=== PATIENT | male | born 1975 | race Caucasian/White ===

== ENCOUNTER 2018-12-03 20:37 | Inpatient (IN) | payer MEDICAID, OTHER ==
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
[2018-12-03] MEDS ORDERED: LORazepam 1 MG TAB PO PRN (23:28)
[2018-12-03] MEDS ORDERED: ACETAMINOPHEN TAB 325 MG TAB PO PRN (23:28)
[2018-12-03] MEDS ORDERED: ZIPRASIDONE 20 MG VIAL IM PRN (23:28)
[2018-12-03] MEDS ORDERED: MAGNESIUM HYDROXIDE 2,400 MG/10 ML CUP PO PRN (23:28)
[2018-12-03] MEDS ORDERED: MAG HYDROX/AL HYDROX/SIMETH 30 ML CUP PO PRN (23:28)
--- NOTE | 2018-12-04 | P.HPIM ---
History of Present Illness H&P Date: 12/03/18 The patient is a 43 yo M with a PMH of HLD, active smoker, depression, and polysubstance abuse presented to the ED for depression and suicidal ideation. The patient reported that he did not wish to be around people any longer and was having thoughts of hurting himself and was thereby admitted to the MHU. The patient was seen in the MHU. He reported feeling somewhat the same since admission. He states poor follow-up with a physician and notes not taking any medications. He did state that he made lifestyle modifications to improve his lipid profile. He however denied any active complaints. Denied chest pain, SOB, fever, chills, abd pain, nausea, vomiting, diarrhea, or sick contacts. Review of Systems Pertinent positives and negatives as discussed in HPI, a complete review of systems was performed and all other systems are negative. Past Medical History Past Medical History: Hyperlipidemia Additional Past Medical History / Comment(s): arthritis, History of Any Multi-Drug Resistant Organisms: None Reported Additional Past Surgical History / Comment(s): corrective srugery to mouth and throat as a child, Past Psychological History: Anxiety, Depression, PTSD Smoking Status: Current every day smoker Past Alcohol Use History: None Reported Past Drug Use History: None Reported Medications and Allergies Home Medications Medication Instructions Recorded Confirmed Type Calcium Carbonate [Tums] 1,000 mg PO TID PRN 12/03/18 12/03/18 History Allergies Allergy/AdvReac Type Severity Reaction Status Date / Time No Known Allergies Allergy Verified 12/03/18 23:15 Physical Exam Vitals: Vital Signs Temp Pulse Resp BP Pulse Ox 12/03/18 23:18 98.9 F 81 16 137/92 95 12/03/18 20:51 98.5 F 108 H 17 138/95 95 Intake and Output 12/03/18 12/03/18 12/04/18 14:59 22:59 06:59 Other: Weight 97.976 kg General: non toxic, no distress, appears at stated age, obese Derm: no unusual rashes/lesions no unusual ecchymoses, warm, dry Head: atraumatic, normocephalic, symmetric Eyes: EOMI, no lid lag, anicteric sclera, pupils equal round reactive to light ENT: Nose and ears atraumatic, no thrush, no pharyngeal erythema Neck: No thyromegaly, no cervical lymphadenopathy, trachea midline, supple Mouth: no lip lesion, mucus membranes moist Cardiovascular: S1S2 reg, no murmur, positive posterior tibial pulse bilateral, no edema, capillary refill less than 2 seconds Lungs: CTA bilateral, no rhonchi, no rales , no accessory muscle use Abdominal: soft, nontender to palpation, no guarding, no appreciable organomegaly, normal bowel sounds Ext: no gross muscle atrophy, muscle strength 5 out of 5 in all 4 extremities grossly, no contractures, Neuro: CN II-XI grossly intact, light touch intact all 4 extremities, finger to nose within normal limits, Psych: Alert, oriented, flat affect Assessment and Plan Plan: Hypertension -Currently borderline BP -Monitor and if continues to be high, will start antihypertensives Active tobacco abuse -Patient advised on the importance of cessation -Nicotine patch as needed Polysubstance abuse -Patient advised on importance of cessation Depression with suicidal ideation -As per psychiatry Thank you for allowing us to participate in the care of this patient. We will follow peripherally. Do not hesitate to contact us with questions. Someone can be reached from the [facility] hospitalist group at all hours of the day at [phone].
[2018-12-04 01:18] VITALS: BMI 29.7
[2018-12-04 09:01] LABS: Basophils % (A) 0 %; Eosinophils # (A) 0.2 k/uL (0-0.7); Eosinophils % (A) 2 %; HCT 47.1 % (39.0-53.0); HGB 15.4 gm/dL (13.0-17.5); Lymphocytes # (A) 1.7 k/uL (1.0-4.8); Lymphocytes % (A) 16 %; MCH 31.2 pg (25.0-35.0); MCHC 32.6 g/dL (31.0-37.0); MCV 95.6 fL (80.0-100.0); Mean Platelet Volume 7.9; Monocytes # (A) 0.7 k/uL (0-1.0); Monocytes % (A) 7 %; Neutrophils # (A) 7.5 k/uL (1.3-7.7); Neutrophils % (A) 73 %; Platelet Count 279 k/uL (150-450); RBC 4.92 m/uL (4.30-5.90); RDW 13.9 % (11.5-15.5); WBC 10.3 k/uL (3.8-10.6)
[2018-12-04 09:19] LABS: ALT 30 U/L (21-72); AST 22 U/L (17-59); African American GFR (CKD) >90 (>60 ml/min/1.73 sqM); Albumin 3.4 g/dL (3.5-5.0); Alkaline Phosphatase 82 U/L (38-126); Anion Gap 3 mmol/L; Blood Urea Nitrogen 15 mg/dL (9-20); Calcium 8.9 mg/dL (8.4-10.2); Carbon Dioxide 32 mmol/L (22-30); Chloride 103 mmol/L (98-107); Cholesterol 181 mg/dL (<200); Glucose 94 mg/dL (74-99); HDL Cholesterol 42 mg/dL (40-60); LDL Cholesterol,Calculated 122 mg/dL (0-99); Potassium 4.7 mmol/L (3.5-5.1); Sodium 138 mmol/L (137-145); Total Bilirubin 0.8 mg/dL (0.2-1.3); Total Protein 5.6 g/dL (6.3-8.2); Triglycerides 87 mg/dL (<150)
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
[2018-12-05 06:42] VITALS: BP 111/70; PULSE 61; RESP 16; TEMP 98.1
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
[2018-12-05 12:25] LABS: Hemoglobin A1C 5.4 % (4.0-6.0)
== END 2018-12-05 11:52 | disposition home or self-care (01) | DRG 881 ==
LOC: EC 20:37 → 3MHU 22:37
PROVIDERS: ADMIT Psychiatry & Neurology Psychiatry; ATTEND Psychiatry & Neurology Psychiatry
DX: F32.9 Major depressive disorder, single episode, unspecified (principal); F43.10 Post-traumatic stress disorder, unspecified; E78.00 Pure hypercholesterolemia, unspecified; E78.5 Hyperlipidemia, unspecified; F17.210 Nicotine dependence, cigarettes, uncomplicated; I10 Essential (primary) hypertension; K21.9 Gastro-esophageal reflux disease without esophagitis; Z65.3 Problems related to other legal circumstances; Z87.730 Personal history of (corrected) cleft lip and palate; Z91.19 Patient's noncompliance with other medical treatment and regimen; Z62.810 Personal history of physical and sexual abuse in childhood; Z91.5 Personal history of self-harm; F60.2 Antisocial personality disorder; M19.90 Unspecified osteoarthritis, unspecified site
CPT/HCPCS: 80053; 80061; 82075; 83036; 84443; 85025; 99285

== ENCOUNTER 2019-01-31 13:03 | Emergency (ER) | payer OTHER ==
--- NOTE | 2019-01-31 14:05 | XR ---
EXAMINATION TYPE: XR foot complete LT DATE OF EXAM: 01/31/2019 CLINICAL HISTORY: Foot pain for one week. TECHNIQUE: Frontal, lateral, and oblique images of the left foot are obtained. COMPARISON: None FINDINGS: There is no acute fracture/dislocation evident in the left foot. Tiny superior calcaneal s pur. Accessory ossicle near the cuboid bone. Mild narrowing and spurring talonavicular articulation. The overlying soft tissue appears unremarkable. IMPRESSION: As above.
--- NOTE | 2019-01-31 14:09 | ED ---
Extremity Problem HPI - General Chief complaint: Extremity Problem,Nontraumatic Stated complaint: Foot pain Time Seen by Provider: 01/31/19 13:30 Source: patient, RN notes reviewed Mode of arrival: ambulatory Limitations: no limitations - History of Present Illness Initial comments: This a 43-year-old male presents emergency from she went left foot pain. Patient states has been bothersome over the last 10-14 days. Patient states that he forces a large amount of large bend at work and states that he feels that this exacerbates it. Patient denies any numbness or tingling. He states the pain is just proximal to his first and second digit. He states he gets swollen after work denies any current redness, increased warmth, numbness or tingling or any pain in his calf. Patient denies any prior fractures no trauma noted. - Related Data Previous Rx's Medication Instructions Recorded Ibuprofen [Motrin] 600 mg PO Q8HR PRN #30 tab 01/31/19 Allergies Allergy/AdvReac Type Severity Reaction Status Date / Time No Known Allergies Allergy Verified 01/31/19 13:41 Review of Systems ROS Statement: Those systems with pertinent positive or pertinent negative responses have been documented in the HPI. ROS Other: All systems not noted in ROS Statement are negative. Past Medical History Past Medical History: Hyperlipidemia Additional Past Medical History / Comment(s): arthritis, History of Any Multi-Drug Resistant Organisms: None Reported Additional Past Surgical History / Comment(s): corrective srugery to mouth and throat as a child, Past Anesthesia/Blood Transfusion Reactions: No Reported Reaction Past Psychological History: Anxiety, Depression, PTSD Smoking Status: Current every day smoker Past Alcohol Use History: Daily, Heavy Past Drug Use History: Marijuana General Exam Limitations: no limitations General appearance: alert, in no apparent distress Head exam: Present: atraumatic, normocephalic, normal inspection Respiratory exam: Present: normal lung sounds bilaterally. Absent: respiratory distress, wheezes, rales, rhonchi, stridor Cardiovascular Exam: Present: regular rate, normal rhythm, normal heart sounds. Absent: systolic murmur, diastolic murmur, rubs, gallop, clicks Extremities exam: Present: other (Left foot there is tenderness the first and second metatarsal region, neurovascular intact, there is no erythema pedal pulses equal bilaterally Refill less than 2 seconds no ankle or calf tenderness) Course Vital Signs 01/31/19 13:23 Temperature 98.0 F Pulse Rate 97 Respiratory 16 Rate Blood Pressure 136/85 O2 Sat by Pulse 98 Oximetry Medical Decision Making - Medical Decision Making 43-year-old male present emergency Department for left foot pain x-rays were obtained which show some spurring, arthritic changes. Patient has no evidence of clinical gallop, no neurovascular issues. Patient symptoms more related to arthritis, tendinitis. Patient was started on anti-inflammatories patient will follow-up Dr. araujo and return for any worsening symptoms. Disposition Clinical Impression: Arthritis of left foot, Left foot pain Disposition: HOME SELF-CARE Condition: Stable Instructions (If sedation given, give patient instructions): Arthralgia (ED) Additional Instructions: Please return to the Emergency Department if symptoms worsen or any other concerns. Prescriptions: Ibuprofen [Motrin] 600 mg PO Q8HR PRN #30 tab PRN Reason: Pain Is patient prescribed a controlled substance at d/c from ED?: No Referrals: None,Stated [Primary Care Provider] - 1-2 days Syed Preciado MD [Medical Doctor] - 1-2 days Time of Disposition: 14:08
[2019-01-31 14:31] VITALS: BP 144/88; PULSE 92; RESP 18; TEMP 97.8
== END 2019-01-31 14:31 | disposition home or self-care (01) ==
LOC: EC 13:03
DX: M19.072 Primary osteoarthritis, left ankle and foot (principal); M77.52 Other enthesopathy of left foot and ankle; F17.200 Nicotine dependence, unspecified, uncomplicated
CPT/HCPCS: 99283

== ENCOUNTER 2019-08-17 17:02 | Emergency (ER) | payer OTHER ==
[2019-08-17] MEDS ORDERED: LORazepam 2 MG/ML INJ IM STA (17:31)
[2019-08-17] MEDS ORDERED: diphenhydrAMINE 50 MG/ML 1 ML VIAL IM STA (17:31)
[2019-08-17] MEDS ORDERED: HALOPERIDOL LACTATE 5 MG/ML 1 ML VIAL IM ONE (17:32)
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
[2019-08-17] MEDS ORDERED: DIPH,PERTUS(ACELL)TETVAC-LF 0.5 ML VIAL IM ONE (17:46)
[2019-08-17 17:47] LABS: Appearance,Urine Clear (Clear); Bilirubin,Urine Negative (Negative); Blood,Urine Negative (Negative); Color,Urine Colorless; Glucose,Urine (UA) Negative (Negative); Ketones,Urine Negative (Negative); Leukocyte Esterase,Urine Negative (Negative); Nitrite,Urine Negative (Negative); PH, Urine 5.5 (5.0-8.0); Protein,Urine Negative (Negative); Specific Gravity,Urine 1.002 (1.001-1.035); Urobilinogen,Urine <2.0 mg/dL (<2.0)
[2019-08-17 17:54] VITALS: BP 146/79; PULSE 86; RESP 16
[2019-08-17 18:03] LABS: Amphetamine Screen,Urine Not Detected (NotDetected); Barbiturate Screen,Urine Not Detected (NotDetected); Benzodiazepines Screen,Urine Not Detected (NotDetected); Cocaine Screen,Urine Not Detected (NotDetected); Methadone Screen, Urine Not Detected (NotDetected); Opiate Screen,Urine Not Detected (NotDetected); Oxycodone Screen, Urine Not Detected (NotDetected); Phencyclidine Screen,Urine Not Detected (NotDetected); Tricyclic Antidepressant,Urine Not Detected (NotDetected); Urn Cannabinoid Scrn Not Detected (NotDetected)
== END 2019-08-18 06:00 | disposition home or self-care (01) ==
LOC: EC 17:02
DX: F10.129 Alcohol abuse with intoxication, unspecified (principal); R45.1 Restlessness and agitation; S81.812A Laceration without foreign body, left lower leg, initial encounter; S81.811A Laceration without foreign body, right lower leg, initial encounter; F22 Delusional disorders; F17.200 Nicotine dependence, unspecified, uncomplicated; Z23 Encounter for immunization; Y90.6 Blood alcohol level of 120-199 mg/100 ml; X58.XXXA Exposure to other specified factors, initial encounter
CPT/HCPCS: 99285 ×2; 96372 ×4; 90471 ×2; 36415; 81003; 80306; 90715; G0480; J2060; J1200; J1630; 80320

== ENCOUNTER 2019-09-28 13:09 | Emergency (ER) | payer OTHER ==
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
[2019-09-28 15:09] VITALS: BP 120/80; PULSE 74; RESP 16; TEMP 98.3
== END 2019-09-28 15:12 | disposition home or self-care (01) ==
LOC: EC 13:09
DX: S93.402A Sprain of unspecified ligament of left ankle, initial encounter (principal); F17.200 Nicotine dependence, unspecified, uncomplicated; Z88.8 Allergy status to other drugs, medicaments and biological substances; V13.4XXA Pedal cycle driver injured in collision with car, pick-up truck or van in traffic accident, initial encounter; Y92.410 Unspecified street and highway as the place of occurrence of the external cause
CPT/HCPCS: 72170; 73590; 73610; 71046; 99284; 29515; L4350

== ENCOUNTER 2020-06-07 00:58 | Emergency (ER) | payer OTHER ==
--- NOTE | 2020-06-07 01:26 | ED ---
Psych HPI - General Chief Complaint: Psychiatric Symptoms Stated Complaint: Mental Health Time Seen by Provider: 06/07/20 01:06 Source: patient, family Mode of arrival: ambulatory - History of Present Illness Initial Comments: Patient is a 44-year-old man who presents with complaint that he is feeling more depressed than his usual. Patient otherwise not forthcoming. MD Complaint: feels depressed -: unknown Associated Psychiatric Symptoms: depression History of same: Yes Quality: getting worse Improves With: none Worsens With: none Context: recent alcohol abuse Associated Symptoms: denies other symptoms - Related Data Previous Rx's Medication Instructions Recorded Ibuprofen [Motrin] 600 mg PO Q8HR PRN #30 tab 01/31/19 Allergies Allergy/AdvReac Type Severity Reaction Status Date / Time lamotrigine [From Lamictal] Allergy Itching Verified 06/07/20 01:05 Review of Systems ROS Statement: Those systems with pertinent positive or pertinent negative responses have been documented in the HPI. ROS Other: All systems not noted in ROS Statement are negative. Constitutional: Denies: fever Respiratory: Denies: cough, dyspnea Cardiovascular: Denies: chest pain, palpitations Gastrointestinal: Denies: abdominal pain, vomiting, diarrhea Genitourinary: Denies: dysuria Musculoskeletal: Denies: back pain Skin: Denies: rash Neurological: Denies: headache, weakness, numbness, confusion Psychiatric: Reports: depression, suicidal thoughts. Denies: auditory hallucinations, visual hallucinations, homicidal thoughts Past Medical History Past Medical History: Hyperlipidemia Additional Past Medical History / Comment(s): arthritis, History of Any Multi-Drug Resistant Organisms: None Reported Additional Past Surgical History / Comment(s): corrective srugery to mouth and throat as a child, Past Anesthesia/Blood Transfusion Reactions: No Reported Reaction Past Psychological History: Anxiety, Depression, PTSD Smoking Status: Current every day smoker Past Alcohol Use History: Abuse, Heavy Past Drug Use History: Cocaine, Marijuana General Exam Limitations: no limitations General appearance: alert, in no apparent distress Head exam: Present: atraumatic, normocephalic Eye exam: Present: normal appearance. Absent: scleral icterus, conjunctival injection ENT exam: Present: normal oropharynx Respiratory exam: Present: normal lung sounds bilaterally. Absent: respiratory distress, wheezes, rales, rhonchi, stridor Cardiovascular Exam: Present: regular rate, normal rhythm, normal heart sounds. Absent: systolic murmur, diastolic murmur, rubs, gallop GI/Abdominal exam: Present: soft. Absent: distended, tenderness, guarding, rebound, rigid Extremities exam: Present: normal inspection, normal capillary refill. Absent: pedal edema Neurological exam: Present: alert, normal gait Skin exam: Present: warm, dry, intact, normal color. Absent: rash Course Vital Signs 06/07/20 06/07/20 01:00 06:04 Temperature 98.9 F 98.5 F Pulse Rate 115 H 100 Respiratory 20 18 Rate Blood Pressure 137/90 127/77 O2 Sat by Pulse 96 95 Oximetry Medical Decision Making - Medical Decision Making The patient is seen by behavioral health after sobriety and is recanting his statements. He does state he feels better. I reviewed with the patient and he is hafsa for safety. - Lab Data Lab Results 06/07/20 Range/Units 01:20 Urine Opiates Screen Not Detected (NotDetected) Ur Oxycodone Screen Not Detected (NotDetected) Urine Methadone Screen Not Detected (NotDetected) Ur Propoxyphene Screen Not Detected (NotDetected) Ur Barbiturates Screen Not Detected (NotDetected) U Tricyclic Antidepress Not Detected (NotDetected) Ur Phencyclidine Scrn Not Detected (NotDetected) Ur Amphetamines Screen Not Detected (NotDetected) U Methamphetamines Scrn Not Detected (NotDetected) U Benzodiazepines Scrn Not Detected (NotDetected) Urine Cocaine Screen Not Detected (NotDetected) U Marijuana (THC) Screen Detected H (NotDetected) Disposition Clinical Impression: Alcohol intoxication Disposition: HOME SELF-CARE Condition: Good Instructions (If sedation given, give patient instructions): Mood Disorders (ED) Is patient prescribed a controlled substance at d/c from ED?: No Referrals: None,Stated [Primary Care Provider] - 1-2 days
[2020-06-07 01:44] LABS: Amphetamine Screen,Urine Not Detected (NotDetected); Barbiturate Screen,Urine Not Detected (NotDetected); Benzodiazepines Screen,Urine Not Detected (NotDetected); Cocaine Screen,Urine Not Detected (NotDetected); Methadone Screen, Urine Not Detected (NotDetected); Opiate Screen,Urine Not Detected (NotDetected); Oxycodone Screen, Urine Not Detected (NotDetected); Phencyclidine Screen,Urine Not Detected (NotDetected); Tricyclic Antidepressant,Urine Not Detected (NotDetected); Urn Cannabinoid Scrn Detected (NotDetected)
[2020-06-07 06:06] VITALS: BP 127/77; PULSE 100; RESP 18; TEMP 98.5
== END 2020-06-07 07:00 | disposition home or self-care (01) ==
LOC: EC 00:58
DX: F10.129 Alcohol abuse with intoxication, unspecified (principal); F17.200 Nicotine dependence, unspecified, uncomplicated; Z88.8 Allergy status to other drugs, medicaments and biological substances; Y90.9 Presence of alcohol in blood, level not specified
CPT/HCPCS: 80306; 82075; 99284

== ENCOUNTER 2020-08-25 09:54 | Emergency (ER) | payer OTHER ==
[2020-08-25 10:00] VITALS: BP 188/110; PULSE 84; RESP 18; TEMP 97.6
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
== END 2020-08-25 10:10 | disposition left against medical advice (07) ==
LOC: EC 09:54
DX: R53.83 Other fatigue (principal); F41.9 Anxiety disorder, unspecified; F32.9 Major depressive disorder, single episode, unspecified; F17.200 Nicotine dependence, unspecified, uncomplicated; E78.5 Hyperlipidemia, unspecified; F12.90 Cannabis use, unspecified, uncomplicated; F14.90 Cocaine use, unspecified, uncomplicated
CPT/HCPCS: 99283

== ENCOUNTER 2020-08-25 11:35 | Inpatient (IN) | payer MEDICAID, OTHER ==
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
[2020-08-25] MEDS ORDERED: ACETAMINOPHEN TAB 325 MG TAB PO PRN (14:03)
[2020-08-25] MEDS ORDERED: MAG HYDROX/AL HYDROX/SIMETH 30 ML CUP PO PRN (14:03)
[2020-08-25] MEDS ORDERED: MAGNESIUM HYDROXIDE 2,400 MG/10 ML CUP PO PRN (14:03)
[2020-08-25] MEDS ORDERED: LORazepam 2 MG/ML INJ IM PRN (14:08)
[2020-08-25] MEDS ORDERED: HALOPERIDOL LACTATE 5 MG/ML 1 ML VIAL IM PRN (14:08)
[2020-08-26] MEDS: LORazepam 1 MG TAB PO PRN ×3 (03:37→18:49)
[2020-08-26] MEDS: haloperidoL 5 MG TAB PO PRN ×2 (03:37→18:49)
--- NOTE | 2020-08-26 03:57 | P.PN ---
Progress Note - Text Progress Note Date: 08/25/20 patient was not appropriate for evaluation at this time
--- NOTE | 2020-08-26 11:52 | P.HP ---
Psychiatric H&P - . H&P Date: 08/26/20 History & Physical: Allergies Allergy/AdvReac Type Severity Reaction Status Date / Time lamotrigine From Lamictal AdvReac Itching Verified 08/25/20 12:20 Vital Signs Temp 96.7 F L 08/25/20 14:33 Pulse 95 08/25/20 14:33 Resp 16 08/25/20 14:33 BP 147/87 08/25/20 14:33 Pulse Ox 99 08/25/20 11:58 Intake & Output 08/25/20 08/26/20 08/26/20 18:59 06:59 18:59 Weight 81.647 kg Laboratory Last Values Carbon Monoxide, Quant 4.8 % (<10.0) 08/25/20 12:17 Coronavirus (PCR) Not Detected (Not Detectd) 08/25/20 12:34 08/26/20 11:41 IDENTIFYING DATA: Patient is a 45-year-old male who is currently homeless has no kids is and is unemployed. HPI: Patient presented to the hospital yesterday after requesting a psychiatric evaluation. Patient initially came earlier yesterday with complaints of being poisoned at carbon monoxide and requested to leave AMA. After patient came back to the hospital he was more delusional and claiming that people were trying to poison him and ER staff was mistreating him. He refused blood draw and UDS. He believed that people were after him and trying to kill him and was fairly paranoid and delusional. He was admitted voluntarily to the mental health unit for evaluation and treatment. She was seen today in the office and appeared to be disheveled in appearance had multiple piercings and tattoos. He states that he came to the hospital "because I was using too much drugs and alcohol". He claims that he has been using cocaine frequently, methamphetamine approximately 1 g a day and alcohol as he states that he has been using approximately one to two fifths of liquor/day or if he drinks beers she'll drink several in one sitting. He states that he sometimes gets the shakes after stopping alcohol ho wever denies any history of DTs or seizures from withdrawal in the past. He claims that currently he is not having any shakes however does claim that he has anxiety. He claims that he came to the hospital because she believed that someone was out to kill him. He states that he is feeling mildly paranoid at this time and was fairly vague about the details of who may be after him and evasive. He states that he feels safer in the hospital. He appeared to be uninterested in the conversation and had poor eye contact. He claims that he does have auditory hallucinations frequently that "don't tell me much but have me listening in on conversations". He states that he also has suicidal thoughts however no intent or plan at this time. Claims that he has been feeling depressed chronically. He admits to poor sleep. Patient denies any homicidal ideations intent or plan. At this time patient denies any auditory or visual hallucinations. Patient denies any flight of ideas racing thoughts and increased in goal directed behavior. Patient admits to using marijuana approximately 1 ounce a day, cigarettes daily and methamphetamine, cocaine and alcohol as described above. He states that he has been in rehab and did outpatient substance use treatment several times in the past however claims that it has failed. PAST PSYCHIATRIC HISTORY: Patient states that he has a history of polysubstance abuse and depression. Patient denies being on any psychiatric medications. Patient was previously admitted to the mental health unit in 12/2018 however was discharged after 2 days as patient was not cooperative with treatment and not taking his medications and also signed AMA. Patient denies any psychiatric outpatient follow-up. He claims that he has attempted suicide approximately 4 times in the past including overdosing and cutting himself. PMH: Hyperlipidemia and arthritis ALLERGIES: as per EMR CHEMICAL DEPENDENCY HISTORY: as per HPI FAMILY PSYCHIATRIC/SUBSTANCE USE HISTORY: He states that his brother has depression and his sister has bipolar disorder. He states that his father is some form of mental illness. SOCIAL HISTORY: Patient was born and raised in [place] and moved between [place] and [place] while growing up. He states that he completed the eighth grade and then came back to get his GED afterwards. 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 He states that he does not have any kids is and is currently homeless. He states that he was arrested and served penitentiary time for breaking and entering, assault and armed robbery. He states that he served 2 sentences in 2003 and also 2006. MENTAL STATUS EXAM: General Appearance: Patient appears to be disheveled in appearance, long schaeffer, several tattoos and facial piercings. He appears to be stated age is alert, evasive and guarded. Patient appears to have poor hygiene and grooming. Behavior: Patient is seated without any agitated behavior. Evasive and guarded Speech: Patient's speech is fluent and nonpressured. Soft tone of voice Mood/Affect: Patient reports their mood is depressed and anxious, affect is congruent and constricted. Suicidality/Homicidality: Patient denies having any homicidal ideation intent or plan. He admits to ongoing suicidal thoughts however no intent or plan. Perceptions: Patient denies any visual hallucinations in claims that he hears auditory hallucinations Though content/process: [place], poverty of content. Guarded/evasive. Endorsing paranoia. Memory and concentration: AOX3, grossly intact for the purposes of this session. Can spell "WORLD" backwards Judgment and insight: poor STRENGTHS/WEAKNESSES: strength is that patient is resilient. Weakness is that patient has poor judgment and is impulsive INTELLECT: average IMPRESSIONS: Major depressive disorder, with psychotic features Methamphetamine abuse Cocaine abuse Cannabis use disorder Alcohol abuse, currently in withdrawal Nicotine dependence Antisocial personality traits PLAN: -Patient is admitted under voluntary status to MHU for stabilization of psychiatric symptoms and safety. Patient has signed adult voluntary form and medication consent and is placed in patient's chart. -Medications : Will start patient on Cymbalta 30 mg daily for mood/anxiety/pain. Started patient on Risperdal 1 mg daily at bedtime for mood stabilization/psychosis. Melatonin 5 mg daily at bedtime when necessary for insomnia. -Ativan and Haldol PRN for agitation/aggression -Started thiamine, MVM for etoh use -WA protocol with Ativan PRN for ETOH withdrawal -Patient was counselled on substance abuse and desired to cut back on use however was fairly superficial about this -Patient was informed of the risks, benefits and side effects of the medication and patient verbally consented to taking the medications. Patient signed med consent form and was placed in chart. -Internal Medicine consult to perform medical evaluation and physical. -NRT - nicotine patch -SW on board for discharge planning. Encourage patient to participate in groups to work on coping skills. At this time patient is ambivalent about going to rehab for his substance use problems. We'll continue to reevaluate and speak with patient about this.
[2020-08-26] MEDS: NICOTINE 14MG/24HR PATCH TRANSDERM SCH (12:31)
[2020-08-26] MEDS: FOLIC ACID 1 MG TAB PO SCH (12:31)
[2020-08-26] MEDS: THIAMINE 100 MG TAB PO SCH (12:31)
[2020-08-26] MEDS: DULoxetine HCL 30 MG CAPSULE.DR PO SCH (12:31)
[2020-08-26] MEDS: MULTIVITAMINS, THERA 1 EACH TAB PO SCH (12:31)
[2020-08-26 12:36] VITALS: TEMP 96.8
[2020-08-26 15:23] VITALS: BMI 24.4
[2020-08-26] MEDS: risperiDONE 1 MG TAB PO SCH (20:59)
[2020-08-27] MEDS: MULTIVITAMINS, THERA 1 EACH TAB PO SCH (08:38)
[2020-08-27] MEDS: DULoxetine HCL 30 MG CAPSULE.DR PO SCH (08:38)
[2020-08-27] MEDS: THIAMINE 100 MG TAB PO SCH (08:38)
[2020-08-27] MEDS: FOLIC ACID 1 MG TAB PO SCH (08:39)
[2020-08-27] MEDS: NICOTINE 14MG/24HR PATCH TRANSDERM SCH (08:41)
--- NOTE | 2020-08-27 10:40 | P.PN ---
Progress Note - Text Progress Note Date: 08/27/20 Interval History: Patient was seen lying in his bed this morning covered in his blankets. He awoke briefly when consumer loan underwriter attempted to speak with patient however patient appeared to be irritable and claims that he did not want to get out of bed and refused to speak to consumer loan underwriter. He turned around and covered his head with the blankets. Patient was noted to have been taking his cymbalta however not taking his risperdal. Mental Status Exam: General Appearance: Patient appears to be disheveled in appearance, long schaeffer, stated age is alert, difficult to redirect and uncooperative/hostile. Behavior: Patient is laying in bed and appears to be irritable and uncooperative Speech: Patient's speech is fluent and nonpressured. Mood/Affect: Unable to assess Suicidality/Homicidality: Unable to assess Perceptions: Unable to assess Though content/process: [place], demanding. Memory and concentration: Unable to assess Judgment and insight: Poor Assessment Major depressive disorder, with psychotic features Methamphetamine abuse Cocaine abuse Cannabis use disorder Alcohol abuse, currently in withdrawal Nicotine dependence Antisocial personality traits Plan: -Patient continues to meet criteria for inpatient psychiatric admission for symptom stabilization and safety. Patient has signed adult voluntary form and medication consent and was placed in patient's chart. -Medications: Continue Cymbalta 30 mg daily for mood/anxiety/pain. Continue with Risperdal 1 mg daily at bedtime for mood stabilization/psychosis. Melatonin 5 mg daily at bedtime when necessary for insomnia. -When necessary Ativan and Haldol for agitation/aggression. -thiamine, MVM for etoh use -CIWA protocol with Ativan PRN for ETOH withdrawal -NRT - nicotine patch -SW on board for discharge planning. Encouraged the patient to participate in milieu. Patient is not willing at this time to go to substance rehab.
[2020-08-27 19:15] VITALS: BP 118/76; PULSE 111; RESP 14
[2020-08-27] MEDS: risperiDONE 1 MG TAB PO SCH (20:10)
[2020-08-27] MEDS: LORazepam 1 MG TAB PO PRN (20:11)
[2020-08-28] MEDS: MULTIVITAMINS, THERA 1 EACH TAB PO SCH (08:25)
[2020-08-28] MEDS: FOLIC ACID 1 MG TAB PO SCH (08:25)
[2020-08-28] MEDS: NICOTINE 14MG/24HR PATCH TRANSDERM SCH ×2 (08:25→08:26)
[2020-08-28] MEDS: THIAMINE 100 MG TAB PO SCH (08:25)
[2020-08-28] MEDS ORDERED: DULoxetine HCL 60 MG CAPSULE.DR PO SCH (09:00)
--- NOTE | 2020-08-28 09:42 | P.DS ---
Providers Date of admission: 08/25/20 14:00 Expected date of discharge: 08/28/20 Attending physician: Oh Engel MD Consults: 08/25/20 14:03 Consult Physician Routine Consulting Provider: Akil Huston Consult Reason/Comments: medical management Do you want consulting provider notified?: Yes Primary care physician: Stated None - Discharge Diagnosis(es) (1) Major depressive disorder with psychotic features Current Visit: Yes Status: Acute Priority: High (2) Methamphetamine abuse Current Visit: Yes Status: Acute Priority: Medium (3) Cocaine abuse Current Visit: Yes Status: Acute Priority: Medium (4) Cannabis use disorder, mild, abuse Current Visit: Yes Status: Acute Priority: Medium (5) Alcohol abuse Current Visit: Yes Status: Acute Priority: Medium (6) Nicotine dependence Current Visit: Yes Status: Acute Priority: Low (7) Antisocial behavior Current Visit: Yes Status: Acute Priority: Medium Hospital Course: Admission HPI: Admission note was completed by consumer loan underwriter "Patient is a 45-year-old male who is currently homeless has no kids is and is unemployed. Patient presented to the hospital yesterday after requesting a psychiatric evaluation. Patient initially came earlier yesterday with complaints of being poisoned at carbon monoxide and requested to leave AMA. After patient came back to the hospital he was more delusional and claiming that people were trying to poison him and ER staff was mistreating him. He refused blood draw and UDS. He be lieved that people were after him and trying to kill him and was fairly paranoid and delusional. He was admitted voluntarily to the mental health unit for evaluation and treatment. She was seen today in the office and appeared to be disheveled in appearance had multiple piercings and tattoos. He states that he came to the hospital "because I was using too much drugs and alcohol". He claims that he has been using cocaine frequently, methamphetamine approximately 1 g a day and alcohol as he states that he has been using approximately one to two fifths of liquor/day or if he drinks beers she'll drink several in one sitting. He states that he sometimes gets the shakes after stopping alcohol however denies any history of DTs or seizures from withdrawal in the past. He claims that currently he is not having any shakes however does claim that he has anxiety. He claims that he came to the hospital because she believed that someone was out to kill him. He states that he is feeling mildly paranoid at this time and was fairly vague about the details of who may be after him and evasive. He states that he feels safer in the hospital. He appeared to be uninterested in the conversation and had poor eye contact. He claims that he does have auditory hallucinations frequently that "don't tell me much but have me listening in on conversations". He states that he also has suicidal thoughts however no intent or plan at this time. Claims that he has been feeling depressed chronically. He admits to poor sleep. Patient denies any homicidal ideations intent or plan. At this time patient denies any auditory or visual hallucinations. Patient denies any flight of ideas racing thoughts and increased in goal directed behavior. Patient admits to using marijuana approximately 1 ounce a day, cigarettes daily and methamphetamine, cocaine and alcohol as described above. He states that he has been in rehab and did outpatient substance use treatment several times in the past however claims that it has failed." Hospital course: Upon admission to the unit patient was initially is hearing voices, depressed and paranoid. Patient was however directable and agreeable to commence treatment and signed adult voluntary form. Patient soon after signed an AMA form on the second day of his hospitalization. Patient selectively took his medications initially then took all his medications on the last day. Patient got along well with other patients on the unit and followed unit protocol however mainly isolated in his room. Patient was compliant with the medications and denied any side effects throughout hospital course. Patient was started on and Risperdal 1 mg daily at bedtime for mood stabilization/psychosis, Cymbalta 60 mg daily for mood/anxiety/pain. Melatonin 5 mg daily at bedtime when necessary for insomnia. Patient spoke vaguely of his stressors however did not engage much in groups or activities during his hospitalization. Patient was also seen by medical team for history and physical exam. Throughout the course of the hospitalization patient gradually improved with regards to mood, anxiety, psychosis/paranoia, sleep. On the day of discharge patient denied any suicidal or homicidal ideations intent or plan denied any auditory or visual hallucinations. Patient endorsed wanting to live for his future and his family. The patient denied any access to guns or weapons. Patient denied any paranoia and did not endorse any delusions. Patient does have a significant history of substance abuse and was counseled on abstaining from all substances including alcohol and marijuana. Patient was offered however declined inpatient substance-abuse rehab. Patient elected to do outpatient substance use treatment program through [facility]. Patient was also counseled on the medications and need for regular compliance and was encouraged to follow-up with their outpatient appointment for mental health and also for primary care. Prior to discharge a family meeting was held over the phone with patient's sister Alexandra at [phone] to discuss disposition and answer any questions. She claims that there are no guns or weapons in the house and will be willing to pick patient up today from the hospital. Mental status exam: General Appearance: Patient appears to have a long schaeffer, glasses, multiple tattoos, stated age is alert, directable, and cooperative. Patient is in no acute distress and has improved hygiene and grooming Behavior: Patient is calmly seated without any agitated behavior. More cooperative today. Speech: Patient's speech is fluent and nonpressured. Mood/Affect: Patient reports their mood is "better", affect is congruent Suicidality/Homicidality: Patient denies having any suicidal or homicidal ideation intent or plan. Perceptions: Patient denies any auditory or visual hallucinations. Though content/process: There is no evidence of any delusional thought content and thought process is linear and goal-directed. more future oriented. Not endorsing any paranoia or delusions. Memory and concentration: AOX3, grossly intact for the purposes of this session. Can spell "WORLD" backwards correctly. Judgment and insight: chronically poor, however has improved with guarded prognosis Impression: Major depressive disorder, with psychotic features Methamphetamine abuse Cocaine abuse Cannabis use disorder Alcohol abuse Nicotine dependence Antisocial behavior Plan: -Continue with discharge today as patient has improved and stabilized psychiatrically and is not currently an imminent threat to himself and/or others. Patient will remain at chronically elevated risk for harm to self and/or others due to his polysubstance abuse. -Continue medications: Risperdal 1 mg daily at bedtime for psychosis/mood stabilization. Cymbalta 60 mg daily for mood/anxiety/pain. -Patient was counseled on the need for medication compliance and appropriate follow-up at mental health and also primary care for medical issues. Patient verbalized understanding and agreed. -Legal Associate had a family meeting with patient's sister Alexandra over the phone to arrange for disposition and to ensure safety upon discharge and answer any questions/concerns. She claims that there are no guns or weapons in the house. Social work also to arrange for patients follow up appointments with [facility] for psychiatric care along with follow up with primary care provider. -Patient counseled on abstaining from recreational drugs and marijuana and alcohol. Was informed/educated on the adverse effects on their physical and mental health. Patient verbally agreed and understood. Patient was offered substance abuse treatment however declined at this time. -Patient was instructed to return to the hospital or seek immediate medical care if their psychiatric or medical symptoms do worsen or reoccur. Allergies Allergy/AdvReac Type Severity Reaction Status Date / Time lamotrigine [From Lamictal] AdvReac Itching Verified 08/25/20 12:20 Laboratory Results Carbon Monoxide, Quant 4.8 % (<10.0) 08/25/20 12:17 Coronavirus (PCR) Not Detected (Not Detectd) 08/25/20 12:34 Vital Signs Temp 96.8 F L 08/26/20 12:35 Pulse 111 H 08/27/20 19:15 Resp 14 08/27/20 19:15 BP 118/76 08/27/20 19:15 Pulse Ox 99 08/25/20 11:58 Patient Condition at Discharge: Stable Plan - Discharge Summary Discharge Rx Participant: Yes New Discharge Prescriptions: New Folic Acid 1 mg PO DAILY 30 Days tab Multivitamins, Thera [Multivitamin (formulary)] 1 each PO DAILY 30 Days tab Acetaminophen Tab [Tylenol] 650 mg PO Q4HR PRN tab PRN Reason: Pain/Discomfort hydrOXYzine pamoate [Vistaril] 25 mg PO BID PRN 30 Days cap PRN Reason: Anxiety Thiamine [Vitamin B-1] 100 mg PO DAILY 30 Days tab DULoxetine HCL [Cymbalta] 60 mg PO DAILY 30 Days capsule. Nicotine 14Mg/24Hr Patch [Habitrol] 1 patch TRANSDERM DAILY 14 Days patch risperiDONE [RisperDAL] 1 mg PO HS 30 Days tab Discharge Medication List Acetaminophen Tab [Tylenol] 650 mg PO Q4HR PRN tab 08/28/20 [Rx] DULoxetine HCL [Cymbalta] 60 mg PO DAILY 30 Days capsule. 08/28/20 [Rx] Folic Acid 1 mg PO DAILY 30 Days tab 08/28/20 [Rx] Multivitamins, Thera [Multivitamin (formulary)] 1 each PO DAILY 30 Days tab 08/28/20 [Rx] Nicotine 14Mg/24Hr Patch [Habitrol] 1 patch TRANSDERM DAILY 14 Days patch 08/28/20 [Rx] Thiamine [Vitamin B-1] 100 mg PO DAILY 30 Days tab 08/28/20 [Rx] hydrOXYzine pamoate [Vistaril] 25 mg PO BID PRN 30 Days cap 08/28/20 [Rx] risperiDONE [RisperDAL] 1 mg PO HS 30 Days tab 08/28/20 [Rx] Follow up Appointment(s)/Referral(s): None,Stated [Primary Care Provider] - 1-2 days Activity/Diet/Wound Care/Special Instructions: Activity and diet as tolerated. Avoid the use of street drugs and alcohol. Take all medications as prescribed. When you are in need of refills on your medications please contact your medical provider and/or outpatient psychiatrist to have this done. Please go to scheduled outpatient appointment for aftercare treatment. If symptoms return or become worse, call the crisis line at and/or go to the nearest emergency room for evaluation. Discharge Disposition: HOME SELF-CARE
== END 2020-08-28 12:15 | disposition home or self-care (01) | DRG 885 ==
LOC: EC 11:35 → 3MHU 14:00
PROVIDERS: ADMIT Psychiatry & Neurology Psychiatry; ATTEND Psychiatry & Neurology Psychiatry
DX: F32.3 Major depressive disorder, single episode, severe with psychotic features (principal); R45.851 Suicidal ideations; F10.130 Alcohol abuse with withdrawal, uncomplicated; F15.10 Other stimulant abuse, uncomplicated; F14.10 Cocaine abuse, uncomplicated; Z20.822 Contact with and (suspected) exposure to COVID-19; F60.2 Antisocial personality disorder; F43.10 Post-traumatic stress disorder, unspecified; F41.9 Anxiety disorder, unspecified; E78.5 Hyperlipidemia, unspecified; F12.10 Cannabis abuse, uncomplicated; M19.90 Unspecified osteoarthritis, unspecified site; F17.210 Nicotine dependence, cigarettes, uncomplicated; G47.00 Insomnia, unspecified; Z71.3 Dietary counseling and surveillance; Z56.0 Unemployment, unspecified; Z59.0 Homelessness; Z88.8 Allergy status to other drugs, medicaments and biological substances; Z81.8 Family history of other mental and behavioral disorders
CPT/HCPCS: 82075; 82375; 87635; 99284

== ENCOUNTER 2020-09-04 11:16 | Emergency (ER) | payer OTHER ==
[2020-09-04 11:33] VITALS: BP 135/85; PULSE 117; RESP 20; TEMP 99.4
[2020-09-04 12:07] LABS: Appearance,Urine Clear (Clear); Bilirubin,Urine Negative (Negative); Blood,Urine Negative (Negative); Color,Urine Yellow; Glucose,Urine (UA) Negative (Negative); Ketones,Urine 1+ (Negative); Leukocyte Esterase,Urine Negative (Negative); Nitrite,Urine Negative (Negative); PH, Urine 6.5 (5.0-8.0); Protein,Urine Trace (Negative); Specific Gravity,Urine 1.021 (1.001-1.035)
[2020-09-04 12:25] LABS: Amphetamine Screen,Urine Detected (NotDetected); Barbiturate Screen,Urine Not Detected (NotDetected); Benzodiazepines Screen,Urine Not Detected (NotDetected); Cocaine Screen,Urine Not Detected (NotDetected); Methadone Screen, Urine Not Detected (NotDetected); Opiate Screen,Urine Not Detected (NotDetected); Oxycodone Screen, Urine Not Detected (NotDetected); Phencyclidine Screen,Urine Not Detected (NotDetected); Tricyclic Antidepressant,Urine Not Detected (NotDetected); Urn Cannabinoid Scrn Detected (NotDetected)
[2020-09-04] MEDS ORDERED: ASPIRIN 81 MG PO STA (12:25)
--- NOTE | 2020-09-04 12:28 | ED ---
Psych HPI - General Chief Complaint: Psychiatric Symptoms Stated Complaint: EPS eval Time Seen by Provider: 09/04/20 12:17 Source: patient, RN notes reviewed Mode of arrival: ambulatory - History of Present Illness Initial Comments: This is a 45-year-old male history depression who apparently was just recently discharged from the psychiatric unit who is back today with complaints of feeling anxious somewhat paranoid and suspicious of other people additionally he complains of left-sided burning chest pain is been going on since last evening. He did admit to doing alcohol and methamphetamine last evening. He states the pain is fairly constant feels also like heartburn only on the left side of his chest. He has no known history of heart or lung disease. He does have high cholesterol he states. He states the pain is low-grade at this time. No fevers chills nausea vomiting sweats cough shortness breath or other symptoms reported at this time. He does not seem to have a plan with respect to his suicidal ideation. He states his medications recently change in her not helping. MD Complaint: suicidal ideation, feels depressed, other - Related Data Home Medications Medication Instructions Recorded Confirmed Multivitamins, Thera [Multivitamin 1 tab PO DAILY 09/04/20 09/04/20 (formulary)] Previous Rx's Medication Instructions Recorded Acetaminophen Tab [Tylenol] 650 mg PO Q4HR PRN tab 08/28/20 DULoxetine HCL [Cymbalta] 60 mg PO DAILY 30 Days capsule. 08/28/20 Folic Acid 1 mg PO DAILY 30 Days tab 08/28/20 Nicotine 14Mg/24Hr Patch [Habitrol] 1 patch TRANSDERM DAILY 14 Days 08/28/20 patch Thiamine [Vitamin B-1] 100 mg PO DAILY 30 Days tab 08/28/20 hydrOXYzine pamoate [Vistaril] 25 mg PO BID PRN 30 Days cap 08/28/20 risperiDONE [RisperDAL] 1 mg PO HS 30 Days tab 08/28/20 Allergies Allergy/AdvReac Type Severity Reaction Status Date / Time lamotrigine [From Lamictal] AdvReac Itching Verified 09/04/20 13:26 Review of Systems ROS Statement: Those systems with pertinent positive or pertinent negative responses have been documented in the HPI. ROS Other: All systems not noted in ROS Statement are negative. Past Medical History Past Medical History: Hyperlipidemia Additional Past Medical History / Comment(s): arthritis, History of Any Multi-Drug Resistant Organisms: None Reported Additional Past Surgical History / Comment(s): corrective srugery to mouth and throat as a child, Past Anesthesia/Blood Transfusion Reactions: No Reported Reaction Past Psychological History: Anxiety, Depression, PTSD Smoking Status: Current every day smoker Past Alcohol Use History: Abuse, Heavy Past Drug Use History: Cocaine, Marijuana, Methamphetamine General Exam - General Exam Comments Initial Comments: Is a well-developed well-nourished awake alert oriented 3 male Limitations: no limitations General appearance: alert, in no apparent distress Head exam: Present: atraumatic, normocephalic, normal inspection Eye exam: Present: normal appearance, PERRL, EOMI. Absent: scleral icterus, conjunctival injection, periorbital swelling ENT exam: Present: normal exam, mucous membranes moist, other (Multiple ear piercings) Neck exam: Present: normal inspection, full ROM, other (No stridor JVD or bruits). Absent: tenderness, meningismus, lymphadenopathy Respiratory exam: Present: normal lung sounds bilaterally. Absent: respiratory distress, wheezes, rales, rhonchi, stridor Cardiovascular Exam: Present: regular rate, normal rhythm, normal heart sounds. Absent: systolic murmur, diastolic murmur, rubs, gallop, clicks GI/Abdominal exam: Present: soft, normal bowel sounds. Absent: distended, tenderness, guarding, rebound, rigid Extremities exam: Present: normal inspection, full ROM, normal capillary refill. Absent: tenderness, pedal edema, joint swelling, calf tenderness Back exam: Present: normal inspection Neurological exam: Present: alert, oriented X3, CN II-XII intact Psychiatric exam: Present: depressed, flat affect, suicidal ideation Skin exam: Present: warm, dry, intact, normal color, other (Multiple tattoos). Absent: rash Course Vital Signs 09/04/20 11:30 Temperature 99.4 F Pulse Rate 117 H Respiratory 20 Rate Blood Pressure 135/85 O2 Sat by Pulse 97 Oximetry Medical Decision Making - Medical Decision Making I did reevaluate patient several occasions he pain-free at this time. After follow-up the patient decided he did not want stay in hospital he reevaluated he denies any thoughts of suicide or homicidal ideation or plans at this time. He does agree that he will be following up with his Drs. outpatient. These refrain from alcohol and methamphetamine use. - Lab Data Result diagrams: 09/04/20 12:43 09/04/20 12:43 Lab Results 09/04/20 09/04/20 09/04/20 Range/Units 11:38 12:43 12:43 WBC 13.0 H (3.8-10.6) k/uL RBC 4.60 (4.30-5.90) m/uL Hgb 15.0 (13.0-17.5) gm/dL Hct 43.5 (39.0-53.0) % MCV 94.5 (80.0-100.0) fL MCH 32.6 (25.0-35.0) pg MCHC 34.5 (31.0-37.0) g/dL RDW 13.2 (11.5-15.5) % Plt Count 389 (150-450) k/uL MPV 8.6 Neutrophils % 81 % Lymphocytes % 12 % Monocytes % 5 % Eosinophils % 1 % Basophils % 0 % Neutrophils # 10.5 H (1.3-7.7) k/uL Lymphocytes # 1.6 (1.0-4.8) k/uL Monocytes # 0.6 (0-1.0) k/uL Eosinophils # 0.1 (0-0.7) k/uL Basophils # 0.0 (0-0.2) k/uL PT 10.2 (9.0-12.0) sec INR 0.9 (<1.2) APTT 22.8 (22.0-30.0) sec D-Dimer 0.29 (<0.60) mg/L FEU Sodium (137-145) mmol/L Potassium (3.5-5.1) mmol/L Chloride (98-107) mmol/L Carbon Dioxide (22-30) mmol/L Anion Gap mmol/L BUN (9-20) mg/dL Creatinine (0.66-1.25) mg/dL Est GFR (CKD-EPI)AfAm (>60 ml/min/1.73 sqM) Est GFR (CKD-EPI)NonAf (>60 ml/min/1.73 sqM) Glucose (74-99) mg/dL Calcium (8.4-10.2) mg/dL Magnesium (1.6-2.3) mg/dL Total Bilirubin (0.2-1.3) mg/dL AST (17-59) U/L ALT (4-49) U/L Alkaline Phosphatase (38-126) U/L Creatine Kinase (55-170) U/L Troponin I (0.000-0.034) ng/mL NT-Pro-B Natriuret Pep pg/mL Total Protein (6.3-8.2) g/dL Albumin (3.5-5.0) g/dL Lipase (23-300) U/L Urine Color Yellow Urine Appearance Clear (Clear) Urine pH 6.5 (5.0-8.0) Ur Specific [place] 1.021 (1.001-1.035) Urine Protein Trace H (Negative) Urine Glucose (UA) Negative (Negative) Urine Ketones 1+ H (Negative) Urine Blood Negative (Negative) Urine Nitrite Negative (Negative) Urine Bilirubin Negative (Negative) Urine Urobilinogen 2.0 (<2.0) mg/dL Ur Leukocyte Esterase Negative (Negative) Urine Opiates Screen Not Detected (NotDetected) Ur Oxycodone Screen Not Detected (NotDetected) Urine Methadone Screen Not Detected (NotDetected) Ur Propoxyphene Screen Not Detected (NotDetected) Ur Barbiturates Screen Not Detected (NotDetected) U Tricyclic Antidepress Not Detected (NotDetected) Ur Phencyclidine Scrn Not Detected (NotDetected) Ur Amphetamines Screen Detected H (NotDetected) U Methamphetamines Scrn Detected H (NotDetected) U Benzodiazepines Scrn Not Detected (NotDetected) Urine Cocaine Screen Not Detected (NotDetected) U Marijuana (THC) Screen Detected H (NotDetected) 09/04/20 09/04/20 09/04/20 Range/Units 12:43 12:43 12:43 WBC (3.8-10.6) k/uL RBC (4.30-5.90) m/uL Hgb (13.0-17.5) gm/dL Hct (39.0-53.0) % MCV (80.0-100.0) fL MCH (25.0-35.0) pg MCHC (31.0-37.0) g/dL RDW (11.5-15.5) % Plt Count (150-450) k/uL MPV Neutrophils % % Lymphocytes % % Monocytes % % Eosinophils % % Basophils % % Neutrophils # (1.3-7.7) k/uL Lymphocytes # (1.0-4.8) k/uL Monocytes # (0-1.0) k/uL Eosinophils # (0-0.7) k/uL Basophils # (0-0.2) k/uL PT (9.0-12.0) sec INR (<1.2) APTT (22.0-30.0) sec D-Dimer (<0.60) mg/L FEU Sodium 135 L (137-145) mmol/L Potassium 5.3 H (3.5-5.1) mmol/L Chloride 105 (98-107) mmol/L Carbon Dioxide 23 (22-30) mmol/L Anion Gap 7 mmol/L BUN 8 L (9-20) mg/dL Creatinine 0.90 (0.66-1.25) mg/dL Est GFR (CKD-EPI)AfAm >90 (>60 ml/min/1.73 sqM) Est GFR (CKD-EPI)NonAf >90 (>60 ml/min/1.73 sqM) Glucose 93 (74-99) mg/dL Calcium 9.8 (8.4-10.2) mg/dL Magnesium 2.1 (1.6-2.3) mg/dL Total Bilirubin 0.7 (0.2-1.3) mg/dL AST 34 (17-59) U/L ALT 43 (4-49) U/L Alkaline Phosphatase 155 H (38-126) U/L Creatine Kinase 94 (55-170) U/L Troponin I <0.012 (0.000-0.034) ng/mL NT-Pro-B Natriuret Pep 40 pg/mL Total Protein 7.3 (6.3-8.2) g/dL Albumin 4.5 (3.5-5.0) g/dL Lipase 27 (23-300) U/L Urine Color Urine Appearance (Clear) Urine pH (5.0-8.0) Ur Specific [place] (1.001-1.035) Urine Protein (Negative) Urine Glucose (UA) (Negative) Urine Ketones (Negative) Urine Blood (Negative) Urine Nitrite (Negative) Urine Bilirubin (Negative) Urine Urobilinogen (<2.0) mg/dL Ur Leukocyte Esterase (Negative) Urine Opiates Screen (NotDetected) Ur Oxycodone Screen (NotDetected) Urine Methadone Screen (NotDetected) Ur Propoxyphene Screen (NotDetected) Ur Barbiturates Screen (NotDetected) U Tricyclic Antidepress (NotDetected) Ur Phencyclidine Scrn (NotDetected) Ur Amphetamines Screen (NotDetected) U Methamphetamines Scrn (NotDetected) U Benzodiazepines Scrn (NotDetected) Urine Cocaine Screen (NotDetected) U Marijuana (THC) Screen (NotDetected) - EKG Data -: EKG Interpreted by Me EKG shows normal: sinus rhythm, axis, intervals, QRS complexes, ST-T waves Rate: normal EKG Comments: Sinus rhythm 92. Interval 148 QRS duration 96 QT since QTC 350/[address]- T wave changes - Radiology Data Radiology results: report reviewed (Image reviewed no acute findings.), image reviewed Disposition Clinical Impression: Non-cardiac chest pain, Adjustment disorder, Substance abuse Disposition: HOME SELF-CARE Condition: Good Instructions (If sedation given, give patient instructions): Noncardiac Chest Pain (ED), Methamphetamine Abuse (ED), Abuse of Alcohol (ED) Additional Instructions: Follow-up with her doctors as discussed. Is patient prescribed a controlled substance at d/c from ED?: No Referrals: None,Stated [Primary Care Provider] - 1-2 days
[2020-09-04] MEDS ORDERED: KETOROLAC 15 MG/ML 1 ML VIAL IVP STA (12:53)
[2020-09-04 13:04] LABS: Basophils % (A) 0 %; Eosinophils # (A) 0.1 k/uL (0-0.7); Eosinophils % (A) 1 %; HCT 43.5 % (39.0-53.0); Lymphocytes # (A) 1.6 k/uL (1.0-4.8); Lymphocytes % (A) 12 %; MCH 32.6 pg (25.0-35.0); MCHC 34.5 g/dL (31.0-37.0); MCV 94.5 fL (80.0-100.0); Mean Platelet Volume 8.6; Monocytes # (A) 0.6 k/uL (0-1.0); Monocytes % (A) 5 %; Neutrophils # (A) 10.5 k/uL (1.3-7.7); Neutrophils % (A) 81 %; Platelet Count 389 k/uL (150-450); RDW 13.2 % (11.5-15.5)
[2020-09-04 13:15] LABS: ALT 43 U/L (4-49); African American GFR (CKD) >90 (>60 ml/min/1.73 sqM); Albumin 4.5 g/dL (3.5-5.0); Anion Gap 7 mmol/L; Blood Urea Nitrogen 8 mg/dL (9-20); Calcium 9.8 mg/dL (8.4-10.2); Carbon Dioxide 23 mmol/L (22-30); Chloride 105 mmol/L (98-107); Creatine Kinase 94 U/L (55-170); Glucose 93 mg/dL (74-99); Lipase 27 U/L (23-300); Non-African American GFR(CKD) >90 (>60 ml/min/1.73 sqM); Sodium 135 mmol/L (137-145); Total Bilirubin 0.7 mg/dL (0.2-1.3); Total Protein 7.3 g/dL (6.3-8.2)
[2020-09-04 13:17] LABS: AST 34 U/L (17-59); Alkaline Phosphatase 155 U/L (38-126); Magnesium 2.1 mg/dL (1.6-2.3); Potassium 5.3 mmol/L (3.5-5.1)
[2020-09-04 13:21] LABS: D-Dimer 0.29 mg/L FEU (<0.60); INR 0.9 (<1.2); Partial Thromboplastin Time 22.8 sec (22.0-30.0); Prothrombin Time 10.2 sec (9.0-12.0)
--- NOTE | 2020-09-04 13:32 | XR ---
EXAMINATION TYPE: XR chest 2V DATE OF EXAM: 09/04/2020 COMPARISON: Chest x-ray 09/28/2019 HISTORY: Chest pain TECHNIQUE: Frontal and lateral views of the chest are obtained. FINDINGS: There is no focal air space opacity, pleural effusion, or pneumothorax seen. The cardiac silhouette size is within normal limits. The osseous structures are intact. IMPRESSION: No acute cardiopulmonary process.
== END 2020-09-04 15:21 | disposition home or self-care (01) ==
LOC: EC 11:16
DX: F19.10 Other psychoactive substance abuse, uncomplicated (principal); F43.20 Adjustment disorder, unspecified; R07.89 Other chest pain; E78.00 Pure hypercholesterolemia, unspecified; E78.5 Hyperlipidemia, unspecified; F17.200 Nicotine dependence, unspecified, uncomplicated; F41.9 Anxiety disorder, unspecified; F32.9 Major depressive disorder, single episode, unspecified
CPT/HCPCS: 82075; 36415; 93005; 85379; 83880; 80053; 82550; 83690; 83735; 84484; 85025; 85610; 85730; 81003; 80306; 71046; 99285; 96374; J1885

== ENCOUNTER → 2021-05-21 | Outpatient (CLI) | payer OTHER ==
--- NOTE | 2021-05-21 09:24 | US ---
EXAMINATION TYPE: US abdomen complete DATE OF EXAM: 05/21/2021 COMPARISON: NONE CLINICAL HISTORY: R74.01 elevation of liver levels. Elevated transaminase; Patient stated takes 8 typ es medication for high cholesterol and psychiatric diagnoses. EXAM MEASUREMENTS: Liver Length: 16.1 cm Gallbladder Wall: 0.2 cm CBD: 0.5 cm Spleen: 9.2 cm Right Kidney: 10.7 x 5.6 x 5.0 cm Left Kidney: 10.5 x 5.8 x 5.5 cm Pancreas: hyperechoic; tail obscured by overlying bowel gas Liver: attenuated posteriorly and is hyperechoic to right renal cortex which suggests fatty liver. Gallbladder: wnl Evidence for sonographic Watts's sign: no CBD: wnl Spleen: wnl Right Kidney: No hydronephrosis or masses seen Left Kidney: No hydronephrosis or masses seen Upper IVC: wnl Abd Aorta: wnl IMPRESSION: 1. Nonspecific pattern to the liver can be seen with hepatic steatosis or hepatocellular disease nelli elate clinically.
== END | disposition home or self-care (01) ==
LOC: RADUSWWP 07:36
PROVIDERS: ATTEND Internal Medicine
DX: K76.0 Fatty (change of) liver, not elsewhere classified (principal)
CPT/HCPCS: 76700

== ENCOUNTER 2023-06-23 10:05 | Emergency (ER) | payer OTHER ==
[2023-06-23 10:26] VITALS: RESP 18
--- NOTE | 2023-06-23 10:40 | ED ---
Extremity Problem HPI - General Chief complaint: Extremity Problem,Nontraumatic Stated complaint: Elbow pain/Swelling Time Seen by Provider: 06/23/23 10:38 Source: patient Mode of arrival: ambulatory Limitations: no limitations - History of Present Illness Initial comments: The patient is a 47-year-old gentleman with a remote history of substance abuse including methamphetamine and Imitrex he presents emergency room with complaints of right posterior elbow pain that started 2 days ago. 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 He states the pain is worse when he pulse down objects at work however he denies any sudden onset of pain or popping. The swelling is worse over the posterior aspect of the elbow in the distal humerus region. He denies any ascending redness warmth or fevers. Denies any IV drug use. Pain is worse with certain movements. - Related Data Home Medications Medication Instructions Recorded Confirmed Multivitamins, Thera [Multivitamin 1 tab PO DAILY 09/04/20 09/04/20 (formulary)] Previous Rx's Medication Instructions Recorded Acetaminophen Tab [Tylenol] 650 mg PO Q4HR PRN tab 08/28/20 DULoxetine HCL [Cymbalta] 60 mg PO DAILY 30 Days capsule. 08/28/20 Folic Acid 1 mg PO DAILY 30 Days tab 08/28/20 Nicotine 14Mg/24Hr Patch [Habitrol] 1 patch TRANSDERM DAILY 14 Days 08/28/20 patch Thiamine [Vitamin B-1] 100 mg PO DAILY 30 Days tab 08/28/20 hydrOXYzine pamoate [Vistaril] 25 mg PO BID PRN 30 Days cap 08/28/20 risperiDONE [RisperDAL] 1 mg PO HS 30 Days tab 08/28/20 Ketorolac [Toradol] 10 mg PO Q8HR #15 tab 06/23/23 Lidocaine 5% Patch [Lidoderm] 1 each TP DAILY #12 patch 06/23/23 Allergies Allergy/AdvReac Type Severity Reaction Status Date / Time lamotrigine [From Lamictal] AdvReac Itching Verified 06/23/23 10:21 Review of Systems ROS Statement: Those systems with pertinent positive or pertinent negative responses have been documented in the HPI. ROS Other: All systems not noted in ROS Statement are negative. Past Medical History Past Medical History: Hyperlipidemia Additional Past Medical History / Comment(s): arthritis, History of Any Multi-Drug Resistant Organisms: None Reported Additional Past Surgical History / Comment(s): corrective srugery to mouth and throat as a child, Past Anesthesia/Blood Transfusion Reactions: No Reported Reaction Past Psychological History: Anxiety, Depression, PTSD Smoking Status: Current every day smoker Past Alcohol Use History: Abuse, Heavy Past Drug Use History: Cocaine, Marijuana, Methamphetamine General Exam - General Exam Comments Initial Comments: Visual Physical Exam Vital signs reviewed General: Well-appearing, nontoxic, no acute distress. Head: Normocephalic, atraumatic Eyes: PERRLA, EOMI ENT: Airway patent Chest: Nonlabored breathing Skin: No visual rash, normal skin tone Neuro: Alert and oriented 3 Musculoskeletal: Posterior right elbow pain worsened. The distal humerus without any obvious erythema or warmth. No abscess formation. Since. Pain is worse with flexion. Neurologically intact Limitations: no limitations General appearance: alert Head exam: Present: atraumatic, normocephalic Eye exam: Present: normal appearance ENT exam: Present: normal exam, normal oropharynx Neck exam: Present: full ROM Respiratory exam: Present: normal lung sounds bilaterally Cardiovascular Exam: Present: regular rate, normal rhythm Extremities exam: Present: tenderness (pain over distal humerus. pain with R elbow flexion. no pain with pronation or supination.), joint swelling (swelling over distal right humerus without erythema or warmth. no abscess. no cellulitis. no obvious signs fo septic joint. palpable distal pulses), other (palpable distal pulses. compartments are soft.) Back exam: Present: full ROM Neurological exam: Present: alert, oriented X3 Skin exam: Present: warm, dry, intact Course Vital Signs 06/23/23 06/23/23 06/23/23 10:19 13:38 14:46 Temperature 98 F 98.1 F 97.8 F Pulse Rate 99 87 81 Respiratory 18 18 18 Rate Blood Pressure 156/100 145/87 139/87 O2 Sat by Pulse 95 97 96 Oximetry - Reevaluation(s) Reevaluation #1: 06/23/23 14:36 Discussed patient's lab and imaging results with him including the effusion on the elbow x-ray. Ultrasound negative for any DVT. Patient shows mild inflammatory changes without any obvious signs of infection however I did discuss the patient is to return to the emergency room for any worsening redness warmth, development of fevers or new concerning symptoms. Discussed following up with strategic planning specialist, compression and ice as well. Recommended decreased activity in this extremity if possible. Medical Decision Making - Medical Decision Making Quick note portion completed by myself, electronically signed ALLEN Vazquez. Was pt. sent in by a medical professional or institution ([facility], AIRCRAFT POWERPLANT REPAIRER, urgent care, hospital, or correction...) When possible be specific @ -[No] Did you speak to anyone other than the patient for history (EMS, parent, family, police, friend...)? What history was obtained from this source @ -[No] Did you review nursing and triage notes (agree or disagree)? Why? @ -[I reviewed and agree with nursing and triage notes] Were old charts reviewed (outside hosp., previous admission, EMS record, old EKG, old radiological studies, urgent care reports/EKG's, correction records)? Report findings @ -Yes old charts were reviewed including history of diabetes Differential Diagnosis (chest pain, altered mental status, abdominal pain women, abdominal pain men, vaginal bleeding, weakness, fever, dyspnea, syncope, headache, dizziness, GI bleed, back pain, seizure, CVA, palpatations, mental health, musculoskeletal)? @ -Bursitis, Arthritis, tendinitis, septic joint, fractured elbow EKG interpreted by me (3pts min.). @ -[As above] X-rays interpreted by me (1pt min.). @ -SHOWED effusion of the elbow without any obvious fracture or dislocation. CT interpreted by me (1pt min.). @ -[None done] U/S interpreted by me (1pt. min.). @ -Ultrasound showed the elbow effusions without any DVT What testing was considered but not performed or refused? (CT, X-rays, U/S, labs)? Why? @ -[None] What meds were considered but not given or refused? Why? @ -[None] Did you discuss the management of the patient with other professionals (professionals i.e. [facility], AIRCRAFT POWERPLANT REPAIRER, lab, RT, psych nurse, older adult social work specialist, welding machine assembler, teacher, chief environmental commitment officer, bilingual case manager)? Give summary @ -[No] Was smoking cessation discussed for >3mins.? @ -[No] Was critical care preformed (if so, how long)? @ -[No] Were there social determinants of health that impacted care today? How? (Homelessness, low income, unemployed, alcoholism, drug addiction, transportation, low edu. Level, literacy, decrease access to med. care, custodial, rehab)? @ -[No] Was there de-escalation of care discussed even if they declined (Discuss DNR or withdrawal of care, Hospice)? DNR status @ -[No] What co-morbidities impacted this encounter? (DM, HTN, Smoking, COPD, CAD, Cancer, CVA, ARF, Chemo, Hep., AIDS, mental health diagnosis, sleep apnea, morbid obesity)? @ -[No history of substance abuse] Was patient admitted / discharged? Hospital course, mention meds given and route, prescriptions, significant lab abnormalities, going to OR and other pertinent info. @ -Patient stable to follow up as an outpatient. He has no significant signs of a septic joint on the labs or imaging studies. The has no erythema or warmth in the elbow joint and compartments are soft. He is stable to follow up as an outpatient with PCP or ortho. Undiagnosed new problem with uncertain prognosis? @ -[No] Drug Therapy requiring intensive monitoring for toxicity (Heparin, Nitro, Insulin, Cardizem)? @ -[No] Were any procedures done? @ -[No] Diagnosis/symptom? @ -[Right elbow tendonitis Acute, or Chronic, or Acute on Chronic? @ Acute Uncomplicated (without systemic symptoms) or Complicated (systemic symptoms)? @ -[default] Side effects of treatment? @ -[No] Exacerbation, Progression, or Severe Exacerbation? @ -[No] Poses a threat to life or bodily function? How? (Chest pain, [place], [place], pneumonia, PE, COPD, DKA, ARF, appy, cholecystitis, CVA, Diverticulitis, Homicidal, Suicidal, threat to staff... and all critical care pts) @ -[No] - Lab Data Result diagrams: 06/23/23 11:34 06/23/23 11:34 Lab Results 06/23/23 06/23/23 Range/Units 11:34 11:34 WBC 12.5 H (3.8-10.6) k/uL RBC 4.43 (4.30-5.90) m/uL Hgb 15.2 (13.0-17.5) gm/dL Hct 44.9 (39.0-53.0) % MCV 101.3 H (80.0-100.0) fL MCH 34.3 (25.0-35.0) pg MCHC 33.9 (31.0-37.0) g/dL RDW 12.6 (11.5-15.5) % Plt Count 365 (150-450) k/uL MPV 7.9 Neutrophils % 78 % Lymphocytes % 12 % Monocytes % 5 % Eosinophils % 3 % Basophils % 0 % Neutrophils # 9.7 H (1.3-7.7) k/uL Lymphocytes # 1.4 (1.0-4.8) k/uL Monocytes # 0.7 (0-1.0) k/uL Eosinophils # 0.3 (0-0.7) k/uL Basophils # 0.1 (0-0.2) k/uL ESR 41 H (0-15) mm/Hr Sodium 135 L (137-145) mmol/L Potassium 5.0 (3.5-5.1) mmol/L Chloride 104 (98-107) mmol/L Carbon Dioxide 24 (22-30) mmol/L Anion Gap 7 mmol/L BUN 9 (9-20) mg/dL Creatinine 0.71 (0.66-1.25) mg/dL Est GFR (CKD-EPI)AfAm >90 (>60 ml/min/1.73 sqM) Est GFR (CKD-EPI)NonAf >90 (>60 ml/min/1.73 sqM) Glucose 113 H (74-99) mg/dL Calcium 9.6 (8.4-10.2) mg/dL Total Bilirubin 0.6 (0.2-1.3) mg/dL AST 72 H (17-59) U/L ALT 83 H (4-49) U/L Alkaline Phosphatase 196 H (38-126) U/L C-Reactive Protein 4.0 H (<1.0) mg/dL Total Protein 7.2 (6.3-8.2) g/dL Albumin 4.1 (3.5-5.0) g/dL - Radiology Data Radiology results: report reviewed, image reviewed Disposition Clinical Impression: Tendonitis of elbow, right Disposition: HOME SELF-CARE Condition: Fair Instructions (If sedation given, give patient instructions): Tendinitis (ED), P.R.I.C.E. Treatment (ED) Prescriptions: Lidocaine 5% Patch [Lidoderm] 1 each TP DAILY #12 patch Ketorolac [Toradol] 10 mg PO Q8HR #15 tab Is patient prescribed a controlled substance at d/c from ED?: No If prescribed controlled substance>3 days was MAPS reviewed?: No Referrals: None,Stated [Primary Care Provider] - 1-2 days Time of Disposition: 14:39
--- NOTE | 2023-06-23 11:16 | XR ---
EXAMINATION TYPE: XR elbow complete RT DATE OF EXAM: 06/23/2023 COMPARISON: NONE HISTORY: Pain FINDINGS: Three views of the elbow demonstrate pathologic displacement anterior and posterior fat pads compatib le joint effusion. There is an olecranon spur.. The osseous structures are intact. There is no acut e fracture or dislocation. IMPRESSION: 1. There is a pathologic joint effusion. This could be on the basis of postinflammatory\post arthriti c or occult fracture. Correlate clinically.
[2023-06-23 11:48] LABS: Basophils # (A) 0.1 k/uL (0-0.2); Basophils % (A) 0 %; Eosinophils # (A) 0.3 k/uL (0-0.7); Eosinophils % (A) 3 %; HCT 44.9 % (39.0-53.0); HGB 15.2 gm/dL (13.0-17.5); Lymphocytes # (A) 1.4 k/uL (1.0-4.8); Lymphocytes % (A) 12 %; MCH 34.3 pg (25.0-35.0); MCHC 33.9 g/dL (31.0-37.0); MCV 101.3 fL (80.0-100.0); Mean Platelet Volume 7.9; Monocytes # (A) 0.7 k/uL (0-1.0); Monocytes % (A) 5 %; Neutrophils # (A) 9.7 k/uL (1.3-7.7); Neutrophils % (A) 78 %; Platelet Count 365 k/uL (150-450); RBC 4.43 m/uL (4.30-5.90); RDW 12.6 % (11.5-15.5); WBC 12.5 k/uL (3.8-10.6)
[2023-06-23 12:53] LABS: ALT 83 U/L (4-49); AST 72 U/L (17-59); African American GFR (CKD) >90 (>60 ml/min/1.73 sqM); Albumin 4.1 g/dL (3.5-5.0); Alkaline Phosphatase 196 U/L (38-126); Anion Gap 7 mmol/L; Blood Urea Nitrogen 9 mg/dL (9-20); Calcium 9.6 mg/dL (8.4-10.2); Carbon Dioxide 24 mmol/L (22-30); Chloride 104 mmol/L (98-107); Glucose 113 mg/dL (74-99); Non-African American GFR(CKD) >90 (>60 ml/min/1.73 sqM); Sodium 135 mmol/L (137-145); Total Bilirubin 0.6 mg/dL (0.2-1.3); Total Protein 7.2 g/dL (6.3-8.2)
--- NOTE | 2023-06-23 13:31 | US ---
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 There is normal flow, compressibility and vascular waveforms.
[2023-06-23 14:59] VITALS: BP 139/87; PULSE 81; TEMP 97.8
[2023-06-23 15:46] LABS: Erythrocyte Sedimentation Rate 41 mm/Hr (0-15)
== END 2023-06-23 14:48 | disposition home or self-care (01) ==
LOC: EC 10:05
DX: M67.823 Other specified disorders of tendon, right elbow (principal); M25.421 Effusion, right elbow; F17.200 Nicotine dependence, unspecified, uncomplicated; F14.90 Cocaine use, unspecified, uncomplicated; F12.90 Cannabis use, unspecified, uncomplicated; F15.90 Other stimulant use, unspecified, uncomplicated; Z88.8 Allergy status to other drugs, medicaments and biological substances
CPT/HCPCS: 36415; 80053; 85025; 85652; 86140; 99284

== ENCOUNTER 2023-07-04 14:58 | Emergency (ER) | payer OTHER ==
[2023-07-04 15:33] VITALS: TEMP 99.9
[2023-07-04 17:03] LABS: Basophils # (A) 0.1 k/uL (0-0.2); Basophils % (A) 1 %; Eosinophils # (A) 0.4 k/uL (0-0.7); Eosinophils % (A) 4 %; HCT 45.7 % (39.0-53.0); HGB 15.7 gm/dL (13.0-17.5); Lymphocytes # (A) 1.4 k/uL (1.0-4.8); Lymphocytes % (A) 12 %; MCH 34.6 pg (25.0-35.0); MCHC 34.4 g/dL (31.0-37.0); MCV 100.5 fL (80.0-100.0); Mean Platelet Volume 7.6; Monocytes # (A) 0.6 k/uL (0-1.0); Monocytes % (A) 5 %; Neutrophils # (A) 9.1 k/uL (1.3-7.7); Neutrophils % (A) 78 %; Platelet Count 505 k/uL (150-450); RBC 4.55 m/uL (4.30-5.90); RDW 12.2 % (11.5-15.5); WBC 11.7 k/uL (3.8-10.6)
[2023-07-04 17:04] LABS: Appearance,Urine Clear (Clear); Bilirubin,Urine Negative (Negative); Blood,Urine Negative (Negative); Color,Urine Yellow; Glucose,Urine (UA) Negative (Negative); Ketones,Urine Negative (Negative); Leukocyte Esterase,Urine Negative (Negative); Nitrite,Urine Negative (Negative); Protein,Urine Negative (Negative); Specific Gravity,Urine 1.018 (1.001-1.035); Urobilinogen,Urine <2.0 mg/dL (<2.0)
[2023-07-04 17:13] LABS: ALT 52 U/L (4-49); AST 38 U/L (17-59); African American GFR (CKD) >90 (>60 ml/min/1.73 sqM); Albumin 4.3 g/dL (3.5-5.0); Alkaline Phosphatase 199 U/L (38-126); Anion Gap 7 mmol/L; Blood Urea Nitrogen 12 mg/dL (9-20); Carbon Dioxide 24 mmol/L (22-30); Chloride 103 mmol/L (98-107); Glucose 101 mg/dL (74-99); Non-African American GFR(CKD) >90 (>60 ml/min/1.73 sqM); Potassium 4.8 mmol/L (3.5-5.1); Sodium 134 mmol/L (137-145); Total Bilirubin 0.7 mg/dL (0.2-1.3); Total Protein 7.6 g/dL (6.3-8.2)
[2023-07-04 17:15] LABS: INR 0.9 (<1.2); Prothrombin Time 9.8 sec (10.0-12.5)
--- NOTE | 2023-07-04 17:59 | XR ---
EXAMINATION TYPE: XR chest 2V DATE OF EXAM: 07/04/2023 5:55 PM CLINICAL INDICATION:Male, 48 years old with history of r/o mass; [facility] COMPARISON: Chest radiographs from 09/04/2020 TECHNIQUE: XR chest 2V Frontal and lateral views of the chest. FINDINGS: Lungs/Pleura: There is no evidence of pleural effusion, focal consolidation, or pneumothorax. Pulmonary vascularity: Unremarkable. Heart/mediastinum: Cardiomediastinal silhouette is unremarkable. Musculoskeletal: No acute osseous pathology. IMPRESSION: No acute cardiopulmonary disease/process.
--- NOTE | 2023-07-04 18:07 | CT ---
EXAMINATION TYPE: CT angio upper extremity LT CT DLP: 263.6 mGycm, Automated exposure control for dose reduction was used. DATE OF EXAM: 07/04/2023 5:53 PM COMPARISON: INDICATION: Patient age:Male; 48 years old; Reason for study: discoloration of bilateral fingertips worse; PHH. COMPARISON: No. TECHNIQUE: Multiple thin slice sub-millimeter images were obtained through the left upper extremity a fter administration of contrast. Patient was given Isovue 350, 100 cc intravenously. 3-D reconstruc leatha images and maximum intensity projection images were obtained. One or more CT dose reduction strat egies were utilized during this examination. Total DLP administered 234 mGycm. FINDINGS: The left subclavian artery, left axillary artery, left brachial artery, are intact. The radial artery can be seen crossing the wrist joint and extending into the palmar arches. The ulnar artery is sligh tly diminished in appearance with contrast seen extending through the wrist joint. Multifocal areas o f narrowing are present distally There is no CT evidence to suggest vascular injury. The great vessels do have a normal appearance. A soft tissue edema can be seen along the ulnar aspect Osseous structures are grossly intact. IMPRESSION 1. No evidence of large vessel occlusion. 2. Multifocal areas of narrowing of the distal ulnar artery crossing the wrist joint. Findings may r elate to combination of contrast bolus timing as well as atherosclerotic disease. Consider dedicated ultrasound for further evaluation 3. Mild soft tissue edema along the lateral forearm.
--- NOTE | 2023-07-04 18:42 | US ---
EXAMINATION TYPE: US arterial UE multi level DATE OF EXAM: 07/04/2023 6:33 PM CLINICAL INDICATION: Male, 48 years old with history of RUE cyanosis of fingers; Discoloration, numbn ess left index finger History of: Smoker: current Hypertension: no Diabetic: no Hyperlipidemia: no TIA/CVA: no Previous Vascular Surgery: no MA: no Vascular Ulcers: no Numbness: left index finger Doppler Waveforms: Waveforms are monophasic throughout the bilateral hands. Triphasic waveforms are within the brachial arteries radial ulnar arteries. Ratios are within normal limits. Wrist Brachial Indices: Right: 0.95 Left: 0.99 IMPRESSION: No suspicious stenosis upper extremity arterial system
--- NOTE | 2023-07-04 19:56 | ED ---
General Adult HPI - General Chief complaint: Extremity Injury, Lower Stated complaint: L finger no circulation Time Seen by Provider: 07/04/23 16:02 Source: patient Mode of arrival: ambulatory Limitations: no limitations - History of Present Illness Initial comments: 48-year-old male with a past medical history significant for tobacco use presenting to the ED with a chief complaint of discoloration to his fingers. Patient states for the past week and a half has had some discoloration to his fingertips especially his left second finger. 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 States symptoms are often provoked by going into the cold which point patient reports that his finger turned purple. Denies chest pain or shortness of breath. Denies fever or chills. No other complaints. - Related Data Home Medications Medication Instructions Recorded Confirmed Multivitamins, Thera [Multivitamin 1 tab PO DAILY 09/04/20 09/04/20 (formulary)] Previous Rx's Medication Instructions Recorded Acetaminophen Tab [Tylenol] 650 mg PO Q4HR PRN tab 08/28/20 DULoxetine HCL [Cymbalta] 60 mg PO DAILY 30 Days capsule. 08/28/20 Folic Acid 1 mg PO DAILY 30 Days tab 08/28/20 Nicotine 14Mg/24Hr Patch [Habitrol] 1 patch TRANSDERM DAILY 14 Days 08/28/20 patch Thiamine [Vitamin B-1] 100 mg PO DAILY 30 Days tab 08/28/20 hydrOXYzine pamoate [Vistaril] 25 mg PO BID PRN 30 Days cap 08/28/20 risperiDONE [RisperDAL] 1 mg PO HS 30 Days tab 08/28/20 Ketorolac [Toradol] 10 mg PO Q8HR #15 tab 06/23/23 Lidocaine 5% Patch [Lidoderm] 1 each TP DAILY #12 patch 06/23/23 Aspirin 81 mg PO DAILY #60 tab 07/04/23 Allergies Allergy/AdvReac Type Severity Reaction Status Date / Time lamotrigine [From Lamictal] AdvReac Itching Verified 07/04/23 15:20 Review of Systems ROS Statement: Those systems with pertinent positive or pertinent negative responses have been documented in the HPI. ROS Other: All systems not noted in ROS Statement are negative. Past Medical History Past Medical History: Hyperlipidemia Additional Past Medical History / Comment(s): arthritis, History of Any Multi-Drug Resistant Organisms: None Reported Additional Past Surgical History / Comment(s): corrective srugery to mouth and throat as a child, Past Anesthesia/Blood Transfusion Reactions: No Reported Reaction Past Psychological History: Anxiety, Depression, PTSD Smoking Status: Current every day smoker Past Alcohol Use History: Abuse, Heavy Past Drug Use History: Cocaine, Marijuana, Methamphetamine General Exam Limitations: no limitations General appearance: alert, in no apparent distress Respiratory exam: Present: normal lung sounds bilaterally Cardiovascular Exam: Present: regular rate Extremities exam: Present: other (Distal tip of left second finger does appear somewhat cooler compared to the rest of his fingers. Capillary refill present. Good strength and sensation. Radial pulses 2+.) Neurological exam: Present: alert, oriented X3 Skin exam: Present: warm, dry Course Vital Signs 07/04/23 15:16 Temperature 99.9 F H Pulse Rate 96 Respiratory 16 Rate Blood Pressure 151/95 O2 Sat by Pulse 97 Oximetry Medical Decision Making - Medical Decision Making Was pt. sent in by a medical professional or institution (, PA, RETAIL PHARMACY MANAGER, urgent care, hospital, or [place] health care facility...) When possible be specific @ -No Did you speak to anyone other than the patient for history (EMS, parent, family, police, friend...)? What history was obtained from this source @ -No Did you review nursing and triage notes (agree or disagree)? Why? @ -I reviewed and agree with nursing and triage notes Were old charts reviewed (outside hosp., previous admission, EMS record, old EKG, old radiological studies, urgent care reports/EKG's, [place] health care facility records)? Report findings @ -No old charts were reviewed Differential Diagnosis (chest pain, altered mental status, abdominal pain women, abdominal pain men, vaginal bleeding, weakness, fever, dyspnea, syncope, headache, dizziness, GI bleed, back pain, seizure, CVA, palpatations, mental health, musculoskeletal)? @ -Differential Musculoskeletal Muscular strain, contusion, ligament sprain, fracture, arthritis, septic arthritis, bursitis, cellulitis, muscle spasm, nerve compression, DVT, arterial occlusion, herpes zoster, electrolyte abnormality, tumor.... This is not meant to be in all inclusive list EKG interpreted by me (3pts min.). @ -None X-rays interpreted by me (1pt min.). @ -None done CT interpreted by me (1pt min.). @ -CT of the upper extremity interpreted by me showing multifocal areas of narrowing of the distal ulnar artery crossing at the wrist joint. These findings may relate to a combination of contrast bolus timing as well as atherosclerotic disease. Advised to consider dedicated ultrasound. U/S interpreted by me (1pt. min.). @ -ultrasound interpreted by me showing no suspicious stenosis of the upper extremity arterial system. What testing was considered but not performed or refused? (CT, X-rays, U/S, labs)? Why? @ -None What meds were considered but not given or refused? Why? @ -None Did you discuss the management of the patient with other professionals (professionals i.e. , PA, RETAIL PHARMACY MANAGER, lab, RT, psych nurse, rn social services, wind tunnel mechanic, teacher, precinct commanding officer, egg caser)? Give summary @ -Case discussed with Dr. Calvillo who at this time recommend demand starting aspirin and outpatient follow-up with himself. No other recommendations for workup at this time. Was smoking cessation discussed for >3mins.? @ -No Was critical care preformed (if so, how long)? @ -No Were there social determinants of health that impacted care today? How? (Homelessness, low income, unemployed, alcoholism, drug addiction, transportation, low edu. Level, literacy, decrease access to med. care, intermediate, rehab)? @ -No Was there de-escalation of care discussed even if they declined (Discuss DNR or withdrawal of care, Hospice)? DNR status @ -No What co-morbidities impacted this encounter? (DM, HTN, Smoking, COPD, CAD, Cancer, CVA, ARF, Chemo, Hep., AIDS, mental health diagnosis, sleep apnea, morbid obesity)? @ -None Was patient admitted / discharged? Hospital course, mention meds given and route, prescriptions, significant lab abnormalities, going to OR and other pertinent info. @ -Discharge 48-year-old male presenting to the ED with intermittent discoloration to his fin gertips for the past week and a half especially his left second finger. Imaging studies unable to reveal any suspicious stenosis of the upper extremity arterial system. After discussion with Dr. Calvillo of vascular, recommended starting patient on aspirin and having him follow-up with him outpatient. At this time vital signs stable afebrile. Patient discharged home in stable condition. Discussed strict return precautions with patient who verbalized agreement. Undiagnosed new problem with uncertain prognosis? @ -No Drug Therapy requiring intensive monitoring for toxicity (Heparin, Nitro, Insulin, Cardizem)? @ -No Were any procedures done? @ -No Diagnosis/symptom? @ -Finger pain/discoloration Acute, or Chronic, or Acute on Chronic? @ -Acute Uncomplicated (without systemic symptoms) or Complicated (systemic symptoms)? @ -Uncomplicated Side effects of treatment? @ -No Exacerbation, Progression, or Severe Exacerbation? @ -No Poses a threat to life or bodily function? How? (Chest pain, USA, MS, pneumonia, PE, COPD, DKA, ARF, appy, cholecystitis, CVA, Diverticulitis, Homicidal, Suicidal, threat to staff... and all critical care pts) @ -No - Lab Data Result diagrams: 07/04/23 16:47 07/04/23 16:47 Lab Results 07/04/23 07/04/23 07/04/23 Range/Units 16:47 16:47 16:47 WBC 11.7 H (3.8-10.6) k/uL RBC 4.55 (4.30-5.90) m/uL Hgb 15.7 (13.0-17.5) gm/dL Hct 45.7 (39.0-53.0) % MCV 100.5 H (80.0-100.0) fL MCH 34.6 (25.0-35.0) pg MCHC 34.4 (31.0-37.0) g/dL RDW 12.2 (11.5-15.5) % Plt Count 505 H (150-450) k/uL MPV 7.6 Neutrophils % 78 % Lymphocytes % 12 % Monocytes % 5 % Eosinophils % 4 % Basophils % 1 % Neutrophils # 9.1 H (1.3-7.7) k/uL Lymphocytes # 1.4 (1.0-4.8) k/uL Monocytes # 0.6 (0-1.0) k/uL Eosinophils # 0.4 (0-0.7) k/uL Basophils # 0.1 (0-0.2) k/uL PT 9.8 L (10.0-12.5) sec INR 0.9 (<1.2) APTT 26.0 (22.0-30.0) sec Sodium (137-145) mmol/L Potassium (3.5-5.1) mmol/L Chloride (98-107) mmol/L Carbon Dioxide (22-30) mmol/L Anion Gap mmol/L BUN (9-20) mg/dL Creatinine (0.66-1.25) mg/dL Est GFR (CKD-EPI)AfAm (>60 ml/min/1.73 sqM) Est GFR (CKD-EPI)NonAf (>60 ml/min/1.73 sqM) Glucose (74-99) mg/dL Calcium (8.4-10.2) mg/dL Total Bilirubin (0.2-1.3) mg/dL AST (17-59) U/L ALT (4-49) U/L Alkaline Phosphatase (38-126) U/L Total Protein (6.3-8.2) g/dL Albumin (3.5-5.0) g/dL Urine Color Yellow Urine Appearance Clear (Clear) Urine pH 6.0 (5.0-8.0) Ur Specific [place]burn 1.018 (1.001-1.035) Urine Protein Negative (Negative) Urine Glucose (UA) Negative (Negative) Urine Ketones Negative (Negative) Urine Blood Negative (Negative) Urine Nitrite Negative (Negative) Urine Bilirubin Negative (Negative) Urine Urobilinogen <2.0 (<2.0) mg/dL Ur Leukocyte Esterase Negative (Negative) 07/04/23 Range/Units 16:47 WBC (3.8-10.6) k/uL RBC (4.30-5.90) m/uL Hgb (13.0-17.5) gm/dL Hct (39.0-53.0) % MCV (80.0-100.0) fL MCH (25.0-35.0) pg MCHC (31.0-37.0) g/dL RDW (11.5-15.5) % Plt Count (150-450) k/uL MPV Neutrophils % % Lymphocytes % % Monocytes % % Eosinophils % % Basophils % % Neutrophils # (1.3-7.7) k/uL Lymphocytes # (1.0-4.8) k/uL Monocytes # (0-1.0) k/uL Eosinophils # (0-0.7) k/uL Basophils # (0-0.2) k/uL PT (10.0-12.5) sec INR (<1.2) APTT (22.0-30.0) sec Sodium 134 L (137-145) mmol/L Potassium 4.8 (3.5-5.1) mmol/L Chloride 103 (98-107) mmol/L Carbon Dioxide 24 (22-30) mmol/L Anion Gap 7 mmol/L BUN 12 (9-20) mg/dL Creatinine 0.69 (0.66-1.25) mg/dL Est GFR (CKD-EPI)AfAm >90 (>60 ml/min/1.73 sqM) Est GFR (CKD-EPI)NonAf >90 (>60 ml/min/1.73 sqM) Glucose 101 H (74-99) mg/dL Calcium 10.0 (8.4-10.2) mg/dL Total Bilirubin 0.7 (0.2-1.3) mg/dL AST 38 (17-59) U/L ALT 52 H (4-49) U/L Alkaline Phosphatase 199 H (38-126) U/L Total Protein 7.6 (6.3-8.2) g/dL Albumin 4.3 (3.5-5.0) g/dL Urine Color Urine Appearance (Clear) Urine pH (5.0-8.0) Ur Specific [place] (1.001-1.035) Urine Protein (Negative) Urine Glucose (UA) (Negative) Urine Ketones (Negative) Urine Blood (Negative) Urine Nitrite (Negative) Urine Bilirubin (Negative) Urine Urobilinogen (<2.0) mg/dL Ur Leukocyte Esterase (Negative) Disposition Clinical Impression: Finger pain Disposition: HOME SELF-CARE Condition: Good Additional Instructions: Please return to the Emergency Department if symptoms worsen or any other concerns. Please follow-up with vascular surgery. Take the aspirin prescribed daily. Prescriptions: Aspirin 81 mg PO DAILY #60 tab Is patient prescribed a controlled substance at d/c from ED?: No Referrals: None,Stated [Primary Care Provider] - 1-2 days Time of Disposition: 20:03
[2023-07-04 20:29] VITALS: BP 170/111; PULSE 90; RESP 18
== END 2023-07-04 20:12 | disposition home or self-care (01) ==
LOC: EC 14:58
DX: M79.645 Pain in left finger(s) (principal); R23.8 Other skin changes; F17.200 Nicotine dependence, unspecified, uncomplicated; F12.90 Cannabis use, unspecified, uncomplicated; F14.90 Cocaine use, unspecified, uncomplicated; F15.90 Other stimulant use, unspecified, uncomplicated; Z88.8 Allergy status to other drugs, medicaments and biological substances
CPT/HCPCS: 36415; 80053; 85025; 85610; 85730; 81003; 71046; 93923; 73206; 99284; Q9967

== ENCOUNTER → 2023-08-26 | Outpatient (CLI) | payer OTHER ==
--- NOTE | 2023-08-26 20:43 | CT ---
EXAMINATION TYPE: CT chest w con DATE OF EXAM: 08/26/2023 COMPARISON: NONE HISTORY: fluid around the heart CT DLP: 517 mGycm. Automated Exposure Control for Dose Reduction was Utilized. TECHNIQUE: CT scan of the thorax is performed following with IV Contrast, patient injected with 100 m L of Isovue 300. FINDINGS: LUNGS: The airways are clear. There is no acute pulmonary process. PLEURAL SPACES: There is a [id number] right pleural effusion and a scant left pleural effusion. MEDIASTINUM: There is subtle smooth prominence of the pericardium circumferentially, measuring 3 mm t hickness, without pericardial effusion without pericardial calcifications. There is no cardiomegaly. The interventricular septum has normal morphology. Aorta is not dilated. Pulmonary arteries are not dilated. There are no greater than 1 cm short axis hilar or mediastinal lymph nodes. Thyroid and esophagus are unremarkable. OTHER: No additional significant abnormality is seen. IMPRESSION: Subtle circumferential pericardial prominence. Pleural effusions, greater on the right.
--- NOTE | 2023-08-27 04:33 | MR ---
MRI CERVICAL SPINE: CLINICAL HISTORY: No prior, bilateral hand numbness and swelling, no injury, no surgery, no CA. cervi landon radiculopathy. TECHNIQUE: Multiplanar, multisequence imaging of the cervical spine is performed without IV contrast. COMPARISON: None. FINDINGS: Sagittal images of the cervical spine show the craniocervical junction to appear within nor mal limits. The cervical and upper thoracic spinal cord is normal in course, caliber, and signal. Sl ight grade 1 retrolisthesis C3 on C4. The vertebral body and intravertebral disk heights are normal. The bone marrow signal intensity is within normal limits. Axial images show C2-C3 level to appear within normal limits. Axial images at C3-C4 level show uncovertebral facet degenerative changes bilaterally with spondyloli sthesis and broad-based left paracentral disc protrusion minimally effacing the anterior thecal sac a nd causing moderate bilateral neural foraminal narrowing. Axial images at C4-C5 level show uncovertebral facet degenerative change and left foraminal disc prot rusion causing asymmetric [id number] left-sided neural foraminal narrowing. Axial images at C5-C6 level uncovertebral facet degenerative changes bilaterally causing mild bilater al neural foraminal narrowing. Axial images at C6-C7 and C7-T1 levels appear within normal limits. IMPRESSION: Mild multilevel degenerative changes most prominently at C3-C4 level as detailed above.
== END | disposition home or self-care (01) ==
LOC: RADMRIMAIN 15:56
PROVIDERS: ATTEND Internal Medicine Rheumatology
DX: M47.812 Spondylosis without myelopathy or radiculopathy, cervical region (principal); J90 Pleural effusion, not elsewhere classified; F17.210 Nicotine dependence, cigarettes, uncomplicated
CPT/HCPCS: 71260; 72141; Q9967

== ENCOUNTER → 2023-10-11 | Outpatient (CLI) | payer OTHER ==
[2023-10-12 11:42] LABS: Alt. alternata IgE Class CLASS 0; Alternaria alternata IgE <0.10 kU/L (<0.10); Asperg. fumagatus IgE <0.10 kU/L (<0.10); Asperg. fumagatus IgE Class CLASS 0; Candida albicans IgE Class CLASS 0; Clad herbarum IgE <0.10 kU/L (<0.10); Clad herbarum IgE Class CLASS 0; Mucor racemosus IgE <0.10 kU/L (<0.10); Mucor racemosus IgE Class CLASS 0; Penicillium chrysogenum IgE <0.10 kU/L (<0.10); Penicillium chrysogenum IgE Cl CLASS 0
== END | disposition home or self-care (01) ==
LOC: LABWHC1 13:26
PROVIDERS: ATTEND Family Medicine
DX: M25.40 Effusion, unspecified joint (principal); R20.2 Paresthesia of skin
CPT/HCPCS: 36415; 86003; 86480

== ENCOUNTER → 2023-12-02 | Outpatient (CLI) | payer OTHER ==
--- NOTE | 2023-12-02 12:45 | P.PAINPG ---
PQRS Measure Charge Sheet Comment: HISTORY OF PRESENT ILLNESS: A 48 yr old male as a referral from Vidhya BERRY presents today w severe and chronic neck pain secondary to DDD, spondylosis and facet arthropathy without myelopathy for evaluation. Pt states pain level is provoked at 7 /10 in intensity, constant, localized in the cervical spine, predominantly axial, burning in character w occasional shooting pain towards the BL shoulders. Pain is provoked by hyperextension. Pain is alleviated by PT x 6 wks which ended in 2020, physician guided home exercises every morning since 2020, repositioning and rest . Cervical disability score at 23. PMH: OA, Hyperlipidemia, MDD/ Anxiety/ PTSD PSH: Childhood mouth/ throat surgery SH: Daily tobacco use, Hx of ETOH abuse, Hx of Cocaine/ Methamphetamine Abuse, Cannabis use FH: Non contributory All: See list Meds: See list REVIEW OF ORGAN SYSTEMS: CONSTITUTIONAL: No fevers or chills. No recent weight loss. NEUROLOGICAL: + numbness and tingling along the distal extremities. No seizure disorders or headaches. MUSCULOSKELETAL: + pain PSYCHIATRIC: Denies current depression or suicidal thoughts. Physical Examinations : Constitutional : Cooperative , not in acute distress . Neurologic : Cranial nerve II to XII intact. No focal neurological deficits. Psychiatric : alert & oriented x 3. Matching mood & appropriate affect. Judgment & insight intact. Musculoskeletal : Cervical Spine Motor strength in the deltoid and biceps: Normal right side. Normal Left side Motor strength biceps and the wrist extensors: Normal right side . Normal left side Motor strength in the triceps muscle: Normal right side. Normal left side Deep tendon reflexes: Normal at the biceps. Normal at Brachioradialis. Normal at triceps Vertebral body tenderness to deep palpation over Cervical facet loading test: positive bilaterally C4-C5, C5-C6 Spurling test: positive bilaterally Neck distraction test: positive bilaterally Johnnie sign: positive bilaterally Lumbar spine Motor strength lower extremities ,thigh and legs 5/5 Right side , 5/5 Left side Deep tendon reflexes : Normal Knee Jerk. Normal Ankle Jerk Vertebral body tenderness over Escalante Test positive Lumbar facet Loading Test: positive Right / positive Left Range of motion of the lumbar spine Flexion 30 degrees, extension 10 degrees Straight Leg Raise test: Left/ Right positive at degrees Anderson test: positive right / positive left. Severe tenderness over the Sacroiliac joint on the Right / Left sides Gaenslen test: positive bilaterally Seated flexion test: positive bilaterally. Sacral spine : Severe tenderness over the Sacroiliac joint: right side / left side Range of motion: Flexion of the lumbar spine <60 degrees Range of motion: Extension of the lumbar spine <20 degrees Gaenslen's Test positive Anderson test: positive right side / left side Thigh Thrust Test Sacral Thrust Test Imaging: MRI cervical spine from 08/26/23 reviewed Assessment/ Plan : Cervical DDD Recommendation of BL MBB C4-C6 #1. May need a series of injections, up until RFA, for optimal pain relief. Risks, benefits of procedure discussed and patient verbalized understanding. Admits to anti- coagulant use or medical history of diabetes. Protocol for discontinuation/ continuation of medications evelyn procedure discussed. Minimal anesthesia provided, if clinically indicated, consisting of Versed and Fentanyl. All questions answered. I have spent greater than 30 minutes on patient care today. Dr Lee was available by phone for the evaluation of this patient. The time was used to review the medical records including relevant urine studies and Prescription history (MAPs), review of the available imaging, evaluation and examination of the patient, coordination of care with the medical staff and if applicable referring physicians, as well as creation of the medical record PQRS Narrative: Smoking Status Current every day smoker Home Medications: Ambulatory Orders Colchicine [Colcrys] 0.6 mg PO BID 12/02/23 Indomethacin [Indocin] 50 mg PO BID 12/02/23 Pantoprazole [Protonix] 40 mg PO DAILY 12/02/23 Rosuvastatin Calcium [Crestor] 5 mg PO DAILY 12/02/23 amLODIPine [Norvasc] 5 mg PO DAILY 12/02/23 Controlled Substance Measures - Controlled Substance Measures Is patient prescribed a controlled substance at discharge?: No
[2023-12-02 13:37] VITALS: BP 125/87; PULSE 87; RESP 16
== END ==
LOC: PNWHC3 11:45
PROVIDERS: ATTEND Specialist
DX: M50.321 Other cervical disc degeneration at C4-C5 level (principal); R20.2 Paresthesia of skin; M50.322 Other cervical disc degeneration at C5-C6 level; F17.200 Nicotine dependence, unspecified, uncomplicated; M47.812 Spondylosis without myelopathy or radiculopathy, cervical region; Z88.8 Allergy status to other drugs, medicaments and biological substances
CPT/HCPCS: 99211

== ENCOUNTER 2023-12-14 12:26 | Day surgery (SDC) | payer OTHER ==
[2023-12-14 13:55] VITALS: TEMP 97.4
[2023-12-14] MEDS: IV FLUID CONTINUATION 1,000 ML IV ONE (14:03)
[2023-12-14] MEDS: LACTATED RINGERS 1,000 ML IV SCH (14:03)
[2023-12-14] MEDS ORDERED: fentaNYL (PF) 50 MCG/ML 2 ML AMP ONE (14:22)
[2023-12-14] MEDS ORDERED: MIDAZOLAM 2 MG/2 ML VIAL ONE (14:22)
[2023-12-14] MEDS ORDERED: ROPIVACAINE 5MG/ML 20ML VIAL ONE (14:22)
--- NOTE | 2023-12-14 14:43 | P.PCN ---
Date of Procedure: 12/14/23 Procedure(s) Performed: PREOPERATIVE DIAGNOSIS: 1-Cervical Spondylosis with Facet Arthropathy.without myelopathy. 2-cervical degenerative disc disease POSTOPERATIVE DIAGNOSIS:1-cervical spondylosis with facet arthropathy without myelopathy. 2-cervical degenerative disc disease PROCEDURES: Diagnostic bilateral C4 , C5 , and C6 medial branch blocks, with fluoroscopic guidance (fluoroscopy images available in radiology department ) ( to target the facet joint at bilateral C4- 5 ,C5- 6 )# 1st ANESTHESIA: moderate sedation with Versed 2 mg , and fentanyl 50 micrograms (sedation started at 1422,ended at 1439 ) EBL: Minimal PROCEDURE INDICATION: The patient with neck pain secondary to cervical arthropathy unresponsive to more conservative treatments. PROCEDURE DESCRIPTION / TECHNIQUE: The patient was seen and identified in the preoperative area. Risks, benefits, complications, and alternatives were discussed with the patient, the patient agreed to proceed with the procedure and signed the consent. IV was started. Vital signs remained stable throughout the procedure. Patient was taken to the OR and time out was completed. The patient was placed in the prone position on the procedure table. A pillow was placed under the patients chest to increase the cervical interlaminar space. The cervical area was prepped and draped in the usual sterile fashion. Critical pause was taken. Vital signs were closely monitored during the procedure. Conscious sedation was used during the procedure to decrease patients anxiety. Using cross-table lateral fluoroscopy, the centroid of the trapezoid of right C4 , C5 and C6, was identified, marked, and localized with 1% lidocaine 1 ml at each level for skin and Sub Q infiltrations . Subsequently, a 22 G 3 spinal needle was advanced guided by fluoroscopy to the centroid of the trapezoid of Right C3, C4 , C5, C6 . [place] tip position was confirmed at the centroid of the trapezoids of Right C4 , C5 ,C6 with anteroposterior fluoroscopy. Subsequently, 1.5 ml of preservative-free Ropivacaine 0.5% , and half ml was injected after negative aspiration for blood and CSF. [place] was then removed intact the same procedure was repeated at the left C4 , C5 , and C6 levels. COMPLICATIONS: No acute complications. COMMENTS: DISPOSITION / PLANS: The patient was placed in a supine position and transferred to the recovery area in a stable condition for observation and was discharged from the recovery room after meeting discharge criteria. Home discharge instructions given to the patient by the staff. The patient was reexamined prior to discharge. The patient will schedule a follow up in the clinic in 2-4 weeks.
[2023-12-14] MEDS: IV FLUID CONTINUATION 650 ML IV ONE (14:45)
[2023-12-14 14:51] VITALS: PULSE 90
[2023-12-14 15:06] VITALS: BP 126/83; RESP 20
--- NOTE | 2023-12-14 15:33 | FL ---
Intraoperative/procedural fluoroscopic services were provided for cervical pain management. Total flu oroscopy time is 17.8 seconds with a total of 5 submitted images to PACS. Total DAP [id number] mGym2. P lease see the operative note for further details.
== END 2023-12-14 15:17 | disposition home or self-care (01) ==
LOC: ORPAIN 12:26
PROVIDERS: ATTEND Specialist
DX: M50.30 Other cervical disc degeneration, unspecified cervical region (principal); M47.812 Spondylosis without myelopathy or radiculopathy, cervical region; Z88.8 Allergy status to other drugs, medicaments and biological substances; F17.200 Nicotine dependence, unspecified, uncomplicated; Z79.899 Other long term (current) drug therapy
CPT/HCPCS: 64490; 64491; J2250; J3010; J2795; 99152

== ENCOUNTER → 2023-12-27 | Outpatient (CLI) | payer OTHER ==
[2023-12-27 14:29] VITALS: BP 122/85; PULSE 86; RESP 16; TEMP 97.6
--- NOTE | 2023-12-27 15:04 | P.PAINPG ---
PQRS Measure Charge Sheet Comment: HISTORY OF PRESENT ILLNESS: A 48 yr old male presents today w severe and chronic neck pain secondary to DDD, spondylosis and facet arthropathy without myelopathy for evaluation s/p BL MBB C4-C5, C5-C6 #1. Pt states he experienced 80 % pain relief x 18 hrs s/p procedure. Pt states pain level is provoked at 7 /10 in intensity, constant, localized in the cervical spine, predominantly axial, burning in character w occasional shooting pain towards the BL shoulders. Pain is provoked by hyperextension. Pain is alleviated by PT x 6 wks which ended in 2020, physician guided home exercises every morning since 2020, repositioning and rest . Cervical disability score at 22. Interventional procedures include BL MBB C4-C5/C5-C6 x1 Medications include Cannabis REVIEW OF ORGAN SYSTEMS: CONSTITUTIONAL: No fevers or chills. No recent weight loss. NEUROLOGICAL: + numbness and tingling along the distal extremities. No seizure disorders or headaches. MUSCULOSKELETAL: + pain PSYCHIATRIC: Denies current depression or suicidal thoughts. Physical Examinations : Constitutional : Cooperative , not in acute distress . Neurologic : Cranial nerve II to XII intact. No focal neurological deficits. Psychiatric : alert & oriented x 3. Matching mood & appropriate affect. Judgment & insight intact. Musculoskeletal : Cervical Spine Motor strength in the deltoid and biceps: Normal right side. Normal Left side Motor strength biceps and the wrist extensors: Normal right side . Normal left side Motor strength in the triceps muscle: Normal right side. Normal left side Deep tendon reflexes: Normal at the biceps. Normal at Brachioradialis. Normal at triceps Vertebral body tenderness to deep palpation over Cervical facet loading test: positive bilaterally C4-C5, C5-C6 Spurling test: positive bilaterally Neck distraction test: positive bilaterally Johnnie sign: positive bilaterally Lumbar spine Motor strength lower extremities ,thigh and legs 5/5 Right side , 5/5 Left side Deep tendon reflexes : Normal Knee Jerk. Normal Ankle Jerk Vertebral body tenderness over Escalante Test positive Lumbar facet Loading Test: positive Right / positive Left Range of motion of the lumbar spine Flexion 30 degrees, extension 10 degrees Straight Leg Raise test: Left/ Right positive at degrees Anderson test: positive right / positive left. Severe tenderness over the Sacroiliac joint on the Right / Left sides Gaenslen test: positive bilaterally Seated flexion test: positive bilaterally. Sacral spine : Severe tenderness over the Sacroiliac joint: right side / left side Range of motion: Flexion of the lumbar spine <60 degrees Range of motion: Extension of the lumbar spine <20 degrees Gaenslen's Test positive Anderson test: positive right side / left side Thigh Thrust Test Sacral Thrust Test Imaging: MRI cervical spine from 08/26/23 reviewed Assessment/ Plan : Cervical DDD Recommendation of BL MBB C4-C5, C5-C6 #2. Would benefit from a series of injections, up until RFA, for optimal pain relief. Risks, benefits of procedure discussed and patient verbalized understanding. Admits to anti- coagulant use or medical history of diabetes. Protocol for discontinuation/ continuation of medications evelyn procedure discussed. Minimal anesthesia provided, if clinically indicated, consisting of Versed and Fentanyl. All questions answered. I have spent greater than 30 minutes on patient care today. Dr Lee was available by phone for the evaluation of this patient. The time was used to review the medical records including relevant urine studies and Prescription history (MAPs), review of the available imaging, evaluation and examination of the patient, coordination of care with the medical staff and if applicable referring physicians, as well as creation of the medical record - Pain Location Right Neck Pharmacological Interventions: PRN Medication PQRS Narrative: Smoking Status Current every day smoker Hx Alcohol Use (MH) No Home Medications: Ambulatory Orders Colchicine [Colcrys] 0.6 mg PO BID 12/02/23 Indomethacin [Indocin] 50 mg PO BID 12/02/23 Pantoprazole [Protonix] 40 mg PO DAILY 12/02/23 Rosuvastatin Calcium [Crestor] 5 mg PO DAILY 12/02/23 amLODIPine [Norvasc] 5 mg PO DAILY 12/02/23 Ibuprofen [Motrin Ib] 800 mg PO Q8H 12/10/23 Gabapentin [Neurontin] 100 mg PO BID 30 Days #60 cap 12/16/23 Lidocaine 4% Patch 1 patch TOPICAL DAILY 30 Days #30 patch 12/16/23 Controlled Substance Measures - Controlled Substance Measures Is patient prescribed a controlled substance at discharge?: No
== END ==
LOC: PNWHC3 13:58
PROVIDERS: ATTEND Specialist
DX: M50.321 Other cervical disc degeneration at C4-C5 level (principal); M50.322 Other cervical disc degeneration at C5-C6 level; F17.200 Nicotine dependence, unspecified, uncomplicated; Z88.8 Allergy status to other drugs, medicaments and biological substances
CPT/HCPCS: 99211

== ENCOUNTER 2024-01-07 12:34 | Day surgery (SDC) | payer OTHER ==
[2024-01-07] MEDS: IV FLUID CONTINUATION 1,000 ML IV ONE ×2 (13:07→13:52)
[2024-01-07 13:17] VITALS: TEMP 97.3
[2024-01-07] MEDS: LACTATED RINGERS 1,000 ML IV SCH (13:25)
[2024-01-07] MEDS ORDERED: ROPIVACAINE 5MG/ML 20ML VIAL ONE (13:30)
[2024-01-07] MEDS ORDERED: fentaNYL (PF) 50 MCG/ML 2 ML AMP ONE (13:30)
[2024-01-07] MEDS ORDERED: MIDAZOLAM 2 MG/2 ML VIAL ONE (13:30)
--- NOTE | 2024-01-07 13:47 | P.PCN ---
Date of Procedure: 01/07/24 Procedure(s) Performed: PREOPERATIVE DIAGNOSIS: 1-Cervical Spondylosis with Facet Arthropathy.without myelopathy. 2-cervical degenerative disc disease POSTOPERATIVE DIAGNOSIS:1-cervical spondylosis with facet arthropathy without myelopathy. 2-cervical degenerative disc disease PROCEDURES: Diagnostic bilateral C4 , C5 , and C6 medial branch blocks, with fluoroscopic guidance (fluoroscopy images available in radiology department ) ( to target the facet joint at bilateral C4- 5 ,C5- 6 )# 2nd ANESTHESIA: moderate sedation with Versed 2 mg , and fentanyl 100 micrograms (sedation started at 13:30,ended at 13:44 ) EBL: Minimal PROCEDURE INDICATION: The patient with neck pain secondary to cervical arthropathy unresponsive to more conservative treatments. PROCEDURE DESCRIPTION / TECHNIQUE: The patient was seen and identified in the preoperative area. Risks, benefits, complications, and alternatives were discussed with the patient, the patient agreed to proceed with the procedure and signed the consent. IV was started. Vital signs remained stable throughout the procedure. Patient was taken to the OR and time out was completed. The patient was placed in the prone position on the procedure table. A pillow was placed under the patients chest to increase the cervical interlaminar space. The cervical area was prepped and draped in the usual sterile fashion. Critical pause was taken. Vital signs were closely monitored during the procedure. Conscious sedation was used during the procedure to decrease patients anxiety. Using cross-table lateral fluoroscopy, the centroid of the trapezoid of right C4 , C5 and C6, was identified, marked, and localized with 1% lidocaine 1 ml at each level for skin and Sub Q infiltrations . Subsequently, a 22 G 3 spinal needle was advanced guided by fluoroscopy to the centroid of the trapezoid of Right C4 , C5, C6 . [place] tip position was confirmed at the centroid of the trapezoids of Right C4 , C5 ,C6 with anteroposterior fluoroscopy. Subsequently, 1.5 ml of preservative-free Ropivacaine 0.5% , and half ml was injected after negative aspiration for blood and CSF. [place] was then removed intact the same procedure was repeated at the left C4 , C5 , and C6 levels. COMPLICATIONS: No acute complications. DISPOSITION / PLANS: The patient was placed in a supine position and transferred to the recovery area in a stable condition for observation and was discharged from the recovery room after meeting discharge criteria. Home discharge instructions given to the patient by the staff. The patient was reexamined prior to discharge. The patient will schedule a follow up in the clinic in 2-4 weeks.
[2024-01-07 13:56] VITALS: RESP 16
[2024-01-07 14:08] VITALS: BP 102/70; PULSE 82
--- NOTE | 2024-01-07 14:08 | FL ---
EXAMINATION TYPE: FL guided pain mgmt statistic Intraoperative/procedural fluoroscopic services were provided. Total fluoroscopy time is 14.1 seconds with a total of 4 submitted images to PACS. Please s ee the operative/procedural note for further details. DAP: [id number] mGym2
== END 2024-01-07 14:23 | disposition home or self-care (01) ==
LOC: ORPAIN 12:34
PROVIDERS: ATTEND Specialist
DX: M47.812 Spondylosis without myelopathy or radiculopathy, cervical region (principal); M50.30 Other cervical disc degeneration, unspecified cervical region; Z88.8 Allergy status to other drugs, medicaments and biological substances; F17.200 Nicotine dependence, unspecified, uncomplicated; Z79.899 Other long term (current) drug therapy
CPT/HCPCS: 99152

== ENCOUNTER → 2024-01-17 | Outpatient (CLI) | payer OTHER | LOC: PNWHC3 12:00 | PROVIDERS: ATTEND Specialist | DX: M47.812 Spondylosis without myelopathy or radiculopathy, cervical region | CPT/HCPCS: 99211 ==

== ENCOUNTER 2024-02-03 12:25 | Day surgery (SDC) | payer OTHER ==
[2024-02-03 13:53] VITALS: TEMP 97.5
[2024-02-03] MEDS: LACTATED RINGERS 1,000 ML IV SCH (13:55)
[2024-02-03] MEDS: IV FLUID CONTINUATION 1,000 ML IV ONE (13:56)
[2024-02-03] MEDS ORDERED: ROPIVACAINE 5MG/ML 20ML VIAL ONE (14:34)
[2024-02-03] MEDS ORDERED: methylPREDNISolone ACETATE 40 MG/ML 1 ML VIAL ONE (14:34)
[2024-02-03] MEDS ORDERED: MIDAZOLAM 2 MG/2 ML VIAL ONE (14:34)
[2024-02-03] MEDS ORDERED: fentaNYL (PF) 50 MCG/ML 2 ML AMP ONE (14:34)
--- NOTE | 2024-02-03 14:53 | P.PCN ---
Date of Procedure: 02/03/24 Procedure(s) Performed: PREOPERATIVE DIAGNOSIS: Cervical spondylosis with Facet Arthropathy without myelopathy. POSTOPERATIVE DIAGNOSIS: Cervical spondylosis with Facet Arthropathy without myelopathy. PROCEDURES: Radiofrequency thermocoagulation, Left C4, C5, C6 medial branch with Fluroscopy Guidence(fluoroscopy was available in Radiology department ) (to denervate the facet joint at Left C4- 5 , C5- 6 ) ANESTHESIA: moderate sedation with fentanyl 100 micrograms and Versed 2 mg ( sedation started at 14:34 ,end at 14:50 ) EBL: Minimal PROCEDURE INDICATION: The patient with neck pain secondary to cervical arthropathy who had more than 50% relief of her pain with previous diagnostic cervical medial branch block. PROCEDURE DESCRIPTION / TECHNIQUE: The patient was seen and identified in the preoperative area. Risks, benefits, complications, and alternatives were discussed with the patient, the patient agreed to proceed with the procedure and signed the consent. IV was started. Vital signs remained stable throughout the procedure. Patient was taken to the OR and time out was completed. The patient was placed in the prone position on the procedure table. A pillow was placed under the patients chest to increase the cervical interlaminar space. The cervical area was prepped and draped in the usual sterile fashion. Critical pause was taken. Vital signs were closely monitored during the procedure. Conscious sedation was used during the procedure to decrease patients anxiety. Using cross-table lateral fluoroscopy, the centroid of the trapezoid of Left C4, C5, and C6 were identified, marked, and localized with 1% lidocaine. Subsequently, a 20 [id number] radiofrequency cannula with a 10-mm active tip was advanced guided by fluoroscopy to the centroid of the trapezoid of Left , C4, C5, and C6 . Needle tip position was confirmed at the centroid of the trapezoids of Left C4, C5, and C6 with anteroposterior fluoroscopy. Each site then underwent sensory testing at 50 Hz and 0 to 1 volt and motor testing at 2 Hz and 0 to 3 volt with local stimulation, but no radicular symptoms down the arm. Thereafter each sites underwent radiofrequency thermocoagulation at 80 degrees celsius for 90 seconds after injecting 0.5 ml of PF Ropivacaine 0.5 %. After thermocoagulation, 1 ml of the block solution containing Depo-Medrol 40 mg and 5 mL of preservative-free normal saline was injected at the Left C4, C5, and C6 levels after negative aspiration of CSF and blood and with no paresthesias. Cannulas were retracted while injecting lidocaine 1% until the needle is out. Skin was cleansed and bandages were applied. COMPLICATIONS: No acute complications. DISPOSITION / PLANS: The patient was placed in a supine position and transferred to the recovery area in a stable condition for observation and was discharged from the recovery room after meeting discharge criteria. Home discharge instructions given to the patient by the staff. The patient was reexamined prior to discharge. The patient will schedule a follow up in the clinic in 2-4 weeks.
[2024-02-03] MEDS: IV FLUID CONTINUATION 800 ML IV ONE (15:00)
[2024-02-03 15:02] VITALS: RESP 16
[2024-02-03 15:19] VITALS: BP 117/78; PULSE 88
== END 2024-02-03 15:31 | disposition home or self-care (01) ==
LOC: ORPAIN 12:25
PROVIDERS: ATTEND Specialist
DX: M47.812 Spondylosis without myelopathy or radiculopathy, cervical region (principal)
CPT/HCPCS: 64633; 64634; 99152

== ENCOUNTER 2024-02-17 12:32 | Day surgery (SDC) | payer OTHER ==
[2024-02-15 10:15] VITALS: BMI 28.5
[~2024-02-17 12:32] MED LIST: LACTATED RINGERS 1,000 ML IV SCH
[2024-02-17] MEDS: IV FLUID CONTINUATION 1,000 ML IV ONE (12:43)
[2024-02-17 12:52] VITALS: TEMP 97.1
[2024-02-17] MEDS ORDERED: ROPIVACAINE 5MG/ML 20ML VIAL ONE (13:27)
[2024-02-17] MEDS ORDERED: fentaNYL (PF) 50 MCG/ML 2 ML AMP ONE (13:27)
[2024-02-17] MEDS ORDERED: methylPREDNISolone ACETATE 40 MG/ML 1 ML VIAL ONE (13:27)
[2024-02-17] MEDS ORDERED: MIDAZOLAM 2 MG/2 ML VIAL ONE (13:27)
--- NOTE | 2024-02-17 13:55 | P.PCN ---
Date of Procedure: 02/17/24 Procedure(s) Performed: PREOPERATIVE DIAGNOSIS: Cervical spondylosis with Facet Arthropathy without myelopathy. POSTOPERATIVE DIAGNOSIS: Cervical spondylosis with Facet Arthropathy without myelopathy. PROCEDURES: Radiofrequency thermocoagulation,Right C4, C5, C6 medial branch with Fluroscopy Guidence(fluoroscopy was available in Radiology department ) (to denervate the facet joint at Right C4- 5 , C5- 6 ) ANESTHESIA: moderate sedation with fentanyl 100 micrograms and Versed 2 mg ( sedation started at 13:27 ,end at 13:51 ) EBL: Minimal PROCEDURE INDICATION: The patient with neck pain secondary to cervical arthropathy who had more than 50% relief of her pain with previous diagnostic cervical medial branch block. PROCEDURE DESCRIPTION / TECHNIQUE: The patient was seen and identified in the preoperative area. Risks, benefits, complications, and alternatives were discussed with the patient, the patient agreed to proceed with the procedure and signed the consent. IV was started. Vital signs remained stable throughout the procedure. Patient was taken to the OR and time out was completed. The patient was placed in the prone position on the procedure table. A pillow was placed under the patients chest to increase the cervical interlaminar space. The cervical area was prepped and draped in the usual sterile fashion. Critical pause was taken. Vital signs were closely monitored during the procedure. Conscious sedation was used during the procedure to decrease patients anxiety. Using cross-table lateral fluoroscopy, the centroid of the trapezoid of Right C4, C5, and C6 were identified, marked, and localized with 1% lidocaine. Subsequently, a 20 [id number] radiofrequency cannula with a 10-mm active tip was advanced guided by fluoroscopy to the centroid of the trapezoid of Right , C4, C5, and C6 . Needle tip position was confirmed at the centroid of the trapezoids of Right C4, C5, and C6 with anteroposterior fluoroscopy. Each site then underwent sensory testing at 50 Hz and 0 to 1 volt and motor testing at 2 Hz and 0 to 3 volt with local stimulation, but no radicular symptoms down the arm. Thereafter each sites underwent radiofrequency thermocoagulation at 80 degrees celsius for 90 seconds after injecting 0.5 ml of PF Ropivacaine 0.5 %. After thermocoagulation, 1 ml of the block solution containing Depo-Medrol 40 mg and 5 mL of preservative-free normal saline was injected at the Right C4, C5, and C6 levels after negative aspiration of CSF and blood and with no paresthesias. Cannulas were retracted while injecting lidocaine 1% until the needle is out. Skin was cleansed and bandages were applied. COMPLICATIONS: No acute complications. DISPOSITION / PLANS: The patient was placed in a supine position and transferred to the recovery area in a stable condition for observation and was discharged from the recovery room after meeting discharge criteria. Home discharge instructions given to the patient by the staff. The patient was reexamined prior to discharge. The patient will schedule a follow up in the clinic in 2-4 weeks.
[2024-02-17] MEDS: IV FLUID CONTINUATION 500 ML IV ONE (14:03)
[2024-02-17 14:06] VITALS: RESP 16
[2024-02-17 14:24] VITALS: BP 118/73; PULSE 79
--- NOTE | 2024-02-17 14:46 | FL ---
EXAMINATION TYPE: FL guided pain mgmt statistic DATE OF EXAM: 02/17/2024 FLUOROSCOPY RFA FACET BLOCK CERVICAL IN PAIN MANAGEMENT WITH DR. CONNELLY FL TIME 28.6 DAP [id number] 2 images provided
== END 2024-02-17 14:48 | disposition home or self-care (01) ==
LOC: ORPAIN 12:32
PROVIDERS: ATTEND Specialist
DX: M47.812 Spondylosis without myelopathy or radiculopathy, cervical region (principal)
CPT/HCPCS: 64633; 64634; J2250; J3010; J2795; J1010; 99152

== ENCOUNTER → 2024-03-13 | Outpatient (CLI) | payer OTHER ==
[2024-03-13 14:15] VITALS: BP 137/88; PULSE 75; RESP 16
--- NOTE | 2024-03-13 15:08 | P.PAINPG ---
Objective - Vital Signs Vital signs: Vital Signs Temp Pulse 75 03/13/24 14:13 Resp 16 03/13/24 14:13 BP 137/88 03/13/24 14:13 Pulse Ox 97 03/13/24 14:13 FiO2 Intake & Output 03/12/24 03/13/24 03/13/24 18:59 06:59 18:59 Weight 92.986 kg PQRS Measure Charge Sheet Mode of Arrival: Ambulatory Comment: HISTORY OF PRESENT ILLNESS: A 48 yr old male presents today w severe and chronic neck & back pain > 6 mo secondary to radiculopathy, spondylosis and facet arthropathy without myelopathy for evaluation s/p BL RFA C4-C5, C5-C6. Pt states he experienced 90 % pain relief s/p procedure. Pt states pain level is provoked at 6 /10 in intensity, constant, localized in the lumbar spine, predominantly axial, burning in character w occasional shooting pain towards the BL hips and knees. Pain is provoked by bending. Pain is alleviated by PT x 6 wks which ended in 2020 (cervical), physician guided home exercises every morning since 2020 (cervical, lumbar), medications, THC use, repositioning and rest . Interventional procedures include BL RFA C4-C5/C5-C6 (Feb 2024) Medications include Neurontin 300mg #90, Cannabis REVIEW OF ORGAN SYSTEMS: CONSTITUTIONAL: No fevers or chills. No recent weight loss. NEUROLOGICAL: + numbness and tingling along the distal extremities. No seizure disorders or headaches. MUSCULOSKELETAL: + pain PSYCHIATRIC: Denies current depression or suicidal thoughts. Physical Examinations : Constitutional : Cooperative , not in acute distress . Neurologic : Cranial nerve II to XII intact. No focal neur ological deficits. Psychiatric : alert & oriented x 3. Matching mood & appropriate affect. Judgment & insight intact. Musculoskeletal : Cervical Spine Motor strength in the deltoid and biceps: Normal right side. Normal Left side Motor strength biceps and the wrist extensors: Normal right side . Normal left side Motor strength in the triceps muscle: Normal right side. Normal left side Deep tendon reflexes: Normal at the biceps. Normal at Brachioradialis. Normal at triceps Vertebral body tenderness to deep palp ation over Cervical facet loading test: positive bilaterally C4-C5, C5-C6 Spurling test: positive bilaterally Neck distraction test: positive bilaterally Johnnie sign: positive bilaterally Lumbar spine Motor strength lower extremities ,thigh and legs 5/5 Right side , 5/5 Left side Deep tendon reflexes : Normal Knee Jerk. Normal Ankle Jerk Vertebral body tenderness over Escalante Test positive Lumbar facet Loading Test: positive Right / positive Left Range of motion of the lumbar spine Flexion 30 degrees, extension 10 degrees Straight Leg Raise test: Left/ Right positive at degrees Anderson test: positive right / positive left. Severe tenderness over the Sacroiliac joint on the Right / Left sides Gaenslen test: positive bilaterally Seated flexion test: positive bilaterally. Sacral spine : Severe tenderness over the Sacroiliac joint: right side / left side Range of motion: Flexion of the lumbar spine <60 degrees Range of motion: Extension of the lumbar spine <20 degrees Gaenslen's Test positive Anderson test: positive right side / left side Thigh Thrust Test Sacral Thrust Test Imaging: MRI cervical spine from 08/26/23 reviewed Assessment/ Plan : Cervical radiculopathy, Lumbar radiculopathy Recommendation of lumbar x ray M54.16 Neurontin 300mg #90, add Zanaflex 4mg #90 w 1 RF. Use, side effects, adverse reactions, safe storage discussed. All questions answered. I have spent greater than 30 minutes on patient care today. Dr Lee was available by phone for the evaluation of this patient. The time was used to review the medical records including relevant urine studies and Prescription history (MAPs), review of the available imaging, evaluation and examination of the patient, coordination of care with the medical staff and if applicable referring physicians, as well as creation of the medical record - Pain Location Bilateral Lower Back Non-Pharmacological Interventions: Home Exercise, Inactivity, Position/Reposition, Stretching Pharmacological Interventions: PRN Medication, Topical Medication PQRS Narrative: Smoking Status Current every day smoker Blood Pressure 137/88 Pain Intensity [Bilateral 6 Lower Back] Scale Used Numeric (1 - 10) Hx Alcohol Use (MH) No Home Medications: Ambulatory Orders Colchicine [Colcrys] 0.6 mg PO BID 12/02/23 Indomethacin [Indocin] 50 mg PO BID 12/02/23 Pantoprazole [Protonix] 40 mg PO DAILY 12/02/23 Rosuvastatin Calcium [Crestor] 5 mg PO DAILY 12/02/23 amLODIPine [Norvasc] 5 mg PO DAILY 12/02/23 Ibuprofen [Motrin Ib] 800 mg PO Q8H PRN 12/10/23 Lidocaine 4% Patch 1 patch TOPICAL DAILY 30 Days #30 patch 12/16/23 Diclofenac Sodium Gel [Voltaren 1% Gel] 100 gm TOPICAL DAILY PRN 01/06/24 Gabapentin [Neurontin] 300 mg PO TID 30 Days #90 cap 03/13/24 tiZANidine [Zanaflex] 4 mg PO TID PRN 30 Days #90 tab 03/13/24 Controlled Substance Measures - Controlled Substance Measures Is patient prescribed a controlled substance at discharge?: No
== END | disposition home or self-care (01) ==
LOC: PNWHC3 13:56
PROVIDERS: ATTEND Specialist
DX: M47.26 Other spondylosis with radiculopathy, lumbar region (principal); F17.200 Nicotine dependence, unspecified, uncomplicated; Z88.8 Allergy status to other drugs, medicaments and biological substances
CPT/HCPCS: 99211

== ENCOUNTER → 2024-03-28 | Outpatient (CLI) | payer OTHER ==
--- NOTE | 2024-03-29 14:15 | MR ---
EXAMINATION TYPE: MR lumbar spine wo con DATE OF EXAM: 03/28/2024 9:38 PM CLINICAL INDICATION: Male, 48 years old with history of M54.16, Low back pain into both sides of butt ocks, Inflamed joints since Jun 2023 COMPARISON: None TECHNIQUE: Multi planar, multi sequence imaging was performed utilizing: T1-weighted, T2-weighted, a nd turbo inversion recovery imaging of the lumbar spine. IV Contrast: cc . (None if empty) FINDINGS: Alignment: The lumbar vertebral bodies have preserved heights and alignment. Cord: The conus medullaris and the distal spinal cord appear unremarkable with regards to their signa l intensity and morphology. Bones/Discs: Mild degeneration changes throughout the spine with osteophyte formation and facet joint arthropathy. Multilevel disc desiccation is present. No abnormal inversion recovery signal to sugges t bony edema. L1 vertebral body height T2 high T1 signal probable vertebral body hemangioma. T12-L1: No evidence of significant spinal canal stenosis or neural foraminal stenosis. L1-L2: No evidence of significant spinal canal stenosis or neural foraminal stenosis. L2-L3: No evidence of significant spinal canal stenosis or neural foraminal stenosis. L3-L4: No evidence of significant spinal canal stenosis or neural foraminal stenosis. L4-L5: Disc bulge and facet joint arthropathy result in mild spinal canal and moderate to severe bila teral neural foraminal stenosis. L5-S1: The disc has a rounded posterior morphology without significant spinal canal stenosis. Facet j oint arthropathy with mild bilateral neural foraminal stenosis. No significant spinal canal or neural foraminal stenosis in the remainder of the visualized levels. Other findings: None. IMPRESSION: 1. L4-L5 moderate to severe bilateral neural foraminal stenosis. 2. No definitive evidence of disc herniation or significant spinal canal stenosis. 3. Mild disc degeneration with associated osteoarthritic changes. [facility], , 03/29/2024 2:13 PM
== END | disposition home or self-care (01) ==
LOC: RADMRIMAIN 20:00
PROVIDERS: ATTEND Specialist
DX: M54.16 Radiculopathy, lumbar region
CPT/HCPCS: 72148

== ENCOUNTER → 2024-03-30 | Outpatient (CLI) | payer OTHER ==
[2024-03-30 12:58] VITALS: BP 118/85; PULSE 82; RESP 16
--- NOTE | 2024-03-30 15:04 | P.PAINPG ---
Objective - Vital Signs Vital signs: Vital Signs Temp Pulse 82 03/30/24 12:54 Resp 16 03/30/24 12:54 BP 118/85 03/30/24 12:54 Pulse Ox 97 03/30/24 12:54 FiO2 Intake & Output 03/29/24 03/30/24 03/30/24 18:59 06:59 18:59 Weight 92.986 kg PQRS Measure Charge Sheet Mode of Arrival: Cane Comment: HISTORY OF PRESENT ILLNESS: A 48 yr old male presents today w severe and chronic neck & back pain > 6 mo s econdary to radiculopathy, spondylosis and facet arthropathy without myelopathy for MRI results. Pt states pain level is provoked at 6 /10 in intensity, constant, localized in the lumbar spine, predominantly axial, burning in character w occasional shooting pain towards the BL hips and knees. Pain is provoked by bending. Pain is alleviated by PT x 6 wks which ended in 2020 (cervical), physician guided home exercises every morning since 2020 (cervical, lumbar), use of a cane for ambulatory assistance, medications, repositioning and rest . Pt states he discontinued THC use for 1 month and doesn't plan on returning on cannabis. Interventional procedures include BL RFA C4-C5/C5-C6 (Feb 2024) Medications include Neurontin 300mg #90. Discontinued Cannabis use. REVIEW OF ORGAN SYSTEMS: CONSTITUTIONAL: No fevers or chills. No recent weight loss. NEUROLOGICAL: + numbness and tingling along the distal extremities. No seizure disorders or headaches. MUSCULOSKELETAL: + pain PSYCHIATRIC: Denies current depression or suicidal thoughts. Physical Examinations : Constitutional : Cooperative , not in acute distress . Neurologic : Cranial nerve II to XII intact. No focal neurological deficits. Psychiatric : alert & oriented x 3. Matching mood & appropriate affect. Judgment & insight intact. Musculoskeletal : Cervical Spine Motor strength in the deltoid and biceps: Normal right side. Normal Left side Motor strength biceps and the wrist extensors: Normal right side . Normal left side Motor strength in the triceps muscle: Normal right side. Normal left side Deep tendon reflexes: Normal at the biceps. Normal at Brachioradialis. Normal at triceps Vertebral body tenderness to deep palpation over Cervical facet loading test: positive bilaterally C4-C5, C5-C6 Spurling test: positive bilaterally Neck distraction test: positive bilaterally Johnnie sign: positive bilaterally Lumbar spine Motor strength lower extremities ,thigh and legs 5/5 Right side , 5/5 Left side Deep tendon reflexes : Normal Knee Jerk. Normal Ankle Jerk Vertebral body tenderness over L4 Escalante Test positive BL L4-L5 Lumbar facet Loading Test: positive Right / positive Left Range of motion of the lumbar spine Flexion 30 degrees, extension 10 degrees Straight Leg Raise test: Left/ Right positive at degrees Anderson test: positive right / positive left. Severe tenderness over the Sacroiliac joint on the Right / Left sides Gaenslen test: positive bilaterally Seated flexion test: positive bilaterally. Sacral spine : Severe tenderness over the Sacroiliac joint: right side / left side Range of motion: Flexion of the lumbar spine <60 degrees Range of motion: Extension of the lumbar spine <20 degrees Gaenslen's Test positive Anderson test: positive right side / left side Thigh Thrust Test Sacral Thrust Test Imaging: MRI non contrast cervical spine from 08/26/23 reviewed MRI non contrast lumbar spine from 03/28/24 reviewed Assessment/ Plan : Cervical radiculopathy, L4-L5 mild stenosis, Recommendation of TRINY L4-L5 #1. Risks, benefits of procedure discussed and pt verbalized understanding. Protocol for discontinuation/continuation of medications evelyn procedure discussed. Opiate/ narcotic agreement signed 03/30/24. [place] 7.5/325mg #90 w 1 RF. Use, side effects, adverse reactions, safe storage discussed. All questions answered. I have spent greater than 30 minutes on patient care today. Dr Lee was available by phone for the evaluation of this patient. The time was used to review the medical records including relevant urine studies and Prescription history (MAPs), review of the available imaging, evaluation and examination of the patient, coordination of care with the medical staff and if applicable referring physicians, as well as creation of the medical record - Pain Location Bilateral Lower Back Non-Pharmacological Interventions: Heat, Home Exercise, Inactivity, Physical Therapy, Stretching Pharmacological Interventions: PRN Medication, Topical Medication PQRS Narrative: Smoking Status Current every day smoker Blood Pressure 118/85 Pain Intensity [Bilateral 7 Lower Back] Scale Used Numeric (1 - 10) Hx Alcohol Use (MH) No Home Medications: Ambulatory Orders Colchicine [Colcrys] 0.6 mg PO BID 12/02/23 Indomethacin [Indocin] 50 mg PO BID 12/02/23 Pantoprazole [Protonix] 40 mg PO DAILY 12/02/23 Rosuvastatin Calcium [Crestor] 5 mg PO DAILY 12/02/23 amLODIPine [Norvasc] 5 mg PO DAILY 12/02/23 Ibuprofen [Motrin Ib] 800 mg PO Q8H PRN 12/10/23 Lidocaine 4% Patch 1 patch TOPICAL DAILY 30 Days #30 patch 12/16/23 Diclofenac Sodium Gel [Voltaren 1% Gel] 100 gm TOPICAL DAILY PRN 01/06/24 Gabapentin 300 mg PO TID 30 Days #90 cap 03/13/24 tiZANidine [Zanaflex] 4 mg PO TID PRN 30 Days #90 tab 03/13/24 HYDROcodone/APAP 7.5-325MG [[place] 7.5-325] 1 tab PO TID PRN 30 Days #90 tab 03/30/24 HYDROcodone/APAP 7.5-325MG [[place] 7.5-325] 1 tab PO TID PRN 30 Days #90 tab 03/30/24 Controlled Substance Measures - Controlled Substance Measures Is patient prescribed a controlled substance at discharge?: Yes When asked, does pt state using other controlled substances?: No If prescribed controlled substance>3 days was MAPS reviewed?: Yes If Rx opioid, was Start Talking consent form obtained?: Yes Was information provided regarding opioid addiction?: Yes
== END ==
LOC: PNWHC3 12:33
PROVIDERS: ATTEND Specialist
CPT/HCPCS: 99211

== ENCOUNTER 2024-04-18 12:11 | Day surgery (SDC) | payer OTHER ==
[2024-04-18] MEDS ORDERED: LACTATED RINGERS 1,000 ML IV SCH (13:23)
[2024-04-18 13:30] VITALS: RESP 16; TEMP 97.2
[2024-04-18] MEDS ORDERED: IOPAMIDOL M200 10 ML VIAL ONE (13:56)
[2024-04-18] MEDS ORDERED: methylPREDNISolone ACETATE 80 MG/ML 1 ML VIAL ONE (13:56)
--- NOTE | 2024-04-18 14:03 | P.PCN ---
Date of Procedure: 04/18/24 Procedure(s) Performed: PREOPERATIVE DIAGNOSIS: 1- Lumbar Degenerative Disc Diseases 2-Lumbar spondylosis with Facet arthropathy without myelopathy. 3-lumbar spinal stenosis 4-lumbar radiculopathy POSTOPERATIVE DIAGNOSIS: 1-lumbar degenerative disc disease. 2-lumbar spondylosis with facet arthropathy without myelopathy. 3-lumbar spinal stenosis. 4-lumbar radiculopathy PROCEDURE 1. Lumbar epidural steroid injection under fluoroscopic guidance at the L4-5 level. (Fluoroscopy imaging was available in radiology department) 2. Lumbar epidurogram. ANESTHESIA: Lidocaine 1% 3 and then only. EBL: Minimal PROCEDURE INDICATION: The patient with low back pain and radiculitis symptoms unresponsive to conservative treatment. Fluoroscopy was used to optimize visualization of the needle placement and to maximize safety. PROCEDURE DESCRIPTION / TECHNIQUE: The patient was seen and identified in the preoperative area. Risks, benefits, complications including but not limited to infections ,bleeding ,allergic reaction to the medications ,nerve damage and not complete pain releife , and alternatives were discussed with the patient. The patient agreed to proceed with the procedure and signed the consent, and vital signs were stable. Patient was taken to the OR and time out was completed. The patient was placed in the prone position on procedure table and a pillow was placed under the abdomen to reduce lumbar lordosis. The lumbosacral area was prepped and draped in the usual sterile fashion.ere closely monitored during the procedure. Vital signs was monitered during the entire procedure. Using anterior-posterior fluoroscopy, the L4-5 interlaminar space was identified and the skin over this site was marked and then infiltrated with 1% lidocaine subcutaneously. Subsequently, a 20-gauge Tuohy epidural needle was inserted and advanced toward the epidural space using the ``Loss of resistance technique and guided by AP and lateral fluoroscopy. The correct needle position in the epidural space was verified with the injection of 2 mL of the water soluble contrast dye Isovue 200 contrast and observing an excellent epidurogram with the epidural spread of the dye, after negative aspiration for blood and CSF and in the absence of paresthesias. Again after negative aspiration, a 6 ml mixture containing 80 mg of Depo-medrol ( Preservetive Free ), and 2 ml of preservative free Normal Saline, and 2 ml of preservative free lidocaine 1% solution was injected and a washout of epidurogram was seen. Needle was withdrawn intact, skin was cleansed, and bandages were applied. COMPLICATIONS: None DISPOSITION / PLANS: The patient was placed in a supine position and transferred to the recovery area in a stable condition for observation. There was no evidence of lower extremity motor or sensory deficit after the procedure. Patient was discharged from the recovery room after meeting discharge criteria. Home discharge instructions were given to the patient by the staff. The patient was reexamined prior to discharge. The patient will schedule a follow up in the clinic in 2-4 weeks.
[2024-04-18 14:20] VITALS: BP 114/76; PULSE 81
--- NOTE | 2024-04-18 14:31 | FL ---
EXAMINATION TYPE: FL guided pain mgmt statistic DATE OF EXAM: 04/18/2024 2:09 PM COMPARISON: Pre Operative Images if available both CT/MRI or plain film CLINICAL INDICATION: Male, 48 years old with history of M54.16; TECHNIQUE: FL guided pain mgmt statistic, multiple fluoroscopic images provided for procedure. Total fluoroscopy time: 2.6 seconds Total submitted images to PACS: 1 DAP: [id number] mGym2 Gycm2 uGym2 cGycm2 or equivalent. FINDINGS: Fluoroscopic images during injection for pain management demonstrate multilevel degeneration changes throughout the spine. No evidence for fracture. No acute process identified. IMPRESSION: 1. No evidence for intraoperative complication. 2. Please see the operative/procedural note for further details. [facility], , 04/18/2024 2:28 PM
== END 2024-04-18 14:24 | disposition home or self-care (01) ==
LOC: ORPAIN 12:11
PROVIDERS: ATTEND Specialist
DX: M47.26 Other spondylosis with radiculopathy, lumbar region (principal); M48.061 Spinal stenosis, lumbar region without neurogenic claudication; Z88.8 Allergy status to other drugs, medicaments and biological substances
CPT/HCPCS: 62323; Q9966; J1010

== ENCOUNTER → 2024-05-19 | Outpatient (CLI) | payer OTHER ==
--- NOTE | 2024-05-19 16:48 | XR ---
EXAMINATION TYPE: XR Hip Bilateral Complete, XR femur bilateral, XR knee standing AP BILAT DATE OF EXAM: 05/19/2024 1:28 PM COMPARISON: None CLINICAL INDICATION: Male, 48 years old with history of M19.90 UNSPECIFIED OSTEOARTHRITIS, UNSPECIFIE D SIT; PHH, pain TECHNIQUE: XR Hip Bilateral Complete, XR femur bilateral, XR knee standing AP BILAT; Frontal and lat eral views 2 views of the bilateral hips. 2 views of the bilateral femora's. 3 views of the bilateral knees. FINDINGS Right: Deformity to the right femoral head suggestive of avascular necrosis with collapse. There is s evere degeneration changes right hip with loss of joint space, sclerosis and osteophytes. At the femu r is intact. There is mild degeneration changes of the right knee with osteophyte formation and joint space narrowing. Left: Complete loss of joint space of the left hip with osteophyte formation. There is subchondral sc lerosis suggested involving the left femoral head. The left knee dose is mild osteophyte formation an d minimal joint space narrowing. There is a fabella present. IMPRESSION: Right: 1. Deformity to the right femoral head suggestive of avascular necrosis with collapse. 2. degeneration changes right hip with loss of joint space, sclerosis and osteophytes. 3. Severe right hip degeneration secondary to likely avascular necrosis of the femoral head. 4. No evidence of fracture. Left: 1. Left hip severe joint space narrowing with osteophyte formation. 2. Mild left knee osteoarthrosis of the knee. 3. No evidence of fracture. 4. [facility], , 05/19/2024 4:46 PM
== END | disposition home or self-care (01) ==
LOC: RADXRMAIN 12:47
PROVIDERS: ATTEND Internal Medicine
DX: M17.12 Unilateral primary osteoarthritis, left knee (principal); M25.752 Osteophyte, left hip; M16.11 Unilateral primary osteoarthritis, right hip
CPT/HCPCS: 73521; 73565

== ENCOUNTER → 2024-05-25 | Outpatient (CLI) | payer OTHER ==
[2024-05-25 14:04] VITALS: BP 124/80; PULSE 96; RESP 16
--- NOTE | 2024-05-25 15:17 | P.PAINPG ---
PQRS Measure Charge Sheet Comment: HISTORY OF PRESENT ILLNESS: A 48 yr old male presents today w severe and chronic neck & back pain > 6 mo secondary to BL Hip DJD, R Hip Avascular Necrosis, radiculopathy, spondylosis and facet arthropathy without myelopathy for evaluation. Pt states pain level is provoked at 6 /10 in intensity, constant, localized in the lumbar spine, predominantly axial, burning in character w occasional shooting pain towards the BL hips and knees. Pain is provoked by bending. Pain is alleviated by PT x 6 wks which ended in 2020 (cervical), physician guided home exercises every morning since 2020 (cervical, lumbar), use of a cane for ambulatory assistance, medications, repositioning and rest . Pt states he discontinued THC use for 1 month and doesn't plan on returning on cannabis. Interventional procedures include BL RFA C4-C5/C5-C6 (Feb 2024), TRINY L4-L5 x1 Medications include Neurontin 300mg #90. Discontinued Cannabis use. REVIEW OF ORGAN SYSTEMS: CONSTITUTIONAL: No fevers or chills. No recent weight loss. NEUROLOGICAL: + numbness and tingling along the distal extremities. No seizure disorders or headaches. MUSCULOSKELETAL: + pain PSYCHIATRIC: Denies current depression or suicidal thoughts. Physical Examinations : Constitutional : Cooperative , not in acute distress . Neurologic : Cranial nerve II to XII intact. No focal neurological deficits. Psychiatric : alert & oriented x 3. Matching mood & appropriate affect. Judgment & insight intact. Musculoskeletal : Cervical Spine Motor strength in the deltoid and bicep s: Normal right side. Normal Left side Motor strength biceps and the wrist extensors: Normal right side . Normal left side Motor strength in the triceps muscle: Normal right side. Normal left side Deep tendon reflexes: Normal at the biceps. Normal at Brachioradialis. Normal at triceps Vertebral body tenderness to deep palpation over Cervical facet loading test: positive bilaterally C4-C5, C5-C6 Spurling test: positive bilaterally Neck distraction test: positive bilaterally Johnnie sign: positive bilaterally Lumbar spine Motor strength lower extremities ,thigh and legs 5/5 Right side , 5/5 Left side Deep tendon reflexes : Normal Knee Jerk. Normal Ankle Jerk Vertebral body tenderness over L4 Escalante Test positive BL L4-L5 Lumbar facet Loading Test: positive Right / positive Left Range of motion of the lumbar spine Flexion 30 degrees, extension 10 degrees Straight Leg Raise test: Left/ Right positive at degrees Anderson test: positive right / positive left. Severe tenderness over the Sacroiliac joint on the Right / Left sides Gaenslen test: positive bilaterally Seated flexion test: positive bilaterally. Sacral spine : Severe tenderness over the Sacroiliac joint: right side / left side Range of motion: Flexion of the lumbar spine <60 degrees Range of motion: Extension of the lumbar spine <20 degrees Gaenslen's Test positive Anderson test: positive right side / left side Thigh Thrust Test Sacral Thrust Test Imaging: X ray BL hip from 05/19/24 MRI non contrast cervical spine from 08/26/23 reviewed MRI non contrast lumbar spine from 03/28/24 reviewed Assessment/ Plan : Cervical radiculopathy, L4-L5 mild stenosis, R Hip DJF w Avascular Necrosis, L Hip DJD Recommendation of followup w OA for R hip avascular necrosis and medication management. Script provided. Fold out seat walker M87.059, G89.4. UDS collected 05/25/24. Opiate/ narcotic agreement signed 05/25/24. Incr [place] 10/325mg #90 w 1 RF. Use, side effects, adverse reactions, safe storage discussed. All questions answered. I have spent greater than 30 minutes on patient care today. Dr Lee was available by phone for the evaluation of this patient. The time was used to review the medical records including relevant urine studies and Prescription history (MAPs), review of the available imaging, evaluation and examination of the patient, coordination of care with the medical staff and if applicable referring physicians, as well as creation of the medical record - Pain Location Bilateral Lower Back Non-Pharmacological Interventions: Heat, Home Exercise, Inactivity, Physical Therapy, Position/Reposition, Sitting, Stretching Pharmacological Interventions: Epidural, PRN Medication, Scheduled Medication, Topical Medication PQRS Narrative: Smoking Status Current every day smoker Hx Alcohol Use (MH) No Home Medications: Ambulatory Orders Colchicine [Colcrys] 0.6 mg PO BID 12/02/23 Indomethacin [Indocin] 50 mg PO BID 12/02/23 Pantoprazole [Protonix] 40 mg PO DAILY 12/02/23 Rosuvastatin Calcium [Crestor] 5 mg PO DAILY 12/02/23 amLODIPine [Norvasc] 5 mg PO DAILY 12/02/23 Ibuprofen [Motrin Ib] 800 mg PO Q8H PRN 12/10/23 Lidocaine 4% Patch 1 patch TOPICAL DAILY 30 Days #30 patch 12/16/23 Diclofenac Sodium Gel [Voltaren 1% Gel] 100 gm TOPICAL DAILY PRN 01/06/24 Gabapentin 300 mg PO TID 30 Days #90 cap 05/25/24 HYDROcodone/APAP 10-325MG [[place] 10-325] 1 tab PO TID PRN 30 Days #90 tab 05/25/24 HYDROcodone/APAP 10-325MG [[place] 10-325] 1 tab PO TID PRN 30 Days #90 tab 05/25/24 tiZANidine [Zanaflex] 4 mg PO TID PRN 30 Days #90 tab 05/25/24 Controlled Substance Measures - Controlled Substance Measures Is patient prescribed a controlled substance at discharge?: Yes When asked, does pt state using other controlled substances?: Yes If prescribed controlled substance>3 days was MAPS reviewed?: Yes
== END ==
LOC: PNWHC3 13:18
PROVIDERS: ATTEND Specialist
DX: M87.059 Idiopathic aseptic necrosis of unspecified femur (principal); M47.816 Spondylosis without myelopathy or radiculopathy, lumbar region; M54.12 Radiculopathy, cervical region; G89.4 Chronic pain syndrome; M48.061 Spinal stenosis, lumbar region without neurogenic claudication; M87.9 Osteonecrosis, unspecified; M16.0 Bilateral primary osteoarthritis of hip; F17.200 Nicotine dependence, unspecified, uncomplicated; Z88.8 Allergy status to other drugs, medicaments and biological substances
CPT/HCPCS: 99212

== ENCOUNTER → 2024-07-05 | Outpatient (CLI) | payer OTHER ==
--- NOTE | 2024-07-05 12:33 | NM ---
INDICATION: Patient age:Male; 49 years old; Reason for study: M19.90 OA; PHH. COMPARISON: Bilateral hip radiograph 05/19/2024. TECHNIQUE: Intravenous administration of 23.3 mCi of Technetium 99m-Medronate followed by multiple sc intigraphic images of the appendicular and axial skeleton. Small hdduh-sf-stvy dorsal, palmar, latera l, and medial images were obtained of both hands. Additionally, small field of view planar anterior a nd posterior images of the lumbosacral spine and pelvis. Small dfsou-nl-pelt medial and lateral imag es were obtained of the bilateral ankle and feet. Small ubvbk-ns-msjn medial and lateral images were obtained of the bilateral knees. FINDINGS: No abnormal uptake is identified within the appendicular or axial skeleton to suggest metastatic dise ase. There is increased uptake within the bilateral shoulder, bilateral knee, sternoclavicular, bilateral wrists/carpal bones, left ankle, right foot and ankle, and bilateral sacroiliac joints consistent wi th degenerative changes. Most pronounced within the bilateral SI joints, left ankle, bilateral wrists /carpal bones. No other photopenic areas or areas of increased activity are identified. Physiologic radiotracer activity is demonstrated in the kidneys and bladder. IMPRESSION: 1. Nothing to suggest metastatic disease. 2. Multi joint radiotracer uptake consistent with degenerative changes as described above. [facility], , 07/05/2024 12:31 PM
== END | disposition home or self-care (01) ==
LOC: RADNMMAIN 07:21
PROVIDERS: ATTEND Internal Medicine
DX: M19.90 Unspecified osteoarthritis, unspecified site (principal)
CPT/HCPCS: 78306; A9503

== ENCOUNTER → 2024-08-03 | Outpatient (CLI) | payer OTHER ==
[2024-08-03 10:17] LABS: INR 0.9 (<1.2); Partial Thromboplastin Time 26.7 sec (22.0-30.0); Prothrombin Time 10.2 sec (10.0-12.5)
[2024-08-03 15:21] LABS: HCT 41.9 % (39.6-50.0); HGB 13.1 g/dL (13.0-17.0); MCH 27.2 pg (27.0-32.0); MCHC 31.3 g/dL (32.0-37.0); MCV 87.1 FL (80.0-97.0); Mean Platelet Volume 9.9 FL (9.5-12.2); NRBC Per 100 WBC 0 X 10*3/uL (0.00-0.01); Platelet Count 683 X 10*3/uL (140-440); RBC 4.81 X 10*6/uL (4.40-5.60); RDW 15.8 % (11.5-14.5)
[2024-08-03 16:04] LABS: BUN/Creat Ratio 13.38 Ratio (12.00-20.00); Blood Urea Nitrogen 10.7 mg/dL (9.0-27.0); Carbon Dioxide 22.5 mmol/L (21.6-31.8); Chloride 102 mmol/L (96-109); Glucose 116 mg/dL (70-110); Potassium 5.2 mmol/L (3.5-5.5); Sodium 138 mmol/L (135-145)
[2024-08-03 16:05] LABS: ALT 37 U/L (10-49); AST 21 U/L (14-35); Albumin 3.9 g/dL (3.8-4.9); Albumin/Globulin Ratio 1.15 Ratio (1.60-3.17); Alkaline Phosphatase 283 U/L (41-126); Calcium 10.1 mg/dL (8.7-10.3); Globulin 3.4 g/dL (1.6-3.3); Total Bilirubin 0.3 mg/dL (0.3-1.2); Total Protein 7.3 g/dL (6.2-8.2)
== END | disposition home or self-care (01) ==
LOC: LABWHC1 09:09
PROVIDERS: ATTEND Orthopaedic Surgery
DX: Z01.812 Encounter for preprocedural laboratory examination (principal); Z22.322 Carrier or suspected carrier of Methicillin resistant Staphylococcus aureus; E11.9 Type 2 diabetes mellitus without complications; M16.11 Unilateral primary osteoarthritis, right hip
CPT/HCPCS: 36415; 80053; 83036; 85027; 85610; 85730; 86850; 86900; 86901; 87070

== ENCOUNTER 2024-08-11 05:42 | Day surgery (SDC) | payer OTHER ==
[2024-08-11] MEDS ORDERED: TRANEXAMIC 1,000 MG/100ML-NACL 1,000 MG in SALINE 1 100ML.BAG IVPB PRN (06:00)
[2024-08-11] MEDS ORDERED: TRANEXAMIC 1,000 MG/100ML-NACL 1,000 MG in SALINE 1 100ML.BAG IV PRN (06:00)
[2024-08-11] MEDS: LACTATED RINGERS 1,000 ML IV ONE ×2 (06:19→08:13)
[2024-08-11] MEDS: DOCUSATE 100 MG CAP PO PRN (06:20)
[2024-08-11] MEDS: ACETAMINOPHEN TAB 500 MG TAB PO PRN (06:21)
[2024-08-11] MEDS: oxyCODONE ER 10 MG TAB.ER.12H PO PRN (06:21)
[2024-08-11] MEDS: DEXAMETHASONE SOD PHOSPHATE 10 MG/ML 1 ML VIAL IV PRN (06:22)
[2024-08-11] MEDS: FAMOTIDINE 20 MG/2 ML VIAL IVP PRN (06:23)
[2024-08-11] MEDS: ONDANSETRON 4 MG/2 ML VIAL IVP PRN (06:23)
[2024-08-11] MEDS: KETOROLAC 15 MG/ML 1 ML VIAL IVP PRN (06:24)
[2024-08-11] MEDS: fentaNYL (PF) 50 MCG/ML 2 ML AMP IVP ONE (06:43)
[2024-08-11] MEDS: MIDAZOLAM 2 MG/2 ML VIAL IVP ONE (06:43)
--- NOTE | 2024-08-11 06:59 | P.HPOR ---
History of Present Illness H&P Date: 08/11/24 Patient presents with severe right hip pain secondary to arthritis. He has failed nonsurgical treatment. Past Medical History Past Medical History: GERD/Reflux, Hyperlipidemia, Hypertension, Liver Disease, Osteoarthritis (OA), Pneumonia Additional Past Medical History / Comment(s): arthritis, fluid build up in lungs took anbx 07/2023 , fluid build up around heart 06/2023. fatty liver disease History of Any Multi-Drug Resistant Organisms: None Reported Additional Past Surgical History / Comment(s): corrective srugery to mouth and throat as a child, PAIN CLINIC PROCEDURES Past Anesthesia/Blood Transfusion Reactions: No Reported Reaction Smoking Status: Current every day smoker - Past Family History Father Family Medical History: Coronary Artery Disease (CAD), Myocardial Infarction (ND) Additional Family Medical History / Comment(s): Medications and Allergies Home Medications Medication Instructions Recorded Confirmed Type Colchicine [Colcrys] 0.6 mg PO BID 12/02/23 08/08/24 History Indomethacin [Indocin] 50 mg PO BID 12/02/23 08/08/24 History Pantoprazole [Protonix] 40 mg PO DAILY 12/02/23 08/08/24 History Rosuvastatin Calcium [Crestor] 5 mg PO DAILY 12/02/23 08/08/24 History amLODIPine [Norvasc] 5 mg PO DAILY 12/02/23 08/08/24 History Ibuprofen [Motrin Ib] 800 mg PO Q8H PRN 12/10/23 08/08/24 History Diclofenac Sodium Gel [Voltaren 1% 100 gm TOPICAL DAILY PRN 01/06/24 08/08/24 History Gel] HYDROcodone/APAP 10-325MG [[place] 1 tab PO TID PRN 30 Days #90 tab 05/25/24 08/08/24 Rx 10-325] Gabapentin [Neurontin] 300 mg PO TID 30 Days #90 cap 07/19/24 08/08/24 Rx tiZANidine [Zanaflex] 4 mg PO TID PRN 30 Days #90 tab 07/19/24 08/08/24 Rx Lidocaine 4% Patch 1 patch TOPICAL DAILY PRN 08/08/24 08/08/24 History [place] Carbonate 300 mg PO DAILY 08/08/24 08/08/24 History Mupirocin 2% Oint [Bactroban 2% 1 applic NASAL DIRECTED 08/08/24 08/08/24 History Oint] buPROPion XL [Wellbutrin XL] 300 mg PO DAILY 08/08/24 08/08/24 History busPIRone HCL 30 mg PO DAILY 08/08/24 08/08/24 History risperiDONE [RisperDAL] 2 mg PO DAILY 08/08/24 08/08/24 History Allergies Allergy/AdvReac Type Severity Reaction Status Date / Time lamotrigine [From Lamictal] AdvReac Itching Verified 08/11/24 05:53 Physical Examination Exam is unchanged. The patient is alert. He has pain with passive range of motion of the right hip. Motor and sensory function is intact in the right leg. Results Severe right hip arthritis Assessment and Plan Assessment: Severe right hip arthritis Plan: Patient presents today for elective right total hip replacement. Risks and complications were discussed with the patient in the office. He is well aware of this.
[2024-08-11] MEDS ORDERED: SUCCINYLCHOLINE CHLORIDE 200 MG/10 ML VIAL IV ONE (07:00)
[2024-08-11] MEDS ORDERED: NEOSTIGMINE 1 MG/ML 10 ML VIAL ONE (07:00)
[2024-08-11] MEDS ORDERED: LIDOCAINE 1% INJ 10MG/ML (20 ML MDV) ONE (07:00)
[2024-08-11] MEDS ORDERED: DEXAMETHASONE SOD PHOSPHATE 4 MG/ML 1 ML VIAL ONE (07:00)
[2024-08-11] MEDS ORDERED: PHENYLEPHRINE-0.9% NACL SYG 1,000 MCG/10 ML SYRINGE ONE (07:00)
[2024-08-11] MEDS ORDERED: GLYCOPYRROLATE 0.2 MG/ML 2 ML VIAL ONE (07:00)
[2024-08-11] MEDS ORDERED: HYDROmorphone 0.5 MG/0.5 ML SYRINGE IVP PRN ×3 (07:00→08:42)
[2024-08-11] MEDS ORDERED: fentaNYL (PF) 50 MCG/ML 2 ML AMP ONE (07:00)
[2024-08-11] MEDS ORDERED: PROPOFOL 10 MG/ML 20 ML VIAL IV ONE (07:00)
[2024-08-11] MEDS ORDERED: MIDAZOLAM 2 MG/2 ML VIAL IV PRN (07:00)
[2024-08-11] MEDS ORDERED: ROCURONIUM 10 MG/ML (5 ML VIAL) IV ONE (07:00)
[2024-08-11] MEDS ORDERED: TRANEXAMIC 1,000 MG/100ML-NACL PREMIX BAG ONE (07:00)
[2024-08-11] MEDS ORDERED: MIDAZOLAM 2 MG/2 ML VIAL ONE (07:00)
[2024-08-11] MEDS ORDERED: ROPIVACAINE 5 MG/ML 30 ML VIAL ONE (07:00)
[2024-08-11] MEDS ORDERED: KETAMINE HCL IN 0.9 % NACL 50 MG/5 ML SYRINGE ONE (07:00)
[2024-08-11] MEDS ORDERED: VANCOMYCIN IV PER PHARMACY 1 EACH MISC MISCELLANE PRN (07:14)
[2024-08-11] MEDS: VANCOMYCIN 1,250 MG in SODIUM CHLORIDE 0.9% 250 ML IVPB PRN (07:35)
[2024-08-11] MEDS: ROPIVACAINE/EPI/CLONIDINE/KET 50 ML SYRINGE MISCELLANE PRN (07:46)
[2024-08-11] MEDS: VANCOMYCIN 1,000 MG VIAL MISCELLANE ONE (08:25)
[2024-08-11] MEDS ORDERED: HYDROmorphone 1 MG/ML 1 ML SYRINGE IVP PRN (08:42)
[2024-08-11] MEDS ORDERED: HYDROcodone/APAP 5-325MG 1 EACH TAB PO PRN (08:42)
[2024-08-11] MEDS ORDERED: TEMAZEPAM 15 MG CAP PO PRN (08:42)
[2024-08-11] MEDS ORDERED: hydrOXYzine pamoate 25 MG CAP PO PRN (08:42)
[2024-08-11] MEDS ORDERED: MAGNESIUM HYDROXIDE 2,400 MG/30 ML CUP PO PRN (08:42)
[2024-08-11] MEDS ORDERED: NALOXONE 0.4 MG/ML 1 ML VIAL IV PRN (08:42)
[2024-08-11] MEDS ORDERED: diazePAM 5 MG TAB PO PRN ×2 (08:42)
--- NOTE | 2024-08-11 08:42 | P.OP ---
Date of Procedure: 08/11/24 Preoperative Diagnosis: 1. Severe right hip arthritis, possible AVN and collapse 2. Current everyday cigarette smoker Postoperative Diagnosis: 1. Severe right hip arthritis with likely avascular necrosis and collapse of the femoral head 2. Current everyday cigarette smoker Procedure(s) Performed: Right direct anterior total hip arthroplasty Implants: 1. Hope Trident II Acetabular Cup, Size #54 2. Hope Insignia Size #6 Femoral Stem, Standard Offset 3. Biolox delta femoral head, 36 mm, - 2.5 mm neck Anesthesia: CURTIS, regional Surgeon: Syed Preciado Senior Project Manager #1: Jn Ortiz Estimated Blood Loss (ml): 300 IV fluids (ml): 800 Pathology: none sent Condition: stable Disposition: PACU Indications for Procedure: The patient is a very pleasant 49-year-old male who had incapacitating right hip pain and presented to my office. His x-rays showed severe arthritic changes with likely collapse of the femoral head from presumed avascular necrosis. He was incapacitated by pain and had a difficult time walking. He was a current cigarette smoker and I counseled him about the elevated risk of infection. Due to the severity of his arthritis and collapse of the femoral head I felt that his need for surgery was no longer elective due to the collapse of the femoral head despite his smoking. I strongly advised him to quit smoking. He understands his elevated risk of complication particularly delayed wound healing and infection. Due to his severe and incapacitating pain he excepted a slightly higher risk of complication and agreed to proceed with surgery. I strongly recommended that he quit smoking. I had a long discussion with the patient in the office on the potential risks and complications of an elective total hip replacement through a direct anterior approach. Risks discussed include, but are certainly not limited to, risks from anesthesia, superficial infection requiring local wound care or antibiotics, deep evelyn-prosthetic joint infection and the treatment required to eradicate infection, intraoperative fracture, postoperative periprosthetic fracture, damage to local blood vessels or nerves particularly the lateral femoral cutaneous nerve, delayed wound healing requiring local wound care or possibly surgical debridement, hip dislocation, leg length discrepancy, soft tissue irritation around the total hip implant such as iliopsoas tendinitis or troch anteric bursitis, wear and osteolysis from the implants, squeaking or audible noises, groin pain, thigh pain, heterotopic ossification, stiffness, aseptic loosening of the implants, dissatisfaction with surgical outcome, need for revision surgery, DVT, PE, swelling of the operative extremity, acute coronary event, stroke, failure to thrive, and possibly loss of life or limb. The patient understands that while these are the most common complications after an elective hip replacement there are certainly other less common complications possible. They were given ample time to ask questions regarding the potential complications of a hip replacement. Following our discussion the patient provided their verbal and written consent to go forward with an elective total hip replacement. Operative Findings: Severe arthritic changes throughout the femoral head and acetabulum. There was a large area of collapse of the femoral head consistent with avascular necrosis. Description of Procedure: The patient was identified in the preoperative holding area and the correct hip was marked with my initials. I reviewed the procedure and consent with the patient. All of their questions were answered. The patient was then brought back into the operating room by anesthesia. While on the [facility] anesthesia was administered by the anesthesia team. Preoperative antibiotics and tranexamic acid were also given. After the patient was under anesthesia I examined their ankles to determine their preoperative leg length discrepancy. The skin over the anterior aspect of the hip was shaved to remove hair over the site of planned incision. Both feet and ankles were padded with webril and boots for the Duffield were applied. The patient was then carefully transferred onto the Duffield table. A perineal post was immediately placed. The arms were placed on arm holders and were well-padded. Both boots were secured to the spars on the Duffield table. The patient was positioned so that the pelvis was centered over the post. Nonsterile drapes were applied. A timeout was performed identifying the correct patient, operative extremity, and procedure. At this point fluoroscopy was brought in to take preoperative images of the pelvis and operative hip. Using the standing AP pelvis from the office as a template, a comparable image was obtained with fluoroscopy. A metallic bar was used to create a bi-ischial line for use as a reference to leg length adjustments during the procedure. Global offset was also measured on both the operative and nonoperative leg. Fluoroscopy was then brought out and a pre-scrub using a chlorhexidine scrub brush was performed. The operative limb was then prepped and draped in the standard sterile fashion. An anterior longitudinal incision was made lateral and distal to the ASIS. The skin and subcutaneous tissues were incised sharply. The underlying tensor fascia was identified and incised in its midportion. The fascia was dissected free from the underlying muscle and the muscle belly was retracted. A blunt tipped cobra retractor was placed over the superior neck under the muscle fibers of the gluteus minimus. The deep enveloping fascia of the tensor was incised. The anterior leash of vessels were then identified and cauterized. The fascia between the rectus and the capsule was then incised and the pre-capsular fat was excised. A second Cobra was placed inferior to the neck. The interval between the rectus and iliocapsularis and the hip capsule was developed and a retractor was placed carefully over the anterior rim of the acetabulum. A T-shaped anterior capsulotomy was performed. The superior capsular leaflet was left in place in the inferior capsular flap was excised. The Cobra retractors were placed intracapsularly. We then made a femoral neck osteotomy according to preoperative and intraoperative templating and confirmed the level of the osteotomy using fluoroscopic imaging. The femoral head was removed, passed off to the back table, and sized. The superior capsular flap was excised. Retractors were placed circumferentially exposing the acetabulum. We then circumferentially debrided the acetabulum free of labrum and osteophytes. The pulvinar was removed to fully visualize the cotyloid fossa. We then sequentially reamed to achieve peripheral fit and excellent bleeding subchondral bone. The socket was thoroughly irrigated. The acetabular component was impacted into the appropriate position using fluoroscopy to guide version, inclination, and depth of insertion taking care to have a comparable image of the AP pelvis to the standing image taken in the office. An excellent press-fit was achieved and final position was confirmed using fluoroscopy. The press fit was augmented with a bony cancellus dome screw. The liner was then impacted into the socket. Attention was then turned to the femur. The remnant dorsal lateral capsule was excised. The short external rotators were visible and protected. A bone hook was used to confirm appropriate translation of the trochanter away from the acetabulum. The leg was then extended and adducted and the bone hook was used to elevate the femur for broaching. A box osteotome and blunt tipped canal sound was then utilized to gain access to the femoral canal. We then sequentially broached the femur in appropriate anteversion until excellent torsional stability was achieved. The neck cut was brought flush to the trial broach with a calcar planar. A trial neck and head were then placed onto the broach and the hip was atraumatically reduced under direct visualization. External rotation to 90 was performed to assess stability. Fluoroscopy was brought in. An AP and lateral fluoroscopic image of the proximal femur was obtained to assess position and fill of the trial broach. An AP of the pelvis was then obtained and matched to the preoperative image taken. A bi-ischial bar was then placed and measurements were taken to assess changes in length and offset. The hip was then carefully dislocated, the proximal femur was exposed, and the trial implants were removed. The wound and proximal femur was thoroughly irrigated using sterile saline and pulsatile lavage. The final femoral implant was dispensed and gently tapped into place generating an excellent press-fit. The trunnion was cleansed and the final head was tapped into place to engage the Wei taper. The acetabulum was irrigated and visualized to be free of debris. The hip was carefully reduced. Stability was checked clinically with external rotation to 90 and there was no evidence of instability. Final fluoroscopic images were taken. The wound was then thoroughly irrigated and soaked with a dilute Betadine rinse for 3 minutes. 3 L of sterile saline was irrigated through the wound using pulsatile lavage. Local anesthetic cocktail was injected into the soft tissues around the surgical field. The wound was then closed in layers. A sterile dressing was placed over the surgical incision. The drapes were taken down and the patient was carefully transferred off of the Duffield table. Following removal of the boots the leg lengths felt acceptable. The patient was then taken to recovery room having tolerated the procedure well. Jn Ortiz PA-C was required as a skilled inventory assistant due to the complexity of surgery for patient positioning, draping, exposure, retraction, closure of wound and application of dressing. PLAN: The patient can weight-bear as tolerated on the operative extremity. 2 doses of postoperative antibiotics followed by oral doxycycline until his incision heals. DVT prophylaxis with aspirin 81 mg twice a day based on preoperative risk stratification. Physical therapy for gait training.
--- NOTE | 2024-08-11 09:00 | FL ---
EXAMINATION TYPE: FL guidance operating room, XR Hip Limited RT DATE OF EXAM: 08/11/2024 CLINICAL HISTORY: Right hip pain and osteoarthritis TECHNIQUE: Fluoroscopy. Limited intraoperative views right hip. COMPARISON: Pelvic and bilateral hip x-rays May 19, 2024. FINDINGS: Fluoroscopic guidance was provided during right hip replacement procedure performed by Dr. Preciado. A total of 30.2 seconds of fluoroscopic time was utilized during the procedure and 6 spot images was acquired. Total dose area product (DAP) in uGy*m?, mGy*cm? (or similar: 1.7616. Intraoperative images show metallic hardware from total right hip arthroplasty satisfactory in positi on on frontal projection after surgical replacement. IMPRESSION: As Above. [facility], , 08/11/2024 8:57 AM
[2024-08-11] MEDS: LACTATED RINGERS 1,000 ML IV SCH (09:45)
[2024-08-11] MEDS: SODIUM CHLORIDE 0.9% 1,000 ML IV SCH (09:45)
[2024-08-11 12:28] VITALS: RESP 18
--- NOTE | 2024-08-11 13:34 | P.ANPRN ---
Procedure Note - Anesthesia - Nerve Block Performed Right [place] Single Time Out Performed: Yes ([id number]) Date of Procedure: 08/11/24 Procedure Start Time: 06:44 Procedure Stop Time: 06:51 Location of Patient: PreOp Indication: Acute Post-Operative Pain, Requested by Surgeon Specifically requested for management of pain by DrEzequiel: Syed Preciado Sedation Type: Sedate with meaningful contact maintained Preparation: Sterile Prep Position: Supine Catheter: None Needle Types: Pajunk Needle Gauge: 21 Ultrasound used to visualize needle placement: Yes Ultrasound used to observe medication spread: Yes Injectate: 0.5% Ropivacaine (see comment for volume) ([id number]) Blood Aspirated: No Pain Paresthesia on Injection Noted: No Resistance on Injection: Normal Image Stored and Saved: Yes Events: Uneventful and Well Tolerated
[2024-08-11] MEDS ORDERED: tiZANidine 4 MG TAB PO PRN (15:16)
[2024-08-11] MEDS: HYDROcodone/APAP 10-325MG 1 EACH TAB PO PRN (15:36)
[2024-08-11] MEDS: GABAPENTIN 300 MG CAP PO SCH (15:36)
[2024-08-11] MEDS: SENNOSIDES-DOCUSATE SODIUM 1 EACH TAB PO SCH (20:58)
[2024-08-11] MEDS: ASPIRIN 81 MG PO SCH (20:58)
[2024-08-11] MEDS: COLCHICINE 0.6 MG EACH PO SCH (20:58)
[2024-08-12 02:54] VITALS: TEMP 98.3
[2024-08-12] MEDS: PANTOPRAZOLE 40 MG TABLET PO SCH (06:34)
--- NOTE | 2024-08-12 07:39 | P.PN ---
Subjective Patient is doing relatively well. His pain is controlled. He is having some numbness and weakness in his knee which is affected his gait. Objective - Vital Signs Vital signs: Vital Signs Temp 98.3 F 08/12/24 02:00 Pulse 65 08/12/24 02:00 Resp 18 08/12/24 02:00 BP 110/72 08/12/24 02:00 Pulse Ox 94 L 08/12/24 02:00 FiO2 Intake & Output 08/11/24 08/12/24 08/12/24 18:59 06:59 18:59 Intake Total 1950 237 Output Total 700 700 Balance 1250 -463 Weight 88.8 kg Intake: IV 1750 Oral 200 237 Output: Urine 400 700 Estimated Blood Loss 300 Other: Voiding Method Toilet Urinal # Voids 2 - Exam Patient is resting comfortably in bed. He is alert and able to answer questions. The dressing over his hip is intact. Femoral nerve function is intact. He is able to actively plantarflex and dorsiflex his ankle and his toes. Assessment and Plan Assessment: Postoperative day #1 status post right direct anterior total hip replacement Plan: 1. Weightbearing as tolerated on the operative extremity. Up with assistance and a walker. 2. DVT prophylaxis with aspirin 81 mg twice a day 3. Physical therapy for gait training and mobilization 4. Leave surgical dressing in place. 5. Internal medicine for perioperative medical management 6. Disposition: I would like to see how the patient does with physical therapy. If the numbness and weakness in his knee resolves he can discharge home later today. His exam is benign and he has full motor function in the right leg. If he needs to stay another 24 to 48 hours for observation we can do that as well.
[2024-08-12] MEDS: buPROPion XL 300 MG TAB.ER.24H PO SCH (08:41)
[2024-08-12] MEDS: ATORVASTATIN 10 MG TAB PO SCH (08:41)
[2024-08-12] MEDS: MULTIVITAMINS, THERA 1 EACH TAB PO SCH (08:41)
[2024-08-12] MEDS: busPIRone HCl 10 MG TAB PO SCH (08:41)
[2024-08-12] MEDS: LITHIUM CARBONATE 300 MG CAP PO SCH (08:41)
[2024-08-12] MEDS: amLODIPine 5 MG TAB PO SCH (08:41)
[2024-08-12] MEDS: risperiDONE 2 MG TAB PO SCH (08:41)
[2024-08-12 08:42] VITALS: BP 118/73; PULSE 64
--- NOTE | 2024-08-12 09:24 | P.CONS ---
History of Present Illness - Reason for Consult Consult date: 08/11/24 Medical management Requesting physician: Syed Preciado - Chief Complaint Status post direct right anterior total hip arthroplasty. - History of Present Illness HISTORY OF PRESENT ILLNESS: This is a 49-year-old male with a previous medical history significant for hypertension and hypertensive cardiovascular disease, mixed hyperlipidemia, fatty liver, GERD, pericarditis, carpal tunnel syndrome, spondylosis of the cervical spine without myelopathy, posttraumatic stress disorder, major depressive disorder with psychotic feature, antisocial personality disorder, al coholism, patient underwent right anterior direct hip arthroplasty that was done by Dr. Preciado for avascular necrosis of the left hip we were asked to see the patient for postoperative medical management, patient is laying down in bed in no apparent distress, he denies any chest pain, shortness of breath, he has no abdominal pain, nausea vomiting or diarrhea. REVIEW OF SYSTEMS: Constitutional: No documented fever, no chills, no night sweats. No weight change. No weakness, fatigue or lethargy. No daytime sleepiness. EENT: No headache. No blurred vision or double vision, no loss of vision. No loss of Hearing, no ringing in the ears, no dizziness. No nasal drainage or congestion. No epistaxis. No sore throat. Lungs: No shortness of breath, no cough, no sputum production. No wheezing. Reports dyspnea with activity. Cardiovascular: No chest pain, no lower extremity edema. No palpitations. No paroxysmal nocturnal dyspnea. No orthopnea. No lightheadedness or dizziness. No syncopal episodes. Abdominal: Reports no abdominal pain. No nausea, vomiting. No diarrhea. No constipation. No bloody or tarry stools reports loss of appetite. Genitourinary: No dysuria, increased frequency, urgency. No urinary retention. Musculoskeletal: No myalgias. No muscle weakness, no gait dysfunction, no frequent falls. No back pain. positive for neck pain and right hip pain Integumentary: No wounds, no lesions. No rash or pruritus. No unusual bruising. No change in hair or nails. Neurologic: No aphasia. No facial droop. No change in mentation. No head injury. No headache. No paralysis. No paresthesia. Psychiatric: positive for depression Anxiety and mood swings Endocrine: No abnormal blood sugars. No weight change. PAST MEDICAL HISTORY: Hypertension and hypertensive cardiovascular disease. Mixed hyperlipidemia. GERD. Alcoholic fatty liver disease. Spondylosis of the cervical spine without myelopathy Carpal tunnel syndrome. Osteoarthritis. Avascular necrosis of the left hip. Posttraumatic stress disorder. Major depressive disorder with psychotic feature Antisocial personality disorder Recurrent pericarditis. PAST SURGICAL HISTORY: Direct anterior left total hip arthroplasty 08/11/2024 Tonsillectomy Throat surgery. SOCIAL HISTORY: Patient smokes about half a pack every day he has been smoking since he was 17-year-old, he drinks alcohol on regular basis, he denies any drug use or abuse, FAMILY HISTORY: Father at age of 52 from myocardial infarction, mother is alive 68-year-old with history of kidney disease, patient has 1 brother alive at 45-year-old, patient has 2 sisters 47 and 49 1 with type 1 diabetes maternal uncle from pancreatic cancer PHYSICAL EXAMINATION: General: 49-year-old male laying down in bed in no apparent distress HEENT: Head is atraumatic, normocephalic, pupils were equal round reactive to light and recommendation, extraocular muscle movement were intact, sclera nonicteric, conjunctivae were pale, mucous membranes of the mouth are somewhat dry. Neck: Supple, no JVP, normal carotid upstroke bilaterally, no lymphadenopathy. Chest: Decreased breath sounds at the bases, few rhonchi, no expiratory wheezes, no chest wall tenderness, no intercostal retractions. Heart: First heart sound is normal, second heart sounds normal Abdomen: Soft, nontender, nondistended, positive bowel sounds. Extremities: There is no edema no calf tenderness DP +2 bilaterally, right hip incision appears to be clean and intact. Neurologic examination: Patient is awake alert and oriented x3 , cranial nerves II-12 appear grossly intact, muscle power were 5 out of 5 in upper extremities and 5 out of 5 in bilateral lower extremities, deep tendon reflexes normal bilaterally. ASSESSMENT AND PLAN: 1. Postoperative day #0 status post right anterior direct total hip arthroplasty. Patient was instructed to use incentive spirometer, to reduce the incidence of atelectasis and healthcare associated pneumonia, continue current pain management as outlined by orthopedic surgery, continue DVT prophylaxis, early ambulation, patient would likely be discharged home in the next 24 hours. 2. Hypertension and hypertensive cardiovascular disease. Continue amlodipine 5 mg once every day, monitor the patient blood pressure very closely. 3. Mixed hyperlipidemia. Continue patient on rosuvastatin 5 mg once every day, Zetia 10 mg once every day, monitor lipid panel, keep LDL 55-70. 4. History of GERD with esophagitis. Continue patient on pantoprazole 40 mg orally once every day. 5. Chronic tobacco use and dependence. Smoking cessation and counseling start the patient on nicotine patch 14 mg once every day. 6. Recurrent pericarditis. Continue patient on colchicine 0.6 mg orally once every day. 7. Major depressive disorder with psychotic feature. Continue current psychotropic medication patient has been on Wellbutrin XL 300 mg once every day, Risperdal 2 mg orally once every day, continue also with BuSpar 15 mg orally twice every 8. Posttraumatic stress disorder as well as antisocial personality disorder continue with Wellbutrin XL 300 mg once every day, Risperdal 2 mg once every day, BuSpar 50 mg twice every day, lithium carbonate 600 mg orally once every day. Patient has been under the care of [facility]. 9. Spondylosis of the cervical spine without myelopathy. Continue gabapentin 300 mg orally 3 times every day, continue current pain management. 10. DVT prophylaxis. Continue patient on aspirin 81 mg orally twice every day, early ambulation. 11. GI prophylaxis. Continue Protonix 40 mg once every day. 12. Thank you for the consult we will follow the patient with you. Past Medical History Past Medical History: GERD/Reflux, Hyperlipidemia, Hypertension, Liver Disease, Osteoarthritis (OA), Pneumonia Additional Past Medical History / Comment(s): arthritis, fluid build up in lungs took anbx 07/2023 , fluid build up around heart 06/2023. fatty liver disease History of Any Multi-Drug Resistant Organisms: None Reported Additional Past Surgical History / Comment(s): corrective srugery to mouth and throat as a child, PAIN CLINIC PROCEDURES Past Anesthesia/Blood Transfusion Reactions: No Reported Reaction Past Psychological History: Anxiety, Depression, PTSD Smoking Status: Current every day smoker Past Alcohol Use History: Abuse, Heavy Additional Past Alcohol Use History / Comment(s): SMOKES 1 PPD SINCE AGE 10, instructed no smoking after midnight before procedure. Hx of ETOH abuse years ago greater than 10. OCCASIONAL ALCOHOL NOW - INSTRUCTED NO ALCOHOL day before procedure. down to once a week. Past Drug Use History: None Reported, Cocaine, Marijuana, Methamphetamine Additional Drug Use History / Comment(s): many years ago - NONE NOW - Past Family History Father Family Medical History: Coronary Artery Disease (CAD), Myocardial Infarction ([place]) Additional Family Medical History / Comment(s): Medications and Allergies Home Medications Medication Instructions Recorded Confirmed Type Colchicine [Colcrys] 0.6 mg PO BID 12/02/23 08/08/24 History Indomethacin [Indocin] 50 mg PO BID 12/02/23 08/08/24 History Pantoprazole [Protonix] 40 mg PO DAILY 12/02/23 08/08/24 History Rosuvastatin Calcium [Crestor] 5 mg PO DAILY 12/02/23 08/08/24 History amLODIPine [Norvasc] 5 mg PO DAILY 12/02/23 08/08/24 History Ibuprofen [Motrin Ib] 800 mg PO Q8H PRN 12/10/23 08/08/24 History Diclofenac Sodium Gel [Voltaren 1% 100 gm TOPICAL DAILY PRN 01/06/24 08/08/24 History Gel] HYDROcodone/APAP 10-325MG [Rew 1 tab PO TID PRN 30 Days #90 tab 05/25/24 08/08/24 Rx 10-325] Gabapentin [Neurontin] 300 mg PO TID 30 Days #90 cap 07/19/24 08/08/24 Rx tiZANidine [Zanaflex] 4 mg PO TID PRN 30 Days #90 tab 07/19/24 08/08/24 Rx Lidocaine 4% Patch 1 patch TOPICAL DAILY PRN 08/08/24 08/08/24 History Placedo Carbonate 300 mg PO DAILY 08/08/24 08/08/24 History Mupirocin 2% Oint [Bactroban 2% 1 applic NASAL DIRECTED 08/08/24 08/08/24 History Oint] buPROPion XL [Wellbutrin XL] 300 mg PO DAILY 08/08/24 08/08/24 History busPIRone HCL 30 mg PO DAILY 08/08/24 08/08/24 History risperiDONE [RisperDAL] 2 mg PO DAILY 08/08/24 08/08/24 History Allergies Allergy/AdvReac Type Severity Reaction Status Date / Time lamotrigine [From Lamictal] AdvReac Itching Verified 08/11/24 05:53 Physical Exam Vitals: Vital Signs Temp Pulse Resp BP Pulse Ox 08/11/24 12:08 68 98/68 08/11/24 11:52 87 122/76 08/11/24 11:38 61 109/70 08/11/24 11:23 67 110/68 08/11/24 11:07 76 110/76 08/11/24 10:53 92 106/71 08/11/24 10:37 87 116/78 08/11/24 10:22 82 105/74 08/11/24 10:07 98.1 F 75 18 108/71 08/11/24 09:35 81 16 123/71 98 08/11/24 09:20 82 16 125/70 97 08/11/24 09:05 81 16 129/68 95 08/11/24 08:50 96.8 F L 90 12 138/72 99 08/11/24 06:50 93 16 104/81 98 08/11/24 06:08 97.8 F 99 16 122/77 97 Intake and Output 08/10/24 08/11/24 08/11/24 22:59 06:59 14:59 Intake Total 100 1750 Output Total 700 Balance 100 1050 Intake: IV 100 1750 Output: Urine 400 Estimated Blood Loss 300 Other: Weight 88.8 kg 88.8 kg
--- NOTE | 2024-08-12 09:57 | P.PN ---
Subjective Progress Note Date: 08/12/24 HISTORY OF PRESENT ILLNESS: This is a 49-year-old male with a previous medical history significant for hy pertension and hypertensive cardiovascular disease, mixed hyperlipidemia, fatty liver, GERD, pericarditis, carpal tunnel syndrome, spondylosis of the cervical spine without myelopathy, posttraumatic stress disorder, major depressive disorder with psychotic feature, antisocial personality disorder, alcoholism, patient underwent right anterior direct hip arthroplasty that was done by Dr. Preciado for avascular necrosis of the left hip we were asked to see the patient for postoperative medical management, patient is laying down in bed in no apparent distress, he denies any chest pain, shortness of breath, he has no abdominal pain, nausea vomiting or diarrhea. 08/12: Patient sitting up in bed in no apparent distress, he is utilizing incentive spirometer very well, he is moving around using a walker, he was seen earlier by physical therapy patient is able to go home today at this time, he is not having any issues he will continue current pain management, he will follow- up with me as an outpatient in the next 1 or 2 weeks he will follow-up with orthopedic surgery as recommended. REVIEW OF SYSTEMS: Constitutional: No documented fever, no chills, no night sweats. No weight change. No weakness, fatigue or lethargy. No daytime sleepiness. EENT: No headache. No blurred vision or double vision, no loss of vision. No loss of Hearing, no ringing in the ears, no dizziness. No nasal drainage or congestion. No epistaxis. No sore throat. Lungs: No shortness of breath, no cough, no sputum production. No wheezing. Reports dyspnea with activity. Cardiovascular: No chest pain, no lower extremity edema. No palpitations. No paroxysmal nocturnal dyspnea. No orthopnea. No lightheadedness or dizziness. No syncopal episodes. Abdominal: Reports no abdominal pain. No nausea, vomiting. No diarrhea. No constipation. No bloody or tarry stools reports loss of appetite. Genitourinary: No dysuria, increased frequency, urgency. No urinary retention. Musculoskeletal: No myalgias. No muscle weakness, no gait dysfunction, no frequent falls. No back pain. positive for neck pain and right hip pain Integumentary: No wounds, no lesions. No rash or pruritus. No unusual bruising. No change in hair or nails. Neurologic: No aphasia. No facial droop. No change in mentation. No head injury. No headache. No paralysis. No paresthesia. Psychiatric: positive for depression Anxiety and mood swings Endocrine: No abnormal blood sugars. No weight change. PHYSICAL EXAMINATION: General: 49-year-old male laying down in bed in no apparent distress HEENT: Head is atraumatic, normocephalic, pupils were equal round reactive to light and recommendation, extraocular muscle movement were intact, sclera nonicteric, conjunctivae were pale, mucous membranes of the mouth are somewhat dry. Neck: Supple, no JVP, normal carotid upstroke bilaterally, no lymphadenopathy. Chest: Decreased breath sounds at the bases, few rhonchi, no expiratory wheezes, no chest wall tenderness, no intercostal retractions. Heart: First heart sound is normal, second heart sounds normal Abdomen: Soft, nontender, nondistended, positive bowel sounds. Extremities: There is no edema no calf tenderness DP +2 bilaterally, right hip incision appears to be clean and intact. Neurologic examination: Patient is awake alert and oriented x3 , cranial nerves II-12 appear grossly intact, muscle power were 5 out of 5 in upper extremities and 5 out of 5 in bilateral lower extremities, deep tendon reflexes normal bilaterally. ASSESSMENT AND PLAN: 1. Postoperative day #1 status post right anterior direct total hip arthroplasty. Patient was instructed to use incentive spirometer, to reduce the incidence of atelectasis and healthcare associated pneumonia, continue current pain management as outlined by orthopedic surgery, continue DVT prophylaxis, early ambulation, patient would likely be discharged home in the next 24 hours. 2. Hypertension and hypertensive cardiovascular disease. Continue amlodipine 5 mg once every day, monitor the patient blood pressure very closely. 3. Mixed hyperlipidemia. Continue patient on rosuvastatin 5 mg once every day, Zetia 10 mg once every day, monitor lipid panel, keep LDL 55-70. 4. History of GERD with esophagitis. Continue patient on pantoprazole 40 mg orally once every day. 5. Chronic tobacco use and dependence. Smoking cessation and counseling start the patient on nicotine patch 14 mg once every day. 6. Recurrent pericarditis. Continue patient on colchicine 0.6 mg orally once every day. 7. Major depressive disorder with psychotic feature. Continue current psychotropic medication patient has been on Wellbutrin XL 300 mg once every day, Risperdal 2 mg orally once every day, continue also with BuSpar 15 mg orally twice every 8. Posttraumatic stress disorder as well as antisocial personality disorder continue with Wellbutrin XL 300 mg once every day, Risperdal 2 mg once every day, BuSpar 50 mg twice every day, lithium carbonate 600 mg orally once every day. Patient has been under the care of [facility]. 9. Spondylosis of the cervical spine without myelopathy. Continue gabapentin 300 mg orally 3 times every day, continue current pain management. 10. DVT prophylaxis. Continue patient on aspirin 81 mg orally twice every day, early ambulation. 11. GI prophylaxis. Continue Protonix 40 mg once every day. 12 patient is medically stable for discharge. Objective - Vital Signs Vital signs: Vital Signs Temp 98.3 F 08/12/24 02:00 Pulse 64 08/12/24 07:20 Resp 18 08/12/24 07:20 BP 118/73 08/12/24 07:20 Pulse Ox 97 08/12/24 07:20 FiO2 Intake & Output 08/11/24 08/12/24 08/12/24 18:59 06:59 18:59 Intake Total 1950 237 Output Total 700 700 Balance 1250 -463 Weight 88.8 kg Intake: IV 1750 Oral 200 237 Output: Urine 400 700 Estimated Blood Loss 300 Other: Voiding Method Toilet Urinal # Voids 2
[2024-08-12 11:15] LABS: BUN/Creat Ratio 20.25 Ratio (12.00-20.00); Blood Urea Nitrogen 16.2 mg/dL (9.0-27.0); Glucose 151 mg/dL (70-110)
[2024-08-12 11:16] LABS: ALT 28 U/L (10-49); AST 19 U/L (14-35); Albumin 3.1 g/dL (3.8-4.9); Albumin/Globulin Ratio 1.24 Ratio (1.60-3.17); Alkaline Phosphatase 177 U/L (41-126); Calcium 8.8 mg/dL (8.7-10.3); Carbon Dioxide 24.1 mmol/L (21.6-31.8); Chloride 109 mmol/L (96-109); Globulin 2.5 g/dL (1.6-3.3); Potassium 4.7 mmol/L (3.5-5.5); Sodium 142 mmol/L (135-145); Total Bilirubin <0.2 mg/dL (0.3-1.2); Total Protein 5.6 g/dL (6.2-8.2)
[2024-08-12 11:23] LABS: Basophils # (A) 0.03 X 10*3/uL (0.00-0.10); Basophils % (A) 0.2 %; Eosinophils # (A) 0.01 X 10*3/uL (0.04-0.35); Eosinophils % (A) 0.1 %; HCT 33.5 % (39.6-50.0); HGB 10.3 g/dL (13.0-17.0); Lymphocytes % (A) 10.8 %; MCH 27.4 pg (27.0-32.0); MCHC 30.7 g/dL (32.0-37.0); MCV 89.1 FL (80.0-97.0); Mean Platelet Volume 10.8 FL (9.5-12.2); Monocytes # (A) 1.34 X 10*3/uL (0.20-1.00); Monocytes % (A) 7.2 %; NRBC Per 100 WBC 0 X 10*3/uL (0.00-0.01); Neutrophils # (A) 15.08 X 10*3/uL (1.80-7.70); Neutrophils % (A) 81.2 %; Platelet Count 571 X 10*3/uL (140-440); RBC 3.76 X 10*6/uL (4.40-5.60); RDW 15.8 % (11.5-14.5); WBC 18.56 X 10*3/uL (4.50-10.00)
[2024-08-15 12:19] LABS: Lithium <0.10 mmol/L (0.50-1.20)
== END 2024-08-12 15:30 | disposition home health service (06) ==
LOC: OR 05:42 → 4SSUR 08:44 → OR 08-12 15:30
PROVIDERS: ATTEND Orthopaedic Surgery
DX: M16.11 Unilateral primary osteoarthritis, right hip (principal); E78.2 Mixed hyperlipidemia; F32.9 Major depressive disorder, single episode, unspecified; F43.10 Post-traumatic stress disorder, unspecified; F60.2 Antisocial personality disorder; G89.18 Other acute postprocedural pain; I11.9 Hypertensive heart disease without heart failure; I31.9 Disease of pericardium, unspecified; K76.0 Fatty (change of) liver, not elsewhere classified; K21.9 Gastro-esophageal reflux disease without esophagitis; F17.210 Nicotine dependence, cigarettes, uncomplicated; Z79.899 Other long term (current) drug therapy; Z90.89 Acquired absence of other organs
CPT/HCPCS: 27130; 97161; 64999; 80053; 80178; 85025; 73501; C1776; J2250; J3370; J0330; J1100 ×2; J2710; J0690 ×2; J2405; J2003; J3010; J3490; J2795; J1885; J2704; J2371; J1596

== ENCOUNTER → 2024-08-23 | Outpatient (CLI) | payer OTHER ==
[2024-08-23 13:53] VITALS: BP 122/83; PULSE 101; RESP 19; TEMP 98.6
--- NOTE | 2024-08-23 15:49 | P.PAINPG ---
Objective - Vital Signs Vital signs: Vital Signs Temp 98.6 F 08/23/24 13:50 Pulse 101 H 08/23/24 13:50 Resp 19 08/23/24 13:50 BP 122/83 08/23/24 13:50 Pulse Ox 97 08/23/24 13:50 FiO2 Intake & Output 08/22/24 08/23/24 08/23/24 18:59 06:59 18:59 Weight 92.986 kg PQRS Measure Charge Sheet Mode of Arrival: Ambulatory, Cane Comment: HISTORY OF PRESENT ILLNESS: A 49 yr old male presents today w severe and chronic neck & back pain > 6 mo secondary to BL Hip DJD, R Hip Avascular Necrosis, radiculopathy, spondylosis and facet arthropathy without myelopathy for evaluation. Pt underwent a BL RFA C4-C6 in Jan/Feb 2024 where he experienced 75 % pain relief x 6 mo s/p procedure. Pt states pain level is provoked at 6 /10 in intensity, constant, localized in the cervical spine, predominantly axial, burning in character without shooting pain. Pain is provoked by bending. Pain is alleviated by PT x 6 wks which ended in 2020 (cervical), physician guided home exercises every morning since 2020 (cervical, lumbar), use of a cane for ambulatory assistance, medications, repositioning and rest . Pt states he discontinued THC use for 1 month and doesn't plan on returning on cannabis. Interventional procedures include BL RFA C4-C5/C5-C6 (Feb 2024), TRINY L4-L5 x1 Medications include Neurontin 300mg #90. Discontinued Cannabis use. REVIEW OF ORGAN SYSTEMS: CONSTITUTIONAL: No fevers or chills. No recent weight loss. NEUROLOGICAL: + numbness and tingling along the distal extremities. No seizure disorders or headaches. MUSCULOSKELETAL: + pain PSYCHIATRIC: Denies current depression or suicidal thoughts. Physical Examinations : Constitutional : Cooperative , not in acute distress . Neurologic : Cranial nerve II to XII intact. No focal neurological deficits. Psychiatric : alert & oriented x 3. Matching mood & appropriate affect. Judgment & insight intact. Musculoskeletal : Cervical Spine Motor strength in the deltoid and biceps: Normal right side. Normal Left side Motor strength biceps and the wrist extensors: Normal right side . Normal left side Motor strength in the triceps muscle: Normal right side. Normal left side Deep tendon reflexes: Normal at the biceps. Normal at Brachioradialis. Normal at triceps Vertebral body tenderness to deep palpation over Cervical facet loading test: positive bilaterally C4-C5, C5-C6 Spurling test: positive bilaterally Neck distraction test: positive bilaterally Johnnie sign: positive bilaterally Lumbar spine Motor strength lower extremities ,thigh and legs 5/5 Right side , 5/5 Left side Deep tendon reflexes : Normal Knee Jerk. Normal Ankle Jerk Vertebral body tenderness over L4 Escalante Test positive BL L4-L5 Lumbar facet Loading Test: positive Right / positive Left Range of motion of the lumbar spine Flexion 30 degrees, extension 10 degrees Straight Leg Raise test: Left/ Right positive at degrees Anderson test: positive right / positive left. Severe tenderness over the Sacroiliac joint on the Right / Left sides Gaenslen test: positive bilaterally Seated flexion test: positive bilaterally. Sacral spine : Severe tenderness over the Sacroiliac joint: right side / left side Range of motion: Flexion of the lumbar spine <60 degrees Range of motion: Extension of the lumbar spine <20 degrees Gaenslen's Test positive Anderson test: positive right side / left side Thigh Thrust Test Sacral Thrust Test Imaging: X ray BL hip from 05/19/24 MRI non contrast cervical spine from 08/26/23 reviewed MRI non contrast lumbar spine from 03/28/24 reviewed Assessment/ Plan : Cervical radiculopathy, L4-L5 mild stenosis, R Hip DJF w Avascular Necrosis, L Hip DJD Recommendation of BL RFA C4-C5/ C5-C6 and medication management. Risks, benefits of procedure discussed and patient verbalized understanding. Protocol for discontinuation/continuation of medication surrounding procedure discussed. Minimal anesthesia including fentanyl and Versed if clinically indicated. UDS from 05/25/24 reviewed and consistent. Opiate/ narcotic agreement signed 08/23/24. [place] 10/325mg #120 w 1 RF. Use, side effects, adverse reactions, safe storage discussed. All questions answered. I have spent greater than 30 minutes on patient care today. Dr Lee was available by phone for the evaluation of this patient. The time was used to review the medical records including relevant urine studies and Prescription history (MAPs), review of the available imaging, evaluation and examination of the patient, coordination of care with the medical staff and if applicable referring physicians, as well as creation of the medical record - Pain Location Generalized Pharmacological Interventions: PRN Medication PQRS Narrative: Smoking Status Current every day smoker Blood Pressure 122/83 Pain Intensity [Generalized] 3 Scale Used Numeric (1 - 10) Hx Alcohol Use (MH) No Home Medications: Ambulatory Orders Colchicine [Colcrys] 0.6 mg PO BID 12/02/23 Indomethacin [Indocin] 50 mg PO BID 12/02/23 Pantoprazole [Protonix] 40 mg PO DAILY 12/02/23 Rosuvastatin Calcium [Crestor] 5 mg PO DAILY 12/02/23 amLODIPine [Norvasc] 5 mg PO DAILY 12/02/23 Diclofenac Sodium Gel [Voltaren 1% Gel] 100 gm TOPICAL DAILY PRN 01/06/24 Gabapentin [Neurontin] 300 mg PO TID 30 Days #90 cap 07/19/24 tiZANidine [Zanaflex] 4 mg PO TID PRN 30 Days #90 tab 07/19/24 Lidocaine 4% Patch 1 patch TOPICAL DAILY PRN 08/08/24 [place] Carbonate 300 mg PO DAILY 08/08/24 Mupirocin 2% Oint [Bactroban 2% Oint] 1 applic NASAL DIRECTED 08/08/24 buPROPion XL [Wellbutrin XL] 300 mg PO DAILY 08/08/24 busPIRone HCL 30 mg PO DAILY 08/08/24 risperiDONE [RisperDAL] 2 mg PO DAILY 08/08/24 Aspirin 81 mg PO BID tab 08/12/24 Doxycycline Monohydrate 100 mg PO BID #30 cap 08/12/24 Multivitamins, Thera [Multivitamin (formulary)] 1 each PO DAILY@1200 tab 08/12/24 Sennosides-Docusate Sodium [Senokot-S] 2 each PO HS tab 08/12/24 HYDROcodone/APAP 10-325MG [[place] 10-325] 1 tab PO QID PRN 30 Days #120 tab 08/23/24 HYDROcodone/APAP 10-325MG [[place] 10-325] 1 tab PO QID PRN 30 Days #120 tab 08/23/24 Controlled Substance Measures - Controlled Substance Measures Is patient prescribed a controlled substance at discharge?: Yes When asked, does pt state using other controlled substances?: No If prescribed controlled substance>3 days was MAPS reviewed?: Yes If Rx opioid, was Start Talking consent form obtained?: Yes Was information provided regarding opioid addiction?: Yes
== END ==
LOC: PNWHC3 13:15
PROVIDERS: ATTEND Specialist
DX: M54.16 Radiculopathy, lumbar region (principal); M54.12 Radiculopathy, cervical region; M48.061 Spinal stenosis, lumbar region without neurogenic claudication; M19.90 Unspecified osteoarthritis, unspecified site; F17.200 Nicotine dependence, unspecified, uncomplicated
CPT/HCPCS: 99211

== ENCOUNTER 2024-09-28 11:07 | Day surgery (SDC) | payer OTHER ==
[2024-09-14 08:29] VITALS: BMI 27.1
[2024-09-28] MEDS: IV FLUID CONTINUATION 1,000 ML IV ONE ×2 (12:02→12:53)
[2024-09-28 12:05] VITALS: TEMP 97.1
[2024-09-28] MEDS: LACTATED RINGERS 1,000 ML IV SCH (12:13)
[2024-09-28] MEDS ORDERED: MIDAZOLAM 2 MG/2 ML VIAL ONE (12:26)
[2024-09-28] MEDS ORDERED: methylPREDNISolone ACETATE 40 MG/ML 1 ML VIAL ONE (12:26)
[2024-09-28] MEDS ORDERED: ROPIVACAINE 5 MG/ML 30 ML VIAL ONE (12:26)
[2024-09-28] MEDS ORDERED: fentaNYL (PF) 50 MCG/ML 2 ML AMP ONE (12:26)
--- NOTE | 2024-09-28 12:49 | P.PCN ---
Date of Procedure: 09/28/24 Procedure(s) Performed: PREOPERATIVE DIAGNOSIS: Cervical spondylosis with Facet Arthropathy without myelopathy. POSTOPERATIVE DIAGNOSIS: Cervical spondylosis with Facet Arthropathy without myelopathy. PROCEDURES: Radiofrequency thermocoagulation,Right C4, C5, C6 medial branch with Fluroscopy [place](fluoroscopy was available in Radiology department ) (to denervate the facet joint at Right C4- 5 , C5- 6 ) ANESTHESIA: moderate sedation with fentanyl 100 micrograms and Versed 2 mg ( sedation started at 12:26 ,end at 12:47 ) EBL: Minimal PROCEDURE INDICATION: The patient with neck pain secondary to cervical arthropathy who had more than 50% relief of her pain with previous diagnostic cervical medial branch block. PROCEDURE DESCRIPTION / TECHNIQUE: The patient was seen and identified in the preoperative area. Risks, benefits, complications, and alternatives were discussed with the patient, the patient agreed to proceed with the procedure and signed the consent. IV was started. Vital signs remained stable throughout the procedure. Patient was taken to the OR and time out was completed. The patient was placed in the prone position on the procedure table. A pillow was placed under the patients chest to increase the cervical interlaminar space. The cervical area was prepped and draped in the usual sterile fashion. Critical pause was taken. Vital signs were closely monitored during the procedure. Conscious sedation was used during the procedure to decrease patients anxiety. Using cross-table lateral fluoroscopy, the centroid of the trapezoid of Right C4, C5, and C6 were identified, marked, and localized with 1% lidocaine. Subsequently, a 20 [id number] radiofrequency cannula with a 10-mm active tip was advanced guided by fluoroscopy to the centroid of the trapezoid of Right , C4, C5, and C6 . Needle tip position was confirmed at the centroid of the trapezoids of Right C4, C5, and C6 with anteroposterior fluoroscopy. Each site then underwent sensory testing at 50 Hz and 0 to 1 volt and motor testing at 2 Hz and 0 to 3 volt with local stimulation, but no radicular symptoms down the arm. Thereafter each sites underwent radiofrequency thermocoagulation at 80 degrees celsius for 90 seconds after injecting 0.5 ml of PF Ropivacaine 0.5 %. After thermocoagulation, 1 ml of the block solution containing Depo-Medrol 40 mg and 5 mL of preservative-free normal saline was injected at the Right C4, C5, and C6 levels after negative aspiration of CSF and blood and with no paresthesias. Cannulas were retracted while injecting lidocaine 1% until the needle is out. Skin was cleansed and bandages were applied. COMPLICATIONS: No acute complications. DISPOSITION / PLANS: The patient was placed in a supine position and transferred to the recovery area in a stable condition for observation and was discharged from the recovery room after meeting discharge criteria. Home discharge instructions given to the patient by the staff. The patient was reexamined prior to discharge. The patient will schedule a follow up in the clinic in 2-4 weeks.
[2024-09-28 13:13] VITALS: BP 96/59; PULSE 73; RESP 16
--- NOTE | 2024-09-28 13:32 | FL ---
Fluoroscopy INDICATION: Pain FINDINGS: Fluoroscopy time: 10.6 seconds. Total dose area product (DAP) in uGy*m?, mGy*cm? (or similar): [id number] Images obtained: 0. Images document the procedure. IMPRESSION: 1. Documentation of fluoroscopy. [facility], , 09/28/2024 1:30 PM
== END 2024-09-28 13:15 | disposition home or self-care (01) ==
LOC: ORPAIN 11:07
PROVIDERS: ATTEND Specialist
DX: M47.812 Spondylosis without myelopathy or radiculopathy, cervical region (principal)
CPT/HCPCS: 64633; 64634; J2250; J3010; J2795; J1010

== ENCOUNTER 2024-10-13 11:55 | Day surgery (SDC) | payer OTHER ==
[2024-10-11 09:26] VITALS: BMI 28.5
[2024-10-13 13:13] VITALS: TEMP 97.5
[2024-10-13] MEDS: LACTATED RINGERS 1,000 ML IV ONE (13:34)
[2024-10-13] MEDS: LACTATED RINGERS 1,000 ML IV SCH (13:34)
[2024-10-13] MEDS ORDERED: MIDAZOLAM 2 MG/2 ML VIAL ONE (14:00)
[2024-10-13] MEDS ORDERED: fentaNYL (PF) 50 MCG/ML 2 ML AMP ONE (14:00)
[2024-10-13] MEDS ORDERED: methylPREDNISolone ACETATE 40 MG/ML 1 ML VIAL ONE (14:00)
[2024-10-13] MEDS ORDERED: ROPIVACAINE 5 MG/ML 30 ML VIAL ONE (14:00)
--- NOTE | 2024-10-13 14:24 | P.PCN ---
Date of Procedure: 10/13/24 Procedure(s) Performed: PREOPERATIVE DIAGNOSIS: Cervical spondylosis with Facet Arthropathy without myelopathy. POSTOPERATIVE DIAGNOSIS: Cervical spondylosis with Facet Arthropathy without myelopathy. PROCEDURES: Radiofrequency thermocoagulation, Left C4, C5, C6 medial branch with Fluroscopy [place](fluoroscopy was available in Radiology department ) (to denervate the facet joint at Left C4- 5 , C5- 6 ) ANESTHESIA: moderate sedation with fentanyl 100 micrograms and Versed 2 mg ( sedation started at 14:00 ,end at 14:20 ) EBL: Minimal PROCEDURE INDICATION: The patient with neck pain secondary to cervical arthropathy who had more than 50% relief of her pain with previous diagnostic cervical medial branch block. PROCEDURE DESCRIPTION / TECHNIQUE: The patient was seen and identified in the preoperative area. Risks, benefits, complications, and alternatives were discussed with the patient, the patient agreed to proceed with the procedure and signed the consent. IV was started. Vital signs remained stable throughout the procedure. Patient was taken to the OR and time out was completed. The patient was placed in the prone position on the procedure table. A pillow was placed under the patients chest to increase the cervical interlaminar space. The cervical area was prepped and draped in the usual sterile fashion. Critical pause was taken. Vital signs were closely monitored during the procedure. Conscious sedation was used during the procedure to decrease patients anxiety. Using cross-table lateral fluoroscopy, the centroid of the trapezoid of Left C4, C5, and C6 were identified, marked, and localized with 1% lidocaine. Subsequently, a 20 [id number] radiofrequency cannula with a 10-mm active tip was advanced guided by fluoroscopy to the centroid of the trapezoid of Left , C4, C5, and C6 . Needle tip position was confirmed at the centroid of the trapezoids of Left C4, C5, and C6 with anteroposterior fluoroscopy. Each site then underwent sensory testing at 50 Hz and 0 to 1 volt and motor testing at 2 Hz and 0 to 3 volt with local stimulation, but no radicular symptoms down the arm. Thereafter each sites underwent radiofrequency thermocoagulation at 80 degrees celsius for 90 seconds after injecting 0.5 ml of PF Ropivacaine 0.5 %. A fter thermocoagulation, 1 ml of the block solution containing Depo-Medrol 40 mg and 5 mL of preservative-free normal saline was injected at the Left C4, C5, and C6 levels after negative aspiration of CSF and blood and with no paresthesias. Cannulas were retracted while injecting lidocaine 1% until the needle is out. Skin was cleansed and bandages were applied. COMPLICATIONS: No acute complications. DISPOSITION / PLANS: The patient was placed in a supine position and transferred to the recovery area in a stable condition for observation and was discharged from the recovery room after meeting discharge criteria. Home discharge instructions given to the patient by the staff. The patient was reexamined prior to discharge. The patient will schedule a follow up in the clinic in 2-4 weeks.
--- NOTE | 2024-10-13 14:28 | FL ---
EXAMINATION TYPE: FL guided pain mgmt statistic DATE OF EXAM: 10/13/2024 CLINICAL INDICATION: Male, 49 years old with history of Cerv Rad Freq; PHH, pain. TECHNIQUE: Fluoroscopy. COMPARISON: None. FINDINGS: Fluoroscopic guidance was provided during pain relief procedure performed by Dr. Lee . A total of 14.7 seconds of fluoroscopic time was utilized during the procedure and two spot images are acquired. Images acquired shows needle localization in the right aspect cervical spine. Multile harsh degenerative changes are present. Total DAP: [id number] mGym2. IMPRESSION: As Above. [facility], , 10/13/2024 2:26 PM
[2024-10-13] MEDS: IV FLUID CONTINUATION 600 ML IV ONE (14:34)
[2024-10-13 14:37] VITALS: RESP 16
[2024-10-13 14:53] VITALS: BP 117/89; PULSE 67
== END 2024-10-13 15:24 | disposition home or self-care (01) ==
LOC: ORPAIN 11:55
PROVIDERS: ATTEND Specialist
DX: M47.812 Spondylosis without myelopathy or radiculopathy, cervical region (principal); Z88.8 Allergy status to other drugs, medicaments and biological substances
CPT/HCPCS: 64633; 64634; J2250; J3010; J2795; J1010; 99152

== ENCOUNTER → 2024-11-01 | Outpatient (CLI) | payer OTHER ==
--- NOTE | 2024-11-01 17:19 | P.PN ---
Progress Note - Text Progress Note Date: 11/01/24 Provided UDS. 1 mo of medications e-scribed. Will reschedule.
== END ==
LOC: PNWHC3 13:33
PROVIDERS: ATTEND Specialist
DX: Z09 Encounter for follow-up examination after completed treatment for conditions other than malignant neoplasm (principal); F17.200 Nicotine dependence, unspecified, uncomplicated; F19.20 Other psychoactive substance dependence, uncomplicated; Z88.8 Allergy status to other drugs, medicaments and biological substances
CPT/HCPCS: 80307

== ENCOUNTER 2024-11-08 10:28 | Day surgery (SDC) | payer OTHER ==
[2024-11-03 12:09] VITALS: BMI 28.5
[~2024-11-08 10:28] MED LIST changes: +HYDROmorphone 0.5 MG/0.5 ML SYRINGE IVP PRN; -LACTATED RINGERS 1,000 ML IV SCH; +ONDANSETRON 4 MG/2 ML VIAL IVP PRN; +TRANEXAMIC 1,000 MG/100ML-NACL 1,000 MG in SALINE 1 100ML.BAG IV PRN; +TRANEXAMIC 1,000 MG/100ML-NACL 1,000 MG in SALINE 1 100ML.BAG IVPB PRN; +fentaNYL (PF) 50 MCG/ML 2 ML AMP IV PRN
[2024-11-08] MEDS: IV FLUID CONTINUATION 1,000 ML IV ONE (11:22)
[2024-11-08] MEDS: ACETAMINOPHEN TAB 500 MG TAB PO PRN (11:32)
[2024-11-08] MEDS: oxyCODONE ER 10 MG TAB.ER.12H PO PRN (11:33)
[2024-11-08] MEDS: DOCUSATE 100 MG CAP PO PRN (11:33)
[2024-11-08] MEDS: ONDANSETRON 4 MG/2 ML VIAL IVP ONE (11:33)
[2024-11-08] MEDS: DEXAMETHASONE SOD PHOSPHATE 10 MG/ML 1 ML VIAL IV PRN (11:33)
[2024-11-08] MEDS: KETOROLAC 15 MG/ML 1 ML VIAL IVP PRN (11:33)
[2024-11-08] MEDS: FAMOTIDINE 20 MG/2 ML VIAL IVP PRN (11:34)
[2024-11-08] MEDS: LACTATED RINGERS 1,000 ML IV SCH (11:42)
[2024-11-08] MEDS: MIDAZOLAM 2 MG/2 ML VIAL IV ONE (12:16)
[2024-11-08] MEDS ORDERED: ROCURONIUM 10 MG/ML (5 ML VIAL) IV ONE (12:28)
[2024-11-08] MEDS ORDERED: HYDROmorphone (PF) 1 MG/ML ONE (12:28)
[2024-11-08] MEDS ORDERED: GLYCOPYRROLATE 0.2 MG/ML 2 ML VIAL ONE (12:28)
[2024-11-08] MEDS ORDERED: fentaNYL (PF) 50 MCG/ML 2 ML AMP ONE (12:28)
[2024-11-08] MEDS ORDERED: NEOSTIGMINE 1 MG/ML 10 ML VIAL ONE (12:28)
[2024-11-08] MEDS ORDERED: KETAMINE HCL IN 0.9 % NACL 50 MG/5 ML SYRINGE ONE (12:28)
[2024-11-08] MEDS ORDERED: SUCCINYLCHOLINE CHLORIDE 200 MG/10 ML VIAL IV ONE (12:28)
[2024-11-08] MEDS ORDERED: ROPIVACAINE 5 MG/ML 30 ML VIAL ONE (12:28)
[2024-11-08] MEDS ORDERED: PROPOFOL 10 MG/ML 20 ML VIAL IV ONE (12:28)
[2024-11-08] MEDS ORDERED: TRANEXAMIC 1,000 MG/100ML-NACL PREMIX BAG ONE (12:28)
[2024-11-08] MEDS ORDERED: MIDAZOLAM 2 MG/2 ML VIAL ONE (12:28)
[2024-11-08] MEDS ORDERED: DEXAMETHASONE SOD PHOSPHATE 4 MG/ML 1 ML VIAL ONE (12:28)
[2024-11-08] MEDS: ceFAZolin 2 GM in DEXTROSE 5% IN WATER 50 ML IVPB PRN (12:30)
[2024-11-08] MEDS: ROPIVACAINE/EPI/CLONIDINE/KET 50 ML SYRINGE MISCELLANE PRN (13:07)
[2024-11-08] MEDS: LACTATED RINGERS 1,000 ML IV ONE (13:56)
--- NOTE | 2024-11-08 14:23 | P.OP ---
Date of Procedure: 11/08/24 Preoperative Diagnosis: 1. 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 Efra Trident II Acetabular Cup, Size #54 2. [place] Insignia Size #6 Femoral Stem, Standard Offset 3. Biolox delta femoral head, 36 mm, -5 mm neck Anesthesia: REJIA, regional Surgeon: Syed Preciado Dual Hose Cementer #1: Jn Ortiz Estimated Blood Loss (ml): 300 IV fluids (ml): 800 Pathology: none sent Condition: stable Disposition: PACU Indications for Procedure: I had a long discussion with the patient in the office on the potential risks and complications of an elective total hip replacement through a direct anterior approach. Risks discussed include, but are certainly not limited to, risks from anesthesia, superficial infection requiring local wound care or antibiotics, deep evelyn-prosthetic joint infection and the treatment required to eradicate infection, intraoperative fracture, postoperative periprosthetic fracture, damage to local blood vessels or nerves particularly the lateral femoral cutaneous nerve, delayed wound healing requiring local wound care or possibly surgical debridement, hip dislocation, leg length discrepancy, soft tissue irritation around the total hip implant such as iliopsoas tendinitis or trochanteric bursitis, wear and osteolysis from the implants, squeaking or audible noises, groin pain, thigh pain, heterotopic ossification, stiffness, aseptic loosening of the implants, dissatisfaction with surgical outcome, need for revision surgery, DVT, PE, swelling of the operative extremity, acute coronary event, stroke, failure to thrive, and possibly loss of life or limb. The patient understands that while these are the most common complications after an elective hip replacement there are certainly other less common complications possible. They were given ample time to ask questions regarding the potential complications of a hip replacement. Following our discussion the patient provided their verbal and written consent to go forward with an elective total hip replacement. Operative Findings: Severe arthritis of the left hip with avascular necrosis and partial collapse. Multiple loose bodies within the joint. Hypertrophied and inflamed synovium with large joint effusion. Description of Procedure: The patient was identified in the preoperative holding area and the correct hip was marked with my initials. I reviewed the procedure and consent with the patient. All of their questions were answered. The patient was then brought back into the operating room by anesthesia. While on the [facility] anesthesia was administered by the anesthesia team. Preoperative antibiotics and tranexamic acid were also given. After the patient was under anesthesia I examined their ankles to determine their preoperative leg length discrepancy. The skin over the anterior aspect of the hip was shaved to remove hair over the site of planned incision. Both feet and ankles were padded with webril and boots for the [place] were applied. The patient was then carefully transferred onto the [place] table. A perineal post was immediately placed. The arms were placed on arm holders and were well-padded. Both boots were secured to the spars on the [place] table. The patient was positioned so that the pelvis was centered over the post. Nonsterile drapes were applied. A timeout was performed identifying the correct patient, operative extremity, and procedure. At this point fluoroscopy was brought in to take preoperative images of the pelvis and operative hip. Using the standing AP pelvis from the office as a template, a comparable image was obtained with fluoroscopy. A metallic bar was used to create a bi-ischial line for use as a reference to leg length adjustments during the procedure. Global offset was also measured on both the operative and nonoperative leg. Fluoroscopy was then brought out and a pre-scrub using a chlorhexidine scrub brush was performed. The operative limb was then prepped and draped in the standard sterile fashion. An anterior longitudinal incision was made lateral and distal to the ASIS. The skin and subcutaneous tissues were incised sharply. The underlying tensor fascia was identified and incised in its midportion. The fascia was dissected free from the underlying muscle and the muscle belly was retracted. A blunt tipped cobra retractor was placed over the superior neck under the muscle fibers of the gluteus minimus. The deep enveloping fascia of the tensor was incised. The anterior leash of vessels were then identified and cauterized. The fascia between the rectus and the capsule was then incised and the pre-capsular fat was excised. A second Cobra was placed inferior to the neck. The interval between the rectus and iliocapsularis and the hip capsule was developed and a retractor was placed carefully over the anterior rim of the acetabulum. A T-shaped anterior capsulotomy was performed. The superior capsular leaflet was left in place in the inferior capsular flap was excised. The Cobra retractors were placed intracapsularly. We then made a femoral neck osteotomy according to preoperative and intraoperative templating and confirmed the level of the osteotomy using fluoroscopic imaging. The femoral head was removed, passed off to the back table, and sized. The superior capsular flap was excised. Retractors were placed circumferentially exposing the acetabulum. We then circumferentially debrided the acetabulum free of labrum and osteophytes. The pulvinar was removed to fully visualize the cotyloid fossa. We then sequentially reamed to achieve peripheral fit and excellent bleeding subchondral bone. The socket was thoroughly irrigated. The acetabular component was impacted into the appropriate position using fluoroscopy to guide version, inclination, and depth of insertion taking care to have a comparable image of the AP pelvis to the standing image taken in the office. An excellent press-fit was achieved and final position was confirmed using fluoroscopy. The press fit was augmented with a bony cancellus dome screw. The liner was then impacted into the socket. Attention was then turned to the femur. The remnant dorsal lateral capsule was excised. The short external rotators were visible and protected. A bone hook was used to confirm appropriate translation of the trochanter away from the acetabulum. The leg was then extended and adducted and the bone hook was used to elevate the femur for broaching. A box osteotome and blunt tipped canal sound was then utilized to gain access to the femoral canal. We then sequentially broached the femur in appropriate anteversion until excellent torsional stability was achieved. The neck cut was brought flush to the trial broach with a calcar planar. A trial neck and head were then placed onto the broach and the hip was atraumatically reduced under direct visualization. External rotation to 90 was performed to assess stability. Fluoroscopy was brought in. An AP and lateral fluoroscopic image of the proximal femur was obtained to assess position and fill of the trial broach. An AP of the pelvis was then obtained and matched to the preoperative image taken. A bi-ischial bar was then placed and measurements were taken to assess changes in length and offset. The hip was then carefully dislocated, the proximal femur was exposed, and the trial implants were removed. The wound and proximal femur was thoroughly irrigated using sterile saline and pulsatile lavage. The final femoral implant was dispensed and gently tapped into place generating an excellent press-fit. The trunnion was cleansed and the final head was tapped into place to engage the Wei taper. The acetabulum was irrigated and visualized to be free of debris. The hip was carefully reduced. Stability was checked clinically with external rotation to 90 and there was no evidence of instability. Final fluoroscopic images were taken. The wound was then thoroughly irrigated and soaked with a dilute Betadine rinse for 3 minutes. 3 L of sterile saline was irrigated through the wound using pulsatile lavage. Local anesthetic cocktail was injected into the soft tissues around the surgical field. The wound was then closed in layers. A sterile dressing was placed over the surgical incision. The drapes were taken down and the patient was carefully transferred off of the [place] table. Following removal of the boots the leg lengths felt acceptable. The patient was then taken to recovery room having tolerated the procedure well. Jn Ortiz PA-C was required as a skilled assistant track coach due to the complexity of surgery for patient positioning, draping, exposure, retraction, closure of wound and application of dressing. PLAN: The patient can weight-bear as tolerated on the operative extremity. 2 doses of postoperative antibiotics. DVT prophylaxis with aspirin 81 mg twice a day based on preoperative risk stratification. Physical therapy for gait training.
[2024-11-08] MEDS ORDERED: ONDANSETRON 4 MG/2 ML VIAL IVP PRN (14:29)
[2024-11-08] MEDS ORDERED: MAGNESIUM HYDROXIDE 2,400 MG/30 ML CUP PO PRN (14:29)
[2024-11-08] MEDS ORDERED: HYDROcodone/APAP 5-325MG 1 EACH TAB PO PRN (14:29)
[2024-11-08] MEDS ORDERED: HYDROmorphone 1 MG/ML 1 ML SYRINGE IVP PRN (14:29)
[2024-11-08] MEDS ORDERED: TEMAZEPAM 15 MG CAP PO PRN (14:29)
[2024-11-08] MEDS ORDERED: HYDROmorphone 0.5 MG/0.5 ML SYRINGE IVP PRN ×2 (14:29)
[2024-11-08] MEDS ORDERED: hydrOXYzine pamoate 25 MG CAP PO PRN (14:29)
[2024-11-08] MEDS ORDERED: diazePAM 5 MG TAB PO PRN ×2 (14:29)
[2024-11-08] MEDS ORDERED: NALOXONE 0.4 MG/ML 1 ML VIAL IV PRN (14:29)
--- NOTE | 2024-11-08 14:49 | FL ---
EXAMINATION TYPE: FL guidance operating room, XR Hip Limited LT DATE OF EXAM: 11/08/2024 CLINICAL INDICATION: Male, 49 years old with history of OA LEFT HIP, pain. TECHNIQUE: Fluoroscopy. Intraoperative limited views left hip COMPARISON: Prior bilateral hip x-ray May 19, 2024. FINDINGS: Fluoroscopic guidance was provided during left hip replacement procedure performed by Dr. Preciado. A total of 30.7 seconds of fluoroscopic time was utilized during the procedure and 7 spot images was acquired. Images acquired show metallic hardware from total left hip arthroplasty satisfactory in position. TOTAL DAP = 2.8516 Gycm2. IMPRESSION: As Above. [facility], , 11/08/2024 2:47 PM
[2024-11-08] MEDS: DEXAMETHASONE SOD PHOSPHATE 4 MG/ML 1 ML VIAL IV ONE (16:48)
[2024-11-08] MEDS: SODIUM CHLORIDE 0.9% 1,000 ML IV SCH (16:48)
[2024-11-08] MEDS: SENNOSIDES-DOCUSATE SODIUM 1 EACH TAB PO SCH (21:17)
[2024-11-08] MEDS: HYDROcodone/APAP 10-325MG 1 EACH TAB PO PRN (21:25)
[2024-11-08] MEDS: ASPIRIN 81 MG PO SCH (21:25)
[2024-11-08] MEDS: ceFAZolin 2 GM in DEXTROSE 5% IN WATER 50 ML IVPB SCH (21:26)
--- NOTE | 2024-11-09 08:00 | P.DS ---
Providers Attending physician: Syed Preciado Consults: 11/08/24 14:29 Consult Physician Routine Consulting Provider: Alia Irvin Consult Reason/Comments: post op medical management Do you want consulting provider notified?: Yes Primary care physician: Jeremy Carlson [facility] Course: This is a 49-year-old patient, with past medical history of severe left hip osteoarthritis, who failed nonsurgical conservative management. On 11/08/2024 the patient presented to the [facility] pre-op department for scheduled direct anterior total hip arthroplasty with Dr. Preciado. The patient tolerated the procedure well. The patient was transferred to the orthopedic floor. The patient had no acute events over night. The patient's pain has been well- controlled. Patient was examined at bedside. Patient is resting comfortably in bed. No apparent distress. They are awake, alert and able to answer questions. Inspection: The surgical dressing is intact, there is no drainage or strikethrough. The skin surrounding the dressing is free of erythema. There is mild swelling in the operative thigh. Palpation: The operative calf is soft to compression. No calf tenderness. Neurovascular: Operative femoral nerve function is intact. The patient is able to actively plantarflex and dorsiflex their operative ankle and toes. Operative extremity sensation is intact to light touch throughout Their operative foot appears well perfused, palpable dorsalis pedis pulse, and capillary refill under 2 seconds. Patient gets pain medication per pain doctor. Patient will work with physical therapy. If patient passes physical therapy and is cleared by internal medicine he can discharge home today. Plan follow up in two weeks in our office. Please see med rec for a list of accurate medications. Dictation was produced using [employer] dictation software, please excuse any grammatical, word or spelling errors. Assessment: Postop day #1 status post left total hip arthroplasty for severe left hip oste oarthritis Left hip pain Chronic pain Multiple medical problems Plan - Discharge Summary Discharge Rx Participant: No New Discharge Prescriptions: New Aspirin 81 mg PO BID #60 tab Sennosides-Docusate Sodium [Senokot-S] 1 tab PO BID PRN #60 tablet PRN Reason: Constipation No Action Indomethacin [Indocin] 50 mg PO BID Colchicine [Colcrys] 0.6 mg PO DAILY Diclofenac Sodium Gel [Voltaren 1% Gel] 100 gm TOPICAL DAILY PRN PRN Reason: Pain risperiDONE [RisperDAL] 2 mg PO DAILY Gabapentin [Neurontin] 300 mg PO TID 30 Days #90 cap tiZANidine [Zanaflex] 4 mg PO TID PRN 30 Days #90 tab PRN Reason: Muscle Spasm HYDROcodone/APAP 10-325MG [Duvall 10-325] 1 tab PO QID PRN 30 Days #120 tab PRN Reason: Pain Rosuvastatin Calcium [Crestor] 5 mg PO DAILY amLODIPine [Norvasc] 5 mg PO DAILY Pantoprazole [Protonix] 40 mg PO DAILY Lidocaine 4% Patch 1 patch TOPICAL DAILY PRN PRN Reason: Pain busPIRone HCL 30 mg PO DAILY buPROPion XL [Wellbutrin XL] 300 mg PO DAILY Naloxone HCl [Narcan] 4 mg NASAL ONCE PRN 365 Days #1 each PRN Reason: Opioid Reversal Discharge Medication List Colchicine [Colcrys] 0.6 mg PO DAILY 12/02/23 [History] Indomethacin [Indocin] 50 mg PO BID 12/02/23 [History] Pantoprazole [Protonix] 40 mg PO DAILY 12/02/23 [History] Rosuvastatin Calcium [Crestor] 5 mg PO DAILY 12/02/23 [History] amLODIPine [Norvasc] 5 mg PO DAILY 12/02/23 [History] Diclofenac Sodium Gel [Voltaren 1% Gel] 100 gm TOPICAL DAILY PRN 01/06/24 [History] Lidocaine 4% Patch 1 patch TOPICAL DAILY PRN 08/08/24 [History] buPROPion XL [Wellbutrin XL] 300 mg PO DAILY 08/08/24 [History] busPIRone HCL 30 mg PO DAILY 08/08/24 [History] risperiDONE [RisperDAL] 2 mg PO DAILY 08/08/24 [History] Gabapentin [Neurontin] 300 mg PO TID 30 Days #90 cap 08/24/24 [Rx] tiZANidine [Zanaflex] 4 mg PO TID PRN 30 Days #90 tab 08/25/24 [Rx] Naloxone HCl [Narcan] 4 mg NASAL ONCE PRN 365 Days #1 each 08/31/24 [Rx] HYDROcodone/APAP 10-325MG [Duvall 10-325] 1 tab PO QID PRN 30 Days #120 tab 11/01/24 [Rx] Aspirin 81 mg PO BID #60 tab 11/09/24 [Rx] Sennosides-Docusate Sodium [Senokot-S] 1 tab PO BID PRN #60 tablet 11/09/24 [Rx] Follow up Appointment(s)/Referral(s): Syed Preciado MD [Medical Doctor] - 2 Weeks Activity/Diet/Wound Care/Special Instructions: 1. Weight-bear as tolerated on your operative extremity unless instructed otherwise. Use a walker or other assistive device to ambulate. 2. Leave surgical dressing in place. If your dressing becomes saturated with blood, there is drainage, or the dressing becomes loose please contact the office. 3. It is okay to shower with your surgical dressing, but do not submerge in water (no hot tubs, bath's, swimming etc.) 4. Take your blood clot prevention medication as prescribed (aspirin, Eliquis, Xarelto, and Plavix are commonly prescribed medications for blood clot prevention) 5. While taking Duvall or Percocet for pain take a stool softener (Ex: Colace) and drink lots of water. Patient gets pain medicines per pain doctor. 6. Keep all follow-up appointments as scheduled. You will usually be seen in 1-2 weeks following surgery. 7. Please contact the office with any questions or concerns [phone] Resume home Protonix for GI prophylaxis. Discharge Disposition: HOME WITH HOME HEALTH SERVICES
[2024-11-09] MEDS: FAMOTIDINE 20 MG TAB PO SCH (08:09)
[2024-11-09 08:50] LABS: HCT 29.4 % (39.6-50.0); HGB 9.3 g/dL (13.0-17.0); MCH 28.6 pg (27.0-32.0); MCHC 31.6 g/dL (32.0-37.0); MCV 90.5 FL (80.0-97.0); Mean Platelet Volume 10.3 FL (9.5-12.2); Platelet Count 436 X 10*3/uL (140-440); RBC 3.25 X 10*6/uL (4.40-5.60); RDW 16.6 % (11.5-14.5); WBC 16.65 X 10*3/uL (4.50-10.00)
[2024-11-09 08:51] LABS: Basophils # (A) 0.02 X 10*3/uL (0.00-0.10); Basophils % (A) 0.1 %; Eosinophils # (A) 0.01 X 10*3/uL (0.04-0.35); Eosinophils % (A) 0.1 %; Lymphocytes # (A) 1.03 X 10*3/uL (0.90-5.00); Lymphocytes % (A) 6.2 %; Monocytes # (A) 0.94 X 10*3/uL (0.20-1.00); Monocytes % (A) 5.6 %; NRBC Per 100 WBC 0 X 10*3/uL (0.00-0.01); Neutrophils # (A) 14.57 X 10*3/uL (1.80-7.70); Neutrophils % (A) 87.5 %
[2024-11-09] MEDS: MULTIVITAMINS, THERA 1 EACH TAB PO SCH (11:20)
[2024-11-09 14:38] VITALS: BP 103/60; PULSE 67; RESP 17; TEMP 98.3
--- NOTE | 2024-11-09 20:00 | P.ANPRN ---
Procedure Note - Anesthesia - Nerve Block Performed Left Trae Single Time Out Performed: Yes Date of Procedure: 11/08/24 Procedure Start Time: 12:16 Procedure Stop Time: 12:19 Location of Patient: PreOp Indication: Acute Post-Operative Pain, Requested by Surgeon Sedation Type: Sedate with meaningful contact maintained Preparation: Sterile Prep Position: Supine Needle Types: Pajunk Needle Gauge: 21 Ultrasound used to visualize needle placement: Yes Ultrasound used to observe medication spread: Yes Blood Aspirated: No Pain Paresthesia on Injection Noted: No Resistance on Injection: Normal Image Stored and Saved: Yes Events: Uneventful and Well Tolerated (Ropivacaine 0.5% 20 cc was dexamethasone 4 mg)
[2024-11-09] MEDS ORDERED: TEMAZEPAM 15 MG CAP PO PRN (22:00)
--- NOTE | 2024-11-12 23:13 | P.CONS ---
History of Present Illness - Reason for Consult Consult date: 11/09/24 Medical management, status post left total hip arthroplasty - History of Present Illness This is a very pleasant 49-year-old male who was admitted under orthopedics and is status post left total knee arthroplasty secondary to severe left hip osteoarthritis with failed nonsurgical conservative management. Patient follows with Dr. Carlson in the outpatient setting with a past medical history of hyperlipidemia, hypertension, fatty liver disease, osteoarthritis, anxiety/depression/PTSD with extensive history of severe alcohol abuse over 10 years ago, continued ongoing nicotine dependence along with polysubstance many y ears ago. Patient did undergo presurgical clearance reports to feeling well. Incentive spirometer at the bedside recommend to continue using at least 10 times every hour while awake including taking home. Patient did have a CBC this morning with a white count of 16.65, hemoglobin 9.3, platelets 436. White blood count likely reactive as patient does not appear infectious whatsoever and recommend outpatient follow-up with labs in the next few days to assess this. Patient is afebrile denies any chest pain or shortness of breath. Patient reports will be going home today. Patient has worked with physical therapy and did relatively well. Patient is medically stable once cleared by orthopedics. REVIEW OF SYSTEMS: CONSTITUTIONAL: No fever, no malaise, no fatigue. HEENT: No recent visual problems or hearing problems. Denied any sore throat. CARDIOVASCULAR: No chest pain, orthopnea, PND, no palpitations, no syncope. PULMONARY: No shortness of breath, no cough, no hemoptysis. GASTROINTESTINAL: No diarrhea, no nausea, no vomiting, no abdominal pain. NEUROLOGICAL: No headaches, no weakness, no numbness. HEMATOLOGICAL: Denies any bleeding or petechiae. GENITOURINARY: Denies any burning micturition, frequency, or urgency. MUSCULOSKELETAL/RHEUMATOLOGICAL: Denies any joint pain, swelling, or any muscle pain. Reports minimal left hip pain ENDOCRINE: Denies any polyuria or polydipsia. The rest of the 14-point review of systems is negative. PHYSICAL EXAMINATION: GENERAL: The patient is alert and oriented x3, not in any acute distress. Well developed, well nourished. HEENT: Pupils are round and equally reacting to light. EOMI. No scleral icterus. No conjunctival pallor. Normocephalic, atraumatic. No pharyngeal erythema. No thyromegaly. CARDIOVASCULAR: S1 and S2 present. No murmurs, rubs, or gallops. PULMONARY: Chest is clear to auscultation, no wheezing or crackles. ABDOMEN: Soft, nontender, nondistended, normoactive bowel sounds. No palpable organomegaly. MUSCULOSKELETAL: No joint swelling or deformity. EXTREMITIES: No cyanosis, clubbing, or pedal edema. Left hip surgical dressing is dry and intact NEUROLOGICAL: Gross neurological examination did not reveal any focal deficits. SKIN: No rashes. Assessment: Status post left total hip arthroplasty Leukocytosis with a white count of 16.65, likely reactive as patient does not appear infectious History of hyperlipidemia History of hypertension History of fatty liver disease History of osteoarthritis Anxiety/depression/PTSD history History of severe alcohol abuse over 10 years ago Continued ongoing nicotine abuse History of polysubstance abuse in the past THC use GI prophylaxis DVT prophylaxis Full code Plan: Patient was admitted under orthopedic status post left total hip arthroplasty with failure of outpatient treatment and doing relatively well. Patient reports he was able to work with physical therapy and will be going home today. White count is elevated at 16 likely reactive recommend outpatient follow-up with primary care provider for repeat labs. Patient does not appear infectious, denies any shortness of breath, cough, burning with urination and is maintaining 99% oxygen saturation on room air. All medications reviewed and resumed as appropriate Encourage incentive spirometer use at least 10 times every hour while awake Patient is medically stable once cleared by orthopedics Thank you kindly for this consultation we will continue to follow with orthopedics during hospitalization The impression and plan of care has been dictated by Sonali Cheek, Nurse Practitioner as directed. Dr. Antoinette MD I have performed a history and examination and MDM of this patient, discussed the same with the dictator, and agree with the dictator's assessment and plan as written ,documented as a scribe. Based on total visit time, I have performed more than 50% of the visit. Past Medical History Past Medical History: Hyperlipidemia, Hypertension, Liver Disease, Osteoarthritis (OA) Additional Past Medical History / Comment(s): , hx fluid build up around heart 06/2023, fatty liver disease. History of Any Multi-Drug Resistant Organisms: None Reported Past Surgical History: Joint Replacement Additional Past Surgical History / Comment(s): Corrective surgery to mouth and throat as a child, PAIN CLINIC PROCEDURES, anterior approach total right hip 3-7-25. Past Anesthesia/Blood Transfusion Reactions: No Reported Reaction Past Psychological History: Anxiety, Depression, PTSD Smoking Status: Current every day smoker Past Alcohol Use History: Abuse, Heavy Additional Past Alcohol Use History / Comment(s): SMOKES 1 PPD SINCE AGE 10. Hx of ETOH abuse over 10 years ago. OCCASIONAL ALCOHOL NOW(ONCE A WEEK) - INSTRUCTED NO ALCOHOL 24 HRS PRIOR TO PROCEDURE. Past Drug Use History: Cocaine, Marijuana, Methamphetamine Additional Drug Use History / Comment(s): Hx drug use many years ago - NO COCAINE OR METHAPHETAMINES NOW. USES MARIJUANA -INSTRUCTED NO USE AT 24 HOURS PRIOR TO PROCEDURE - Past Family History Father Family Medical History: Coronary Artery Disease (CAD), Myocardial Infarction (CA) Additional Family Medical History / Comment(s): . Medications and Allergies Home Medications Medication Instructions Recorded Confirmed Type Colchicine [Colcrys] 0.6 mg PO DAILY 12/02/23 11/08/24 History Indomethacin [Indocin] 50 mg PO BID 12/02/23 11/08/24 History Pantoprazole [Protonix] 40 mg PO DAILY 12/02/23 11/08/24 History Rosuvastatin Calcium [Crestor] 5 mg PO DAILY 12/02/23 11/08/24 History Diclofenac Sodium Gel [Voltaren 1% 100 gm TOPICAL DAILY PRN 01/06/24 11/08/24 History Gel] Lidocaine 4% Patch 1 patch TOPICAL DAILY PRN 08/08/24 11/08/24 History buPROPion XL [Wellbutrin XL] 300 mg PO DAILY 08/08/24 11/08/24 History busPIRone HCL 30 mg PO DAILY 08/08/24 11/08/24 History risperiDONE [RisperDAL] 2 mg PO DAILY 08/08/24 11/08/24 History Naloxone HCl [Narcan] 4 mg NASAL ONCE PRN 365 Days #1 08/31/24 11/08/24 Rx each HYDROcodone/APAP 10-325MG [[place] 1 tab PO QID PRN 30 Days #120 tab 11/01/24 11/08/24 Rx 10-325] Aspirin 81 mg PO BID #60 tab 11/09/24 Rx Gabapentin [Neurontin] 400 mg PO TID 30 Days #90 cap 11/09/24 Rx Sennosides-Docusate Sodium 1 tab PO BID PRN #60 tablet 11/09/24 Rx [Senokot-S] tiZANidine [Zanaflex] 4 mg PO TID PRN 30 Days #90 tab 11/09/24 Rx Allergies Allergy/AdvReac Type Severity Reaction Status Date / Time lamotrigine [From Lamictal] Allergy Itching Verified 11/08/24 11:00 Physical Exam Vitals: Vital Signs Temp Pulse Pulse Resp BP Pulse Ox FiO2 11/09/24 07:32 98.4 F 69 19 133/81 97 11/09/24 02:04 98.0 F 59 L 18 105/64 97 11/08/24 21:06 98.2 F 90 16 101/67 98 11/08/24 17:05 73 102/66 97 11/08/24 16:45 95 107/71 96 11/08/24 16:35 95 114/75 96 11/08/24 16:25 97 124/80 95 11/08/24 16:05 97 109/69 95 11/08/24 15:55 98.1 F 85 17 119/82 94 L 11/08/24 15:30 88 16 105/69 95 11/08/24 15:15 87 16 107/67 96 11/08/24 15:00 77 14 116/74 96 11/08/24 14:45 80 14 125/73 100 11/08/24 14:36 97.9 F 100 12 124/81 100 11/08/24 12:26 75 17 108/64 97 36 11/08/24 12:21 79 17 102/75 99 37 11/08/24 11:05 97.0 F L 98 18 129/93 98 Intake and Output 11/08/24 11/09/24 11/09/24 22:59 06:59 14:59 Other: Voiding Method Toilet # Voids 2 Weight 92.5 kg Results CBC & Chem 7: 11/09/24 03:13 Labs: Abnormal Lab Results - Last 24 Hours (Table) 11/09/24 Range/Units 03:13 WBC 16.65 H (4.50-10.00) X 10*3/uL RBC 3.25 L (4.40-5.60) X 10*6/uL Hgb 9.3 L (13.0-17.0) g/dL Hct 29.4 L (39.6-50.0) % MCHC 31.6 L (32.0-37.0) g/dL RDW 16.6 H (11.5-14.5) % Immature Gran # 0.08 H (0.00-0.04) X 10*3/uL Neutrophils # 14.57 H (1.80-7.70) X 10*3/uL Eosinophils # 0.01 L (0.04-0.35) X 10*3/uL
== END 2024-11-09 15:12 | disposition home health service (06) ==
LOC: OR 10:28 → 4SSUR 14:28 → OR 11-09 15:12
PROVIDERS: ATTEND Orthopaedic Surgery
DX: M16.12 Unilateral primary osteoarthritis, left hip (principal); M87.9 Osteonecrosis, unspecified; G89.18 Other acute postprocedural pain; I10 Essential (primary) hypertension; E78.5 Hyperlipidemia, unspecified; K21.9 Gastro-esophageal reflux disease without esophagitis; F32.A Depression, unspecified; F41.9 Anxiety disorder, unspecified; F43.10 Post-traumatic stress disorder, unspecified; K76.0 Fatty (change of) liver, not elsewhere classified; D72.829 Elevated white blood cell count, unspecified; F17.210 Nicotine dependence, cigarettes, uncomplicated; Z79.82 Long term (current) use of aspirin; Z79.1 Long term (current) use of non-steroidal anti-inflammatories (NSAID); Z79.899 Other long term (current) drug therapy; Z96.641 Presence of right artificial hip joint; Z88.8 Allergy status to other drugs, medicaments and biological substances
CPT/HCPCS: 27130; 64473; 97161; 85025; 73501; C1776; J2250; J0330; J1100 ×2; J2710; J0690 ×2; J2405; J3010; J1171; J2795; J1885; J2704; J1596; J1308

== ENCOUNTER → 2024-12-11 | Outpatient (CLI) | payer OTHER ==
[2024-12-11 21:14] LABS: Ferritin 131.0 ng/mL (22.0-322.0); Iron 36.0 UG/DL (65-175); LDH 177.0 U/L (120-246); Total Iron Binding Capacity 365.0 UG/DL (228-460)
[2024-12-12 07:51] LABS: Basophils # (A) 0.07 10*3/uL (0.00-0.10); Basophils % (A) 0.6 %; Eosinophils # (A) 0.21 10*3/uL (0.04-0.35); Eosinophils % (A) 1.8 %; HCT 39.7 % (39.6-50.0); HGB 12.0 g/dL (13.0-17.0); Lymphocytes # (A) 2.74 10*3/uL (0.90-5.00); Lymphocytes % (A) 23.5 %; MCH 28.8 pg (27.0-32.0); MCHC 30.2 g/dL (32.0-37.0); MCV 95.4 fL (80.0-97.0); Monocytes # (A) 1.28 10*3/uL (0.20-1.00); Monocytes % (A) 11.0 %; Neutrophils # (A) 7.22 10*3/uL (1.80-7.70); Neutrophils % (A) 62.1 %; Platelet Count 632 10*3/uL (140-440); RBC 4.16 10*6/uL (4.40-5.60); RDW 17.2 % (11.5-14.5); WBC 11.64 10*3/uL (4.50-10.00)
== END | disposition home or self-care (01) ==
LOC: LABWHC1 14:00
PROVIDERS: ATTEND Internal Medicine
DX: R79.9 Abnormal finding of blood chemistry, unspecified (principal)
CPT/HCPCS: 36415; 82728; 83540; 83550; 83615; 85025

== ENCOUNTER → 2025-01-03 | Outpatient (CLI) | payer OTHER ==
[2025-01-03 13:53] VITALS: BP 128/83; PULSE 87; RESP 17
--- NOTE | 2025-01-03 14:22 | P.PAINPG ---
PQRS Measure Charge Sheet Comment: HISTORY OF PRESENT ILLNESS: A 49 yr old male presents today w severe and chronic neck & back pain > 6 mo secondary to BL Hip DJD, R Hip Avascular Necrosis, radiculopathy, spondylosis and facet arthropathy without myelopathy for medication refillls. Pt states pain level is provoked at 6 /10 in intensity, constant, localized in the lumbar spine, predominantly axial, stinging in character without shooting pain. Pain is provoked by standing for periods > 10 min. Pain is alleviated by PT x 6 wks which ended in 2020 (cervical), physician guided home exercises every morning since 2020 (cervical, lumbar), use of a cane for ambulatory assistance, medications, repositioning and rest . Interventional procedures include BL RFA C4-C5/C5-C6 (Feb 2024), TRINY L4-L5 x1 Medications include Neurontin 300mg #90. Discontinued Cannabis use. REVIEW OF ORGAN SYSTEMS: CONSTITUTIONAL: No fevers or chills. No recent weight loss. NEUROLOGICAL: + numbness and tingling along the distal extremities. No seizure disorders or headaches. MUSCULOSKELETAL: + pain PSYCHIATRIC: Denies current depression or suicidal thoughts. Physical Examinations : Constitutional : Cooperative , not in acute distress . Neurologic : Cranial nerve II to XII intact. No focal neurological deficits. Psychiatric : alert & oriented x 3. Matching mood & appropriate affect. Judgment & insight intact. Musculoskeletal : Cervical Spine Motor strength in the deltoid and biceps: Normal right side. Normal Left side Motor strength biceps and the wrist extensors: Normal right side . Normal left side Motor strength in the triceps muscle: Normal right side. Normal left side Deep tendon reflexes: Normal at the biceps. Normal at Brachioradialis. Normal at triceps Vertebral body tenderness to deep palpation over Cervical facet loading test: positive bilaterally C4-C5, C5-C6 Spurling test: positive bilaterally Neck distraction test: positive bilaterally Johnnie sign: positive bilaterally Lumbar spine Motor strength lower extremities ,thigh and legs 5/5 Right side , 5/5 Left side Deep tendon reflexes : Normal Knee Jerk. Normal Ankle Jerk Vertebral body tenderness over L4 Escalante Test positive BL L4-L5 Lumbar facet Loading Test: positive Right / positive Left L4-L5, L5-S1 Range of motion of the lumbar spine Flexion 30 degrees, extension 10 degrees Straight Leg Raise test: Left/ Right positive at degrees Anderson test: positive right / positive left. Severe tenderness over the Sacroiliac joint on the Right / Left sides Gaenslen test: positive bilaterally Seated flexion test: positive bilaterally. Sacral spine : Severe tenderness over the Sacroiliac joint: right side / left side Range of motion: Flexion of the lumbar spine <60 degrees Range of motion: Extension of the lumbar spine <20 degrees Gaenslen's Test positive Anderson test: positive right side / left side Thigh Thrust Test Sacral Thrust Test Imaging: X ray BL hip from 05/19/24 MRI non contrast cervical spine from 08/26/23 reviewed MRI non contrast lumbar spine from 03/28/24 reviewed Assessment/ Plan : Cervical radiculopathy, L4-L5 mild stenosis, R Hip DJF w Avascular Necrosis, L Hip DJD Recommendation of medication management and BL MBB L4-L5, L5-S1 #1. Risks, benefits of procedure discussed and patient verbalized understanding. Protocol for discontinuation/continuation of medication surrounding procedure discussed. Minimal anesthesia including Fentanyl and Versed if clinically indicated. UDS from 05/25/24 reviewed and consistent. Opiate/ narcotic agreement signed 08/23/24. [place] 10/325mg #120, Neurontin 400mg #90, Zanaflex 4mg #90 w RF. Use, side effects, adverse reactions, safe storage discussed. All questions answered. I have spent greater than 30 minutes on patient care today. Dr Lee was available by phone for the evaluation of this patient. The time was used to review the medical records including relevant urine studies and Prescription history (MAPs), review of the available imaging, evaluation and examination of the patient, coordination of care with the medical staff and if applicable referring physicians, as well as creation of the medical record - Pain Location Neck Non-Pharmacological Interventions: Heat Pharmacological Interventions: Medication PQRS Narrative: Smoking Status Current every day smoker Hx Alcohol Use (MH) No Home Medications: Ambulatory Orders Colchicine [Colcrys] 0.6 mg PO DAILY 12/02/23 Indomethacin [Indocin] 50 mg PO BID 12/02/23 Pantoprazole [Protonix] 40 mg PO DAILY 12/02/23 Rosuvastatin Calcium [Crestor] 5 mg PO DAILY 12/02/23 Diclofenac Sodium Gel [Voltaren 1% Gel] 100 gm TOPICAL DAILY PRN 01/06/24 Lidocaine 4% Patch 1 patch TOPICAL DAILY PRN 08/08/24 buPROPion XL [Wellbutrin XL] 300 mg PO DAILY 08/08/24 busPIRone HCL 30 mg PO DAILY 08/08/24 risperiDONE [RisperDAL] 2 mg PO DAILY 08/08/24 Naloxone HCl [Narcan] 4 mg NASAL ONCE PRN 365 Days #1 each 08/31/24 Aspirin 81 mg PO BID #60 tab 11/09/24 Sennosides-Docusate Sodium [Senokot-S] 1 tab PO BID PRN #60 tablet 11/09/24 Gabapentin [Neurontin] 400 mg PO TID 30 Days #90 cap 01/03/25 HYDROcodone/APAP 10-325MG [[place] 10-325] 1 tab PO QID PRN 30 Days #120 tab 01/03/25 HYDROcodone/APAP 10-325MG [[place] 10-325] 1 tab PO QID PRN 30 Days #120 tab 01/03/25 tiZANidine [Zanaflex] 4 mg PO TID PRN 30 Days #90 tab 01/03/25 Controlled Substance Measures - Controlled Substance Measures Is patient prescribed a controlled substance at discharge?: Yes When asked, does pt state using other controlled substances?: Yes If prescribed controlled substance>3 days was MAPS reviewed?: Yes
== END ==
LOC: PNWHC3 13:12
PROVIDERS: ATTEND Specialist
DX: M47.22 Other spondylosis with radiculopathy, cervical region (principal); M48.061 Spinal stenosis, lumbar region without neurogenic claudication; M87.9 Osteonecrosis, unspecified; M16.0 Bilateral primary osteoarthritis of hip; F17.200 Nicotine dependence, unspecified, uncomplicated; Z88.8 Allergy status to other drugs, medicaments and biological substances
CPT/HCPCS: 99212